=== PATIENT | female | born 1985 | race Caucasian/White ===

== ENCOUNTER 2018-01-18 17:50 | Emergency (ER) | payer OTHER, SELFPAY ==
[2018-01-18 17:51] VITALS: BP 115/76; PULSE 113; RESP 14; TEMP 37.3; O2SAT 98; BMI 27.0
--- NOTE | 2018-01-18 18:18 | CT_ITS ---
STUDY: CT ABDOMEN AND PELVIS WITHOUT CONTRAST REASON FOR EXAM: Female, 32 years old. Right lower quadrant pain RADIATION DOSAGE (If Supplied By Facility): CTDIvol = ( 7.40 ) mGy, DLP = ( 392.08 ) mGycm TECHNIQUE: Transaxial images were obtained from the dome of the diaphragm to the symphysis pubis without oral contrast, and without intravenous contrast. Sagittal and coronal images were reconstructed. Individualized dose optimization techniques were used for this CT. COMPARISON: None. FINDINGS: Nonspecific 3 mm peripheral right middle lobe nodule is noted. The visualized portions of the heart are within normal limits. Normal liver. Normal gallbladder and extrahepatic biliary system. Normal spleen. Normal pancreas. Normal bilateral adrenal glands. Normal right kidney. Normal left kidney. Normal visualized stomach. Possible mild ileus of the small intestine. Mild wall thickening of the terminal ileum. Normal colon. The appendix is visualized and appears normal. Normal abdominal aorta. Normal inferior vena cava. Normal retroperitoneum. Normal urinary bladder. Mild pelvic free fluid. Normal uterus. Normal abdominal wall. Normal osseous structures. CT/Abdomen/Pel W ORAL Cont Only IMPRESSION: Possible mild small bowel ileus. Mild wall thickening of the terminal ileum. Mild pelvic free fluid. Normal appendix. Electronically Signed: Madi Jacobs DO at 20:52 EDT Tel [phone], Service support ,
--- NOTE | 2018-01-18 18:18 | NURSING ---
DR GUO PAGED
[2018-01-18 18:29] LABS: Absolute Lymphocyte Count 1.04 X10^3/ul (0.83-4.51); Absolute Neutrophil Count 10.2 X10^3/uL (2.0-7.7); Eosinophils% 0.9 % (0-5); Hematocrit 40.6 % (37-47); Hemoglobin 13.7 g/dl (12.0-15.0); Lymphocyte # 1.04 X10^3/ul (4.0); Lymphocyte % 8.9 % (19-41); Mean Corp Hgb Conc 33.7 g/gl (32-36); Mean Corpuscular Hgb 28.8 pg (27.0-32.0); Mean Corpuscular Volume 85.3 fL (81-99); Mean Platelet Vol. 10.6 fl (6.2-12.0); Monocyte# 0.43 X10^3/uL; Monocyte% 3.7 % (0-10); Neutrophil # 10.15 X10^3/uL (2.7-7.7); Neutrophil % 86.3 % (47-70); POSITIVE COUNT NO; POSITIVE DIFFERENTIAL NO; POSITIVE MORPHOLOGY NO; Platelet Count 198 K/mm3 (150-450); RBC Distribution Width CV 12.4 % (11.6-14.6); RBC Distribution Width SD 38.4 fl (35.1-43.9); Red Blood Count 4.76 M/mm3 (4.2-5.4); White Blood Count 11.7 K/mm3 (4.4-11.0)
[2018-01-18 18:40] LABS: Anion Gap 9 (5-15); BUN 8 mg/dL (7-18); Calcium,Total 8.5 mg/dL (8.5-10.1); Chloride 104 mmol/L (98-107); EST Glomerular Filtration Rate 88 mL/min (>60); Est Glom Filt Rate - Afr Amer 106 mL/min (>60); Estimated Creatinine Clearance 90.84 ml/min; Glucose 84 mg/dL (74-106); Potassium 3.6 mmol/L (3.5-5.1); Sodium Level 137 mmol/L (136-145)
[2018-01-18 18:44] LABS: Pregnancy, Serum, hCG Quali. NEGATIVE Negative (0-9 Nonpreg)
[2018-01-18] MEDS: 0.9% Normal Saline 1,000 ML 1000 ML IV (18:47)
[2018-01-18] MEDS: Ondansetron 4 MG/2 ML Vial IV (18:47)
[2018-01-18 20:22] VITALS: BP 126/80; PULSE 97; RESP 18; O2SAT 99
--- NOTE | 2018-01-18 21:49 | ED.VISSUMM ---
- ER Visit Summary Date of Service: 01/18/18 Chief Complaint: Abdominal pain nausea vomiting History of Present Illness: The patient is a 32 F presenting for evaluation secondary to abdominal pain nausea vomiting. Patient states that she had a relatively sudden onset of right lower quadrant abdominal pain nausea and vomiting at about 730 this morning. Patient states that she had 2 episodes of nonbloody nonbilious emesis, and has had continually worsening pain in her right lower quadrant. Patient states that this is worse with movement palpation and in the car ride. She denies any diarrhea. She does endorse that she has had some subjective fevers. Last menstrual cycle 2 weeks ago, denies any urinary symptoms or vaginal symptoms. Review of systems otherwise negative. Physical Examination: Vital signs are within normal limits, patient is afebrile. General: Patient is well-nourished well-developed and in no acute distress. Head: Normocephalic, atraumatic Eyes: Pupils equal round and reactive bilaterally, extra occular motion intact bialterally ENT: Moist mucous membranes Neck: Supple, no lymphadenopathy, no JVD, no meningismus CVS: Heart regular rate and rhythm, no murmurs, rubs or gallops, radial pulses 2+ bilaterally Resp: Respirations nondistressed, lung sounds clear bilaterally Abdomen: Tenderness in the right lower quadrant over McBurney's point with positive Rovsing obturator and psoas signs. Back: Nontender Extremities: Nontender, atraumatic, active full range of motion, no peripheral edema Skin: warm, no rashes, no petechia Neuro: Alert and oriented x 4, CN 2-12 intact, no lateralizing neurological defecits Psyc: Normal affect Test Results: CBC shows mild leukocytosis of 11, chemistry negative, test negative, CT abdomen and pelvis with p.o. contrast shows a mild ileus with ileitis in the terminal ileum Emergency Department Course and Treatment: Patient presented with abdominal pain. Patient's physical exam was very concerning for the possibility of appendicitis. Patient was given morphine Zofran and a liter normal saline. She did have improvement of her symptoms on repeat evaluation. Patient has a mild leukocytosis, CT abdomen and pelvis shows a normal appendix but did show a possible ileitis in the terminal ileum. I discussed this with general surgery Dr. Allen, and we are in agreement that the patient does not require admission but she likely should have GI follow-up for the possibility of inflammatory bowel disease. Patient will be discharged with a course of Percocet and Zofran. She was given signs and symptoms for which to return. Disposition: Discharge Impression: 1. Terminal ileitis This note was generated with [employer] dictation software. It may contain incorrect words, spelling, and punctuation that were not noted in review of the chart prior to signing ED Disposition - Plan for ED Patient: Disposition: Home or Assisted Living Chief Complaint: Abd Pain Diagnosis: Ileitis, terminal Instructions: ED Abdominal Pain Unkn Cause Prescriptions: Hydrocodone Bitart/Apap 5-325 [[place] 5/325] 1 tab PO Q4H PRN PRN 3 Days #12 tab PRN Reason: Pain Ondansetron [Zofran Odt] 4 mg PO Q8H PRN PRN #10 tab PRN Reason: Nausea Referrals: Bright Moreno MD [STAFF PHYSICIAN] - As soon as possible
--- NOTE | 2018-01-18 21:59 | ED.DCSUM_ITS ---
- ER Visit Summary Date of Service: 01/18/18 Chief Complaint: Abdominal pain nausea vomiting History of Present Illness: The patient is a 32 F presenting for evaluation secondary to abdominal pain nausea vomiting. Patient states that she had a relatively sudden onset of right lower quadrant abdominal pain nausea and vomiting at about 730 this morning. Patient states that she had 2 episodes of nonbloody nonbilious emesis, and has had continually worsening pain in her right lower quadrant. Patient states that this is worse with movement palpation and in the car ride. She denies any diarrhea. She does endorse that she has had some subjective fevers. Last menstrual cycle 2 weeks ago, denies any urinary symptoms or vaginal symptoms. Review of systems otherwise negative. Physical Examination: Vital signs are within normal limits, patient is afebrile. General: Patient is well-nourished well-developed and in no acute distress. Head: Normocephalic, atraumatic Eyes: Pupils equal round and reactive bilaterally, extra occular motion intact bialterally ENT: Moist mucous membranes Neck: Supple, no lymphadenopathy, no JVD, no meningismus CVS: Heart regular rate and rhythm, no murmurs, rubs or gallops, radial pulses 2 + bilaterally Resp: Respirations nondistressed, lung sounds clear bilaterally Abdomen: Tenderness in the right lower quadrant over McBurney's point with positive Rovsing obturator and psoas signs. Back: Nontender Extremities: Nontender, atraumatic, active full range of motion, no peripheral edema Skin: warm, no rashes, no petechia Neuro: Alert and oriented x 4, CN 2-12 intact, no lateralizing neurological defecits Psyc: Normal affect Test Results: CBC shows mild leukocytosis of 11, chemistry negative, test negative, CT abdomen and pelvis with p.o. contrast shows a mild ileus with ileitis in the terminal ileum Emergency Department Course and Treatment: Patient presented with abdominal pain. Patient's physical exam was very concerning for the possibility of appendicitis. Patient was given morphine Zofran and a liter normal saline. She did have improvement of her symptoms on repeat evaluation. Patient has a mild leukocytosis, CT abdomen and pelvis shows a normal appendix but did show a possible ileitis in the terminal ileum. I discussed this with general surgery Dr. Allen, and we are in agreement that the patient does not require admission but she likely should have GI follow-up for the possibility of inflammatory bowel disease. Patient will be discharged with a course of Percocet and Zofran. She was given signs and symptoms for which to return. Disposition: Discharge Impression: 1. Terminal ileitis This note was generated with [employer] dictation software. It may contain incorrect words, spelling, and punctuation that were not noted in review of the chart prior to signing ED Disposition - Plan for ED Patient: Disposition: Home or Assisted Living Chief Complaint: Abd Pain Diagnosis: Ileitis, terminal Instructions: ED Abdominal Pain Unkn Cause Prescriptions: Hydrocodone Bitart/Apap 5-325 [[place] 5/325] 1 tab PO Q4H PRN PRN 3 Days #12 tab PRN Reason: Pain Ondansetron [Zofran Odt] 4 mg PO Q8H PRN PRN #10 tab PRN Reason: Nausea Referrals: Bright Moreno MD [STAFF PHYSICIAN] - As soon as possible
[2018-01-18] MEDS: HYDROcodone Bitartrate/Apap 5/325 Tablet PO (22:16)
[2018-01-18 22:18] VITALS: BP 119/87; PULSE 96; RESP 16; O2SAT 97
== END 2018-01-18 22:18 | disposition home or self-care (01) ==
PROVIDERS: Emergency Provider Emergency Medicine; Family Provider Family Medicine; PCP Family Medicine
DX: K50.00 Crohn's disease of small intestine without complications (principal); D72.829 Elevated white blood cell count, unspecified; F32.9 Major depressive disorder, single episode, unspecified; Z79.899 Other long term (current) drug therapy
CPT/HCPCS: 74176; 80048; 84703; 85025; 96374; 96375; 99283; J7030; A4216; J2405

== ENCOUNTER 2018-03-10 17:30 | Outpatient (RCR) | payer OTHER, SELFPAY ==
--- NOTE | 2018-01-13 15:21 | HP.PTEVAL_ITS ---
Patient's Visit Information CHERISE GERBER is a 32 year old F referred to Physical Therapy by MD HAILEE Scruggs with a diagnosis of LOW BACK PAIN. Date of Evaluation: 01/13/18 Physical Therapist: Jan Antunez PT, - Visit Plan Frequency: 2x /Week Duration: 6 Weeks Plan: intially modlaties ,DLS ,POSTURAL, EX'S STRENGTHENING - Subjective Subjective: This 32 y/o female presents to physical therapy with low back pain many years. Patient has symmtrical lumbar L-S pain. Symptoms worse with bending, side ,backwards ,sitting,standing. Symptoms better with nothing,rest.No trauma or accident. Denies parathesia/tingling. Patient stated possible daughter kicked back when sleeping.Described as ache. Pain affects sleeping. Coughing/ sneezing can increase symptoms. Bowel/bladder good . Patient has overcounter TENS UNIT.Pain housework tasks and ADL'S.Patient has had chiropractor manipulation,estim. 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 SOCAIL: single 1 childern - Pain Bilateral Back Pain Intensity (Out of 10): 4 Pain Intensity Range: 10 - Objective POSTURE: mild foward posture. PALAPTION:L-S ,SI, paraspinals lumbar. NUERO: denies parathesia/tingling,reflexes L3-4,L4-5,L5-S1 2/3. ASSYMITIIES: leg length,pelvis. MMT: quads/hams/hip flexion,4/5,ankle 4/5. LUMBAR ROM: flexion mod loss,extension mod/severe loss,sisde glides min/mod loss. FLEXABILITY: min/ mod hams. TA ACTIVATION: absent - Special Tests L/S Slump test left side: Positive L/S Slump test right side: Positive L/S Left Straight Leg Raise: Positive L/S Right Straight Leg Raise: Positive Lumbar Standing: Flexion - Mechanical Response: No effect Lumbar Standing: Flexion - Symptoms During Testing: Increases Lumbar Standing: Flexion - Symptoms After Testing: Worse Lumbar Standing: Extension - Mechanical Response: No effect Lumbar Standing: Extension - Symptoms During Testing: Increases Lumbar Standing: Extension - Symptoms After Testing: No worse Lumbar Standing: Right Side Glides - Mechanical Response: No effect Lumbar Standing: Right Side [place] - Symptoms During Testing: Increases Lumbar Standing: Right Side [place] - Symptoms After Testing: No worse Lumbar Standing: Left Side [place] - Mechanical Response: No effect Lumbar Standing: Left Side [place] - Symptoms During Testing: Increases Lumbar Standing: Left Side [place] - Symptoms After Testing: No worse Lumbar Lying: Flexion - Mechanical Response: No effect Lumbar Lying: Flexion - Symptoms During Testing: Increases Lumbar Lying: Flexion - Symptoms After Testing: No worse Lumbar Lying: Extension - Mechanical Response: No effect Lumbar Lying: Extension - Symptoms During Testing: Increases Lumbar Lying: Extension - Symptoms After Testing: No worse - Goals Goal 1:: Independant with HEP Goal Time Frame: 4-6 Weeks Goal 2:: Independant with posture for ADL'S Goal Time Frame: 4-6 Weeks Goal 3:: Decrease lumbar pain by 50% or greater to improve function with ADL'S and job demnads/housework. Goal Time Frame: 4-6 Weeks Goal 4:: Patient improve lumbar ROM for function of recovery Goal Time Frame: 4-6 Weeks Goal 5:: Patient increase core strength to improve function pelvic lumbar Goal Time Frame: 4-6 Weeks Goal 6:: Patient be able to perform ADLS' and housework task with min limiations Goal Time Frame: 4-6 Weeks - Rehabilitation Potential Physical Therapy Diagnosis: This patient has symmtrical lumbar pain with pain , poor loss of motion,poor core activation,strength impairs fu nction and ADL'S Rehabilitation Potential: Good - Anticipated Interventions Patient/Client Instruction: Educate patient on: Condition, Plan of Care For the Purpose of:: To decrease pain, To increase ROM, To improve muscle performance and motor function, To improve ability to perform ADL's, To increase tolerance to activity/condition/position, To improve ability of physical actions for home/community/work/leisure, To improve gait and locomotor functions, To improve health of tissue, To decrease soft tissue restriction, To increase flexibility/ROM, To improve ability to perform tasks related to life management Therapeutic Exercise to Include: Strength training, Body mechanics, Postural training, Flexibilty training, Dynamic Lumbar Stabilization, [place] Exercises For the Purpose of:: To decrease pain, To increase ROM, To improve muscle performance and motor function, To improve ability to perform ADL's, To increase tolerance to activity/condition/position, To improve ability of physical actions for home/community/work/leisure, To improve health of tissue, To decrease soft tissue restriction, To increase flexibility/ROM, To improve endurance, To improve ability to perform tasks related to life management TENS: Yes IF ES: Yes Cryotherapy (ice pack, ice massage): Yes Thermo therapy (hot pack): Yes Ultrasound (thermal/non thermal): Yes For the Purpose of:: To decrease pain, To increase ROM, To improve muscle performance and motor function, To increase tolerance to activity/condition/ position, To improve performance and independence with ADL's, To improve ability of physical actions for home/community/work/leisure, To improve health of tissue, To decrease soft tissue restriction, To increase flexibility/ROM, To improve endurance, To improve ability to perform tasks related to life management Thank you for the opportunity to evaluate your patient. For Medicare and Medicare HMO plans, please review the plan of care and approve it. It will need to be FAXED BACK to us at [phone] for Medicare purposes. Please let me know if there are questions or concerns regarding this plan of care. Physician Signature: Date:
--- NOTE | 2018-06-15 13:22 | HP.PTDCNRP_ITS ---
HP - Discharge Summary (1) - Patient Information CHERISE GERBER was seen in my office for initial evaluation on 01/13/18. The following Plan of Care was established for this patient: Initial Frequency: 2x /Week Initial Duration: 6 Weeks - Anticipated Interventions Patient/Client Instruction: Educate patient on: Condition, Plan of Care For the Purpose of:: To decrease pain, To increase ROM, To improve muscle performance and motor function, To improve ability to perform ADL's, To increase tolerance to activity/condition/position, To improve ability of physical actions for home/community/work/leisure, To improve gait and locomotor functions, To improve health of tissue, To decrease soft tissue restriction, To increase flexibility/ROM, To improve ability to perform tasks related to life management Therapeutic Exercise to Include: Strength training, Body mechanics, Postural training, Flexibilty training, Dynamic Lumbar Stabilization, [place] Exercises For the Purpose of:: To decrease pain, To increase ROM, To improve muscle performance and motor function, To improve ability to perform ADL's, To increase tolerance to activity/condition/position, To improve ability of physical actions for home/community/work/leisure, To improve health of tissue, To decrease soft tissue restriction, To increase flexibility/ROM, To improve endurance, To improve ability to perform tasks related to life management TENS: Yes IF ES: Yes Cryotherapy (ice pack, ice massage): Yes Thermo therapy (hot pack): Yes Ultrasound (thermal/non thermal): Yes For the Purpose of:: To decrease pain, To increase ROM, To improve muscle performance and motor function, To increase tolerance to activity/condition/ position, To improve performance and independence with ADL's, To improve ability of physical actions for home/community/work/leisure, To improve health of tissue, To decrease soft tissue restriction, To increase flexibility/ROM, To improve endurance, To improve ability to perform tasks related to life management This patient was last seen in our office 03/03/18. Pertinent comments regarding their Physical therapy will appear below: This patient seen for PT for low back pain with PT interventions focusing DLS, postural ex's,modalties for pain relieve,patient education. Patient progressed well managing pain thus is d/c. At this point I will be discontinuing this patient from physical therapy. I would be happy to see this patient again in the future if found appropriate by the physician. Thank you! Jan Antunez, PT,
== END 2018-03-10 19:00 | disposition home or self-care (01) ==
LOC: PT 17:30
PROVIDERS: Family Provider Family Medicine; PCP Family Medicine; Visit Provider Family Medicine
DX: M54.5 Low back pain (principal)
CPT/HCPCS: 97014; 97035; 97110; 97161; G0283

== ENCOUNTER 2019-02-14 00:43 | Emergency (ER) | payer BC, SELFPAY ==
[2019-02-14 00:45] VITALS: BP 121/85; PULSE 98; RESP 18; TEMP 36.6; O2SAT 100; BMI 26.7
[2019-02-14 00:51] VITALS: RESP 18
--- NOTE | 2019-02-14 01:05 | ED.VISSUMM ---
- ER Visit Summary Date of Service: 02/14/19 Chief Complaint: Right lower quadrant abdominal pain History of Present Illness: The patient is a 33 F who presents for 5 hours of right lower quadrant abdominal pain. Patient states it woke her from sleep. She is having associated nausea. Pain is worse with any movement. The car ride here was uncomfortable. Patient denies any vomiting. She did have an episode of diarrhea yesterday after eating lactose-containing food, she is lactose intolerant. She denies ever having abdominal pain like this after eating lactose. No fever, cough, shortness of breath, chest pain, back pain, vaginal bleeding or discharge, or urinary symptoms. Last menstrual period was 1 week ago. Patient had similar symptoms approximately 1 year ago with the right lower quadrant pain and had a workup for appendicitis that showed a normal appendix but did show terminal ileitis. Patient followed up with Dr. Moreno for colonoscopy that patient states did not show any sign of inflammatory bowel disease or any other abnormalities. Physical Examination: Vital signs: afebrile, hemodynamically stable, no hypoxia on room air General: well nourished, well developed, in no distress, appears uncomfortable, sitting very still Skin: warm, dry, no rash, no pallor HEENT: normocephalic and atraumatic; PERRL, EOMI, moist mucous membranes Cardiovascular: regular rate and rhythm without murmurs, no peripheral edema, 2+ pulses all distal extremities Respiratory: No increased work of breathing, lungs are clear to auscultation bilaterally, no rales, rhonchi or wheezing Abdominal: Abdomen is soft, tenderness in the right lower quadrant, maximal at McBurney's point, negative Rovsing sign, positive obturator sign, negative psoas sign; with normoactive bowel sounds, no guarding or rebound, no masses MSK: Moves all extremities, no deformities, normal strength Neuro: Awake and alert, oriented ?4. No facial droop, sensation and motor function intact and symmetric Test Results: Clinical Impression(s) from Imaging Studies Abdomen/Pelvis CT 02/14/19 01:15 IMPRESSION: No acute findings in the abdomen or pelvis. Specifically there is no acute appendicitis or diverticulitis. A small amount of free fluid in cul-de-sac. This may be physiologic Electronically Signed: Laurent Harrison MD at 2:10 EDT Tel , Service support , Abnormal Lab Results 02/14/19 02/14/19 02/14/19 00:45 00:50 00:50 WBC 13.5 H RBC 4.55 Hgb 13.6 Hct 39.7 MCV 87.3 MCH 29.9 MCHC 34.3 RDW 12.8 RDW Differential 39.8 Plt Count 263 MPV 10.7 Immature Gran % (Auto) 0.100 Neut % (Auto) 83.9 H Lymph % (Auto) 10.5 L [place] % (Auto) 5.0 Eos % (Auto) 0.4 Baso % (Auto) 0.1 Absolute Neuts (auto) 11.3 H Absolute Lymphs (auto) 1.42 Total Counted Not Reportable Sodium 139 Potassium 3.2 L Chloride 107 Carbon Dioxide 27.0 Anion Gap 5 BUN 9 Creatinine 0.80 Estim Creat Clear Calc 90.00 Est GFR (MDRD) Af Amer 106 Est GFR (MDRD) Non-Af 87 BUN/Creatinine Ratio 11.2 Glucose 91 Calcium 8.1 L Total Bilirubin 1.20 H AST 12 L ALT 17 Alkaline Phosphatase 43 L Total Protein 6.8 Albumin 3.6 Globulin 3.2 Albumin/Globulin Ratio 1.1 Serum , Qual Urine Color Yellow Urine Clarity Cloudy Urine pH 5.0 Ur Specific [place] 1.020 Urine Protein Negative Urine Glucose (UA) Normal Urine Ketones 5 H Urine Occult Blood 150 H Urine Nitrite Negative Urine Bilirubin Negative Urine Urobilinogen Normal Ur Leukocyte Esterase 100 H Urine RBC 0-5 SEEN Urine WBC 10-25 SEEN Ur Squamous Epith Cells 10-25 SEEN Urine Bacteria 2+ Urine Mucus 0 SEEN 02/14/19 00:50 WBC RBC Hgb Hct MCV MCH MCHC RDW RDW Differential Plt Count MPV Immature Gran % (Auto) Neut % (Auto) Lymph % (Auto) [place] % (Auto) Eos % (Auto) Baso % (Auto) Absolute Neuts (auto) Absolute Lymphs (auto) Total Counted Sodium Potassium Chloride Carbon Dioxide Anion Gap BUN Creatinine Estim Creat Clear Calc Est GFR (MDRD) Af Amer Est GFR (MDRD) Non-Af BUN/Creatinine Ratio Glucose Calcium Total Bilirubin AST ALT Alkaline Phosphatase Total Protein Albumin Globulin Albumin/Globulin Ratio Serum , Qual NEGATIVE Urine Color Urine Clarity Urine pH Ur Specific [place] Urine Protein Urine Glucose (UA) Urine Ketones Urine Occult Blood Urine Nitrite Urine Bilirubin Urine Urobilinogen Ur Leukocyte Esterase Urine RBC Urine WBC Ur Squamous Epith Cells Urine Bacteria Urine Mucus Medications Given Hydrocodone Bitart/Acetaminophen ([place] 5mg-325mg) 0 tablet PO .TAKE HOME MED THANH Ondansetron HCl (Zofran Odt) 0 mg PO .TAKE HOME MED THANH Discontinued Medications Sodium Chloride () 1,000 mls @ 1,000 mls/hr IV .Q1H ONE Stop: 02/14/19 02:14 Last Admin: 02/14/19 01:24 Dose: 1,000 mls/hr Ketorolac Tromethamine (Toradol) 15 mg IV X1 ONE Stop: 02/14/19 02:22 Morphine Sulfate () 4 mg IV X1 ONE Stop: 02/14/19 01:16 Last Admin: 02/14/19 01:26 Dose: 4 mg Ondansetron HCl (Zofran) 4 mg IV X1 ONE Stop: 02/14/19 01:16 Last Admin: 02/14/19 01:25 Dose: 4 mg Emergency Department Course and Treatment: Patient was given IV fluids, morphine and Zofran. Patient's symptoms are concerning for possible appendicitis, thus CT scan of the abdomen and pelvis was performed. test negative. Patient had a leukocytosis of 13.5. CT scan of the abdomen and pelvis showed a normal appendix and no sign of diverticulitis or other inflammatory conditions. It did show prominent ovaries bilaterally and mild amount of free fluid in the cul-de-sac. Patient was reevaluated and had improvement of her pain with the medications. The right hemipelvis was palpated and had no tenderness or masses. Pain was more localized in McBurney's point. Thus ovarian torsion is highly unlikely and pelvic ultrasound was not performed. Patient was given Toradol for her residual pain. She was given prescription for Zofran and [place] to use for severe pain. Patient discharged home and is to return if any worsening of her condition. Treatment Plan: [] Disposition: [] Impression: Right sided abdominal pain of unknown origin This note was generated with [employer] software. It may contain incorrect words, spelling, and punctuation that were not noted in review of the chart prior to signing ED Disposition - Plan for ED Patient: Disposition: Home or Assisted Living Instructions: ED Abdominal Pain Unkn Cause, ED Abdominal Pain Appendx Poss Prescriptions: Hydrocodone Bitart/Apap 5-325 [[place] 5MG-325MG] 1 tab PO Q6H PRN PRN 2 Days #6 tab PRN Reason: Pain Ondansetron [Zofran Odt] 4 mg PO Q8H PRN PRN #10 tab PRN Reason: Nausea Referrals: Mariann La MD [Primary Care Provider] - 3-5 Days if not improving Additional Instructions: Your workup today did not show any concerning findings for appendicitis. However if your symptoms worsen, you develop new concerning symptoms such as high fever, uncontrolled vomiting, dizziness or lightheadedness, or change in your abdominal pain, please return to the emergency department for another evaluation. Sometimes early appendicitis or other abdominal problems do not show up on CAT scans if it is early in the course of illness. Use [id number] ibuprofen or naproxen as needed for abdominal pain. Use the [place] for severe pain. Use Zofran as needed for nausea. If you have any worsening of your condition or any new concerning symptoms, please return immediately to the emergency department for another evaluation.
--- NOTE | 2019-02-14 01:15 | CT_ITS ---
STUDY: CT ABDOMEN AND PELVIS WITH CONTRAST REASON FOR EXAM: Female, 33 years old. Right-sided abdominal pain and nausea RADIATION DOSAGE (If Supplied By Facility): CTDIvol = ( 12.08 ) mGy, DLP = ( 741.88 ) mGycm TECHNIQUE: Transaxial images were obtained from the dome of the diaphragm to the symphysis pubis without oral contrast. 100ML IV Isovue 370 was administered. Sagittal and coronal images were reconstructed. Individualized dose optimization techniques were used for this CT. COMPARISON: None. FINDINGS: The lung bases are clear. The liver is normal. No dilated intrahepatic biliary radicles. The gallbladder is normal with no calcifications within it. There is no pericholecystic fluid collection or streakiness The spleen is normal. The pancreas is normal. Both adrenals are normal. The kidneys are normal with no masses, calculi or hydronephrosis The stomach is normal. There is no bowel distention, acute appendicitis or diverticulitis. No constricting lesions are seen in large bowel. The abdominal wall is intact with no hernias. There is no ascites or any free intraperitoneal air. No indication of epiploic appendagitis The vascular structures in the retroperitoneum are normal. There is no retrocrural, retroperitoneal or mesenteric adenopathy. The bones and joints are normal. The urinary bladder is normal.--The uterus is retroverted.. A small amount of free fluid in the cul-de-sac. Prominent ovaries are seen bilaterally. A 1.8 cm cyst in the left ovary.. There is no inguinal or pelvic adenopathy. There is no inguinal hernia. . . CT/Abdomen/Pelvis W IV Cont ONLY IMPRESSION: No acute findings in the abdomen or pelvis. Specifically there is no acute appendicitis or diverticulitis. A small amount of free fluid in cul-de-sac. This may be physiologic Electronically Signed: Laurent Harrison MD at 2:10 EDT Tel , Service support ,
[2019-02-14] MEDS: 0.9% Normal Saline 1,000 ML 1000 ML IV (01:24)
[2019-02-14 01:25] LABS: Mucous, Urine 0 SEEN /hpf (<or=2+)
[2019-02-14] MEDS: Ondansetron 4 MG/2 ML Vial IV (01:25)
[2019-02-14] MEDS: Morphine 4 MG/ML Syringe IV (01:26)
[2019-02-14 01:28] LABS: Absolute Lymphocyte Count 1.42 X10^3/ul (0.83-4.51); Absolute Neutrophil Count 11.3 X10^3/uL (2.0-7.7); Basophil# 0.01 X10^3/uL; Basophil% 0.1 % (0-1); Eosinophil# 0.06 X10^3/uL; Eosinophils% 0.4 % (0-5); Hematocrit 39.7 % (37-47); Hemoglobin 13.6 g/dl (12.0-15.0); Lymphocyte # 1.42 X10^3/ul (4.0); Lymphocyte % 10.5 % (19-41); Mean Corp Hgb Conc 34.3 g/gl (32-36); Mean Corpuscular Hgb 29.9 pg (27.0-32.0); Mean Corpuscular Volume 87.3 fL (81-99); Mean Platelet Vol. 10.7 fl (6.2-12.0); Monocyte# 0.67 X10^3/uL; Neutrophil # 11.32 X10^3/uL (2.7-7.7); Neutrophil % 83.9 % (47-70); Platelet Count 263 K/mm3 (150-450); RBC Distribution Width CV 12.8 % (11.6-14.6); RBC Distribution Width SD 39.8 fl (35.1-43.9); Red Blood Count 4.55 M/mm3 (4.2-5.4); White Blood Count 13.5 K/mm3 (4.4-11.0)
[2019-02-14 01:28] LABS: Color, Urine Yellow (Yellow); Glucose, Dipstick Normal (Normal); Ketone-Dipstick 5 mg/dl (Negative); Leukocyte Esterase-Dipstick 100 /ul (Negative); Nitrite-Dipstick Negative (Negative); Occult Blood-Urine 150 /ul (Negative); Protein-Dipstick Negative (Negative); Urine Bilirubin Dipstick Negative (Negative); Urine Clarity Cloudy (Clear); Urine Urobilinogen Normal (Normal)
[2019-02-14 01:29] LABS: POSITIVE COUNT NO; POSITIVE DIFFERENTIAL NO; POSITIVE MORPHOLOGY NO
[2019-02-14 01:33] LABS: Bacteria 2+ /hpf (None Seen); Squamous Epithelial Cells - UA 10-25 SEEN /hpf (5-10); White Blood Cells 10-25 SEEN /hpf (0-5)
[2019-02-14 01:34] LABS: Red Blood Cells-Urine 0-5 SEEN /hpf (0-5)
[2019-02-14 01:40] LABS: ALB/GLOB Ratio 1.1 RATIO (0.9-2.4); AST(SGOT) 12 U/L (15-37); Alanine Aminotransfer ALT/SGPT 17 U/L (13-56); Albumin, Serum 3.6 g/dL (3.2-5.0); Alkaline Phosphatase 43 U/L (45-117); Anion Gap 5 (5-15); BUN 9 mg/dL (7-18); BUN/Creat Ratio 11.2 RATIO (10-20); Calcium,Total 8.1 mg/dL (8.5-10.1); Chloride 107 mmol/L (98-107); EST Glomerular Filtration Rate 87 mL/min (>60); Est Glom Filt Rate - Afr Amer 106 mL/min (>60); Globulin 3.2 g/dL (2.2-4.2); Glucose 91 mg/dL (74-106); Potassium 3.2 mmol/L (3.5-5.1); Protein, Total 6.8 g/dL (6.4-8.2); Sodium Level 139 mmol/L (136-145)
[2019-02-14 01:42] LABS: Pregnancy, Serum, hCG Quali. NEGATIVE Negative (0-9 Nonpreg)
[2019-02-14] MEDS: Ketorolac 15 MG/ML Vial IV (02:38)
[2019-02-14] MEDS: Ondansetron ODT 4 MG Tablet PO (02:41)
[2019-02-14] MEDS: HYDROcodone Bitartrate/Apap 5/325 Tablet PO (02:42)
[2019-02-14 02:43] VITALS: BP 105/75; PULSE 73; RESP 16; O2SAT 100
== END 2019-02-14 02:50 | disposition home or self-care (01) ==
PROVIDERS: Emergency Provider Emergency Medicine; Family Provider Family Medicine; PCP Family Medicine
DX: R10.31 Right lower quadrant pain (principal)
CPT/HCPCS: 74177; 80053; 81001; 84703; 85025; 96361; 96374; 96375; 99284; J7030; Q9967; A4216; J2405

== ENCOUNTER → 2019-03-13 | Outpatient (CLI) | payer BC, SELFPAY ==
[2019-03-13 07:19] VITALS: BMI 26.7
--- NOTE | 2019-03-13 07:32 | RAD_ITS ---
STUDY: X-RAY - RIGHT WRIST REASON FOR EXAM: Female, 33 years old. Pain at the base of the thumb TECHNIQUE: 3 view(s) of the wrist were obtained. COMPARISON: None. FINDINGS: Normal visualized distal radius and ulna. Normal radiocarpal articulation. Normal distal radioulnar articulation. Normal carpal bones. 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 Normal carpometacarpal articulation of the thumb. Normal second through fifth carpometacarpal articulations. Normal visualized metacarpal bones. The soft tissue structures are unremarkable. 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 Electronically Signed: Marivel Mejia, at 8:00 EDT Tel , Service support ,
== END | disposition home or self-care (01) ==
LOC: HPRAD 07:30
PROVIDERS: Family Provider Family Medicine; PCP Family Medicine; Referring Provider Physician Assistant Surgical; Visit Provider Physician Assistant Surgical
DX: S66.911A Strain of unspecified muscle, fascia and tendon at wrist and hand level, right hand, initial encounter (principal)
CPT/HCPCS: 73110

== ENCOUNTER → 2019-03-22 | Outpatient (CLI) | payer OTHER, BC, SELFPAY ==
[2019-03-13 07:19] VITALS: BMI 26.7
--- NOTE | 2019-03-22 10:25 | NEURO ---
NCS and/or EMG Patient Report Ordering Doctor: Td Hightower DATE OF SERVICE: 03/22/19 This is a right upper extremity nerve conduction study and EMG performed on this 33-year-old female with symptoms primarily in her right wrist. She says she has had pain for 5 to 6 years but this became worse approximately 6 months ago associated with repetitive hand movements at work. He describes pain as primarily affecting her wrist however at times she experiences numbness radiating into all fingers. Is healthy otherwise. Right upper extremity sensory and motor nerve conduction studies performed. There is very mild prolongation of the median motor and sensory distal latencies with preservation of amplitudes and conduction velocities. The ulnar motor and sensory and radial sensory responses are normal. The median and ulnar F-wave latencies are normal. Right upper extremity needle electromyography is performed. Muscles evaluate included the first dorsal interosseous, abductor pollicis brevis, brachial radialis, biceps, triceps and deltoid muscles. All muscles demonstrated normal insertional activity with absence of pathologic spontaneous activity. Motor unit potential recruitment pattern and amplitude is normal in all muscles tested. Impression: This study demonstrates very mild carpal tunnel syndrome at the wrist however this does not appear to be clinically significant, the patient primarily describes pain localized to the wrist joint. Otherwise normal study.
== END | disposition home or self-care (01) ==
LOC: PSN 07:16
PROVIDERS: Family Provider Family Medicine; PCP Family Medicine; Referring Provider Physician Assistant Surgical; Visit Provider Physician Assistant Surgical
DX: S63.501A Unspecified sprain of right wrist, initial encounter (principal)
CPT/HCPCS: 95886; 95910

== ENCOUNTER → 2019-04-27 | Outpatient (CLI) | payer BC, SELFPAY ==
[2019-04-21 06:36] VITALS: BMI 26.7
== END | disposition home or self-care (01) ==
LOC: LABSPEC 14:20
PROVIDERS: Family Provider Family Medicine; PCP Family Medicine; Referring Provider Family Medicine; Visit Provider Family Medicine
DX: J02.9 Acute pharyngitis, unspecified (principal)
CPT/HCPCS: 87070; 87077; 87186; 87205

== ENCOUNTER 2019-05-08 08:30 | Outpatient (RCR) | payer OTHER, SELFPAY ==
[2019-03-31 06:34] VITALS: BMI 26.7
--- NOTE | 2019-04-05 09:24 | HP.OTEVAL ---
Patient's Visit Information CHERISE GERBER is a 33 year old F, referred to Occupational Therapy by JACINDA Barksdale, with a diagnosis of right wrist sprain/strain. Date of Evaluation: 04/05/19 Occupational Therapist: CLIVE So/Sajan, CHT - Subjective Subjective: This 33 year old female was seen for OT [place] with dx of wrist strain. 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 . Pt went to and he rec. use of brace during the day while working and not at night, and to ice it and a 5# lift restriction. pt thinks she first saw him march 03 or february 24. Pt states she is currenly on a different line where parts are smaller and occupational therapy assist parts. symptoms now are pressure around wrist, tingling in fingers pain on radial side of wrist. pt states she was given a short thumb brace, but felt this did not limit her much so she bought a wrist cock up and has been using only at work. pt states she has not been icing. is not taking anti-inflamitory- pt arrives from work - ADLs Kitchen: Open jars, Open bottle caps, Ziplock bags Miscellaneous: Use cell phone - Pain right wrist 2 Pain Intensity Range: 1, 7 - ROM Wrist: right 50/40 left 70/55 ROM Comments: right RD 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 Pump Installer: right 5# left 25# Lateral Pinch: right 4# left 8# Tripod Pinch: right 2# left 8# - Sensation Thumb: right 2.83 left 2.83 Index: right 2.83 left 2.83 Middle: right 2.83 left 2.83 Ring: right 2.83 left 2.83 Little: right 2.83 left 2.83 - Nine Hole Peg Right: 18.05 Left: 20.74 Comments: good ability - Special Tests Phalen's (Carpal Tunnel): postitive bilateral - Quick DASH-Disab of Arm,Shoulder& Hand Quick DASH Score: 45.0000 - Goals Goal:: PT will demo an increase in assistant strength by 20# to increase independent with basic occupations of daily living to return pt to PLOF by D/C. Pt will demo an increase in lateral and tripod pinch by 2# to increase pts independent with opening baggies, containers at PLOF by D/C. Goal:: Pt will demo an increase in wrist ROM equal to unaffected wrist to return pt to PLOF with grooming, dressing and home mtg tasks by D/C. Goal:: Pt will report pain no greater than 1/10 with use of affected hand with BADLs and IADLs by d/c. Goal:: Pt will demo understanding of work/lifting and carry ergonomics to decrease stress on tendons to increase pts independent with ADLs, IADLS and work tasks by d/c. - Rehabilitation General Assessment: This 33 year old female demo with positive right wist sprain/strain. Pts limitied with strength and functional use of right UE for ADLs and work tasks. Pt would benefit from skilled OT services 2-3x week for 4 weeks. Today pt was ed on dx and need of supportive brace during work and while sleeping. pt also ed. on nerve gluides and ice.Therapy will progress pt with isometric strengthening and ed. on proper work ergo with wrist positioning. pt demo understanding and agree to POC. Rehabilitation Potential: Good - Anticipated Interventions Anticipated Interventions: A/AAROM/PROM, Strengthening, Modalities, Orthoses, Joint Protection/Energy Conservation, Ergonomic Education - Visit Plan Frequency: 2-3x /Week Duration: 4 Weeks TEXT: Thank you for the opportunity to evaluate your patient. For Medicare and Medicare HMO plans, please review the plan of care and approve it. It will need to be FAXED BACK to us at [phone] for Medicare purposes. Please let me know if there are questions or concerns regarding this plan of care. Physician Signature: Date:
--- NOTE | 2019-05-08 08:59 | HP.OTREVAL ---
JACINDA Barksdale, It has been my pleasure to treat CHERISE GERBER over the last 12 visits for right wrist sprain/strain. Please see the progress note below for an update on the occupational therapy plan of care! Subjective: pt states she is doing better- pt states she can do what she can with a 5# lift restriction- Objective/Function: right tar distributor operator strength 40# a increase from 15# a left tar distributor operator strength of 55# a increase from 25#. right lateral pinch 8# increase from 4# left lateral pinch 12# increase from 8#. right tripod pinch 18# increase from 2# left tripoid pinch strength 20# a increase from 2# Pt is demo a increase in bilateral tar distributor operator and pinch strength- pts continues on a 5# lift restriction until she returns to the dr. Plan Duration: - pt to return to Plan: new measurments. return to for re-eval - pt ed. on use of k-tape for wrist pain and support- as well as weaning from use of her wrist brace. pt demo understanding- pt to return to to decide on cortisone injection Goals - Goals Goal:: PT will demo an increase in tar distributor operator strength by 20# to increase independent with basic occupations of daily living to return pt to PLOF by D/C. Pt will demo an increase in lateral and tripod pinch by 2# to increase pts independent with opening baggies, containers at PLOF by D/C. Goal:: Pt will demo an increase in wrist ROM equal to unaffected wrist to return pt to PLOF with grooming, dressing and home mtg tasks by D/C. Goal:: Pt will report pain no greater than 1/10 with use of affected hand with BADLs and IADLs by d/c. Goal:: Pt will demo understanding of work/lifting and carry ergonomics to decrease stress on tendons to increase pts independent with ADLs, IADLS and work tasks by d/c. Anticipated Interventions Anticipated Interventions: A/AAROM/PROM, Strengthening, Modalities, Orthoses, Joint Protection/Energy Conservation, Ergonomic Education Please do not hesitate to contact me at [phone] by phone or if you have questions or concerns regarding this new plan of care! Sincerely, Kirsten Naranjo, OTR/L, CHT
--- NOTE | 2019-09-08 11:18 | HP.OTDCSUM ---
HP - OT D/C Summary It has been my pleasure to treat CHERISE GERBER under orders from JACINDA Barksdale, for the diagnosis of right wrist sprain/strain for a total of 12 visit(s). Please see the following information for a summary of their discharge status. - Overall Improvement % Improvement: 75 - Objective Objective/Function: right dipping machine operator strength 40# a increase from 15# a left dipping machine operator strength of 55# a increase from 25#. right lateral pinch 8# increase from 4# left lateral pinch 12# increase from 8#. right tripod pinch 18# increase from 2# left tripoid pinch strength 20# a increase from 2# Pt is demo a increase in bilateral dipping machine operator and pinch strength- pts continues on a 5# lift restriction until she returns to the dr. - Goals Patient Goals: Regain Strength, Decrease Pain, Decrease Tingling/Numbness Goal:: PT will demo an increase in dipping machine operator strength by 20# to increase independent with basic occupations of daily living to return pt to PLOF by D/C. Pt will demo an increase in lateral and tripod pinch by 2# to increase pts independent with opening baggies, containers at PLOF by D/C. Goal:: Pt will demo an increase in wrist ROM equal to unaffected wrist to return pt to PLOF with grooming, dressing and home mtg tasks by D/C. Goal:: Pt will report pain no greater than 1/10 with use of affected hand with BADLs and IADLs by d/c. Goal:: Pt will demo understanding of work/lifting and carry ergonomics to decrease stress on tendons to increase pts independent with ADLs, IADLS and work tasks by d/c. - Plan Plan: new measurments. return to for re-eval - pt ed. on use of k-tape for wrist pain and support- as well as weaning from use of her wrist brace. pt demo understanding- pt to return to to decide on cortisone injection - D/C Information If there are questions or concerns regarding this patient's occupational therapy, please fell free to call me at [phone]. Thank you for the referral of this patient. Sincerely, Kirsten Naranjo, OTR/L, CHT
== END 2019-05-08 19:00 | disposition home or self-care (01) ==
LOC: OT 08:30
PROVIDERS: Family Provider Family Medicine; PCP Family Medicine; Visit Provider Physician Assistant Surgical
DX: S66.911D Strain of unspecified muscle, fascia and tendon at wrist and hand level, right hand, subsequent encounter (principal)
CPT/HCPCS: 97035; 97110; 97140; 97166; 97530

== ENCOUNTER 2025-09-11 17:08 | Outpatient (CLI) | payer BC, SELFPAY ==
--- NOTE | 2025-09-11 17:15 | RAD_ITS ---
PROCEDURE: KNEE 4 OR MORE VIEWS 09/11/2025 REASON FOR EXAM: PAIN TECHNIQUE: Procedure Code: RADKN Modality: DX Procedure: KNEE 4 OR MORE VIEWS Laterality: FINDINGS: No evidence of acute fracture or dislocation. The joint spaces are maintained. No knee joint effusion. RAD/Knee 4 or More Views IMPRESSION: No acute osseous abnormalities. Reading Location: [id number]
--- OUTSIDE RECORDS SUMMARY | 2025-09-11 19:19 | XMS RPT_ITS | CCD ---
Author Organization [facility] Care Team Providers Care Nurse Administrator Name Role Phone RICA HADLEY, DR MANNING Primary Care Physician Mariann La Primary Care Provider [phone] Mariann La Primary Care Provider Mariann La Primary Care Provider RICA HADLEY, DR MANNING Primary Care Physician CASA HADLEY, HEIDY Adams Attending Unavailable RICA HADLEY, DR MANNING Primary Care Unavailable DINESH HADLEY, DR AURORA Lindsey Attending Maria Fernanda LA MD, DR MANNING Primary Care Unavailable VIV HADLEY, DR PENN Attending Ty LA MD, DR MANNING Primary Care Unavailable Mariann La Primary Care Provider RICA HADLEY, DR MANNING Primary Care Unavailable CONNOR HUTTON, DR JOEL Pardo Attending Unavailable MARIANN LA Primary Care Unavailable SEGUN MARSHALL Attending Unavailable Allergies Allergy Classification Reported Allergen(s) Allergy Type Date of Onset Reaction(s) Facility (20 sources) Ciprofloxacin; Translations: [ciprofloxacin] Drug Allergy 10-01-2017 [facility] Medications Current Medications Medication Drug Class(es) Dates Sig (Normalized) Sig (Original) albuterol MDI (90 mcg/inh) CFC free inhalation aerosol (3 sources) Start: 09-07-2023 take 1 puff(s) by inhalation every six hours as needed for wheezing albuterol MDI (90 mcg/inh) CFC free inhalation aerosol 1 puff(s), Inhalation, q6h, PRN as needed for wheezing, # 18 gram(s), 0 Refill(s) Start Date: 09/07/23 Status: Ordered Quantity: 18.0 Unit: g Repeat number: 1 Start: 09-07-2023 take 1 puff(s) by in halation every six hours as needed for wheezing albuterol MDI (90 mcg/inh) CFC free inhalation aerosol 1 puff(s), Inhalation, q6h, PRN as needed for wheezing, # 18 gram(s), 0 Refill(s) Start Date: 09/07/23 Status: Ordered amitriptyline hydrochloride 25 mg oral tablet (8 sources) Tricyclic Antidepressant Start: 01-18-2018 take 25 mg by mouth once daily Amitriptyline Active 25 MG PO DAILY January 18, 2018 12:00am Comment on above: Take 25 mg by mouth daily at bedtime. crutches, aluminum (1 source) Start: 02-06-2024 crutches, aluminum Indications: Acute right ankle pain Use as directed. 1 Each 02/06/2024 Active dextromethorphan hydrobromide 1 mg/ml / guaiFENesin 10 mg/ml oral solution (1 source) Uncompetitive B-nmuema-N-aspartat e Receptor Antagonist, Sigma-1 Agonist Start: 09-07-2023 End: 09-10-2023 dextromethorphan-g uaifenesin 10 mg-100 mg/10 mL oral liquid Dose = 5 mL, Oral, q4h, PRN as needed for cough, not to exceed 6 doses/day, X 3 day(s), # 100 mL, 0 Refill(s) Start Date: 09/07/23 Stop Date: 09/10/23 Status: Ordered Norgestimate-Ethinyl Estradiol (1 source) Progestin, Estrogen Start: 01-18-2018 take 1 tablet by mouth once daily Norgestimate-Ethin yl Estradiol Active 1 TABLET PO DAILY January 18, 2018 12:00am fluconazole 100 mg oral tablet (2 sources) Azole Antifungal Start: 02-06-2024 fluconazole (DIFLUCAN) 100 mg tablet Take 1 tablet by mouth once daily. First day take 2 tablets, then one tablet every day until gone. 15 tablet 02/06/2024 Active Start: 02-01-2024 End: 02-01-2024 fluconazole (DIFLUCAN) 150 m g tablet Indications: Candidiasis of breast Take 1 tablet by mouth one time only for 1 dose. Repeat in 3 days as needed. 2 tablet 0 02/01/2024 02/01/2024 Active Comment on above: Take 1 tablet by kenny th one time only for 1 dose. Repeat in 3 days as needed. ibuprofen 600 mg oral tablet (8 sources) Nonsteroidal Anti-inflammatory Drug Start: 7 End: 2 take 1 tablet by mouth every eight hours as needed for pain ibuprofen (MOTRIN) 600 mg tablet Indications: Right arm pain Take 1 tablet by mouth every 8 hours as needed for Pain. 30 tablet 10/01/2017 Active Comment on above: Take 1 tablet by kenny th every 8 hours as needed for Pain. meclizine hydrochloride 25 mg oral tablet (5 sources) Antiemetic Start: 3 take 1 tablet by mouth three times daily meclizine (ANTIVERT) 25 mg tab Take 1 tablet by mouth three times daily. 15 tablet 04/19/2023 Active Start: 01-02-2022 End: 01-09-2022 meclizine 25 mg oral tablet Dose : 25 mg = 1 tab(s), Oral, TID, X 7 day(s), # 21 tab(s), 0 Refill(s), 01/09/22 12:09:00 EST, Vertigo Start Date: 01/02/22 Stop Date: 01/09/22 Status: Ordered Comment on above: Take 1 tablet by kenny th three times daily. NORGESTIMATE-ETHINYL ESTRADIOL (SPRINTEC, 28, ORAL) (7 sources) NORGESTIMATE-ETH INYL ESTRADIOL (SPRINTEC, 28, ORAL) Take by mouth. Active NORGESTIMATE-ETH INYL ESTRADIOL (SPRINTEC, 28, ORAL) Take by mouth. 0 Active Comment on above: Take by mouth. PNV no.95/ferrous fum/folic ac ( ORAL) (7 sources) PNV no.95/ferrou s fum/folic ac ( ORAL) Take by mouth. Active PNV no.95/ferrou s fum/folic ac ( ORAL) Take by mouth. 0 Active Comment on above: Take by mouth. predniSONE 10 mg oral tablet (5 sources) Start: 01-02-2022 End: 01-14-2022 prednisone 10mg tab (TAPER) Taper 40-30-20-10 x 3 days each dose, Oral, qDay, Take with food/meal, # 30 tab(s), 0 Refill(s), Vertigo Start Date: 01/02/22 Stop Date: 01/14/22 Status: Ordered predniSONE (DELT ASONE) 10 mg tablet Take 10 mg by mouth as needed. Active Comment on above: Take 10 mg by mouth as needed. Multivitamins (12 sources) Start: 0 take 1 tablet by mouth once daily Multivitamins Dose = 1 tab(s), Oral, qDay, 0 Refill(s) Start Date: 06/23/20 Status: Ordered Repeat number: 1 Start: 06-23-2020 take 1 tablet by kenny th once daily Multivitamins Dose = 1 tab(s), Oral, qDay, 0 Refill(s) Start Date: 06/23/20 Status: Ordered SUMAtriptan 50 mg oral tablet (1 source) Serotonin-1b and Serotonin-1d Receptor Agonist Start: 04-20-2025 End: 05-20-2025 Imitrex 50 mg oral tablet Dose : 50 mg = 1 tab(s), Oral, qDay, PRN as needed for migraine headache, 1 tab onset , may repeat in 2 hrs. MAX 4 tab(s)/24hrs, X 30 day(s), # 9 tab(s), 0 Refill(s), 05/20/25 10:17:00 PM EDT Start Date: 04/20/25 Stop Date: 05/20/25 Status: Ordered Quantity: 9.0 Unit: tab(s) Repeat number: 1 tobramycin 3 mg/ml ophthalmic solution (1 source) Aminoglycoside Antibacterial Start: 01-13-2023 End: 01-20-2023 take 2 drop(s) into the eye(s) three times daily tobramycin (TOBREX) 0.3 % ophthalmic solution Use 2 Drops in both eyes three times daily for 7 days. 10 mL 0 01/13/2023 01/20/2023 Active Comment on above: Use 2 Drops in both eyes three times daily for 7 days. Completed/Discontinued Medications Medication Drug Class(es) Dates Sig (Normalized) Sig (Original) acetaminophen 325 mg / HYDROcodone bitartrate 5 mg oral tablet (1 source) Opioid Agonist Start: 02-14-2019 End: 02-16-2019 take 1 tablet by mouth every six hours as needed Hydrocodone-Acetamin ophen Discontinued 1 TABLET PO EVERY 6 HOURS NEEDED 6 2 February 14, 2019 2:20am February 16, 2019 12:08am ondansetron 4 mg disintegrating oral tablet (9 sources) Serotonin-3 Receptor Antagonist Start: 02-14-2019 ondansetron orally disintegrating (ZOFRAN ODT) 4 mg disintegrating tablet Take by mouth. 0 02/14/2019 Active Comment on above: Take by mouth. Problems Problem Classification Problem Date Documented Da te Episodic/Chronic Conditions associated with dizziness or vertigo (1 source) Dizziness and giddiness; Translations: [Dizziness and giddiness] Onset: 01-02-2022 Episodic Headache; including migraine (2 sources) Migraine; Translations: [Migraine, unspecified, not intractable, without status migrainosus] Onset: 04-20-2025 Chronic Headache; including migraine (1 source) Headache; Translations: [Headache, unspecified] Onset: 09-15-2023 Episodic Inflammation; infection of eye (except that caused by tuberculosis or sexually transmitteddisease) (1 source) Bilateral conjunctivitis; Translations: [Unspecified conjunctivitis] Episodic Mycoses (1 source) Candidiasis; Translations: [Other sites of candidiasis] 02-01-2024 Episodic Other complications of (12 sources) Anxiety in 08-04-2021 Episodic Other complications of (12 sources) Multigravida of advanced maternal age 0908-04-2021 Episodic Other non-traumatic joint disorders (1 source) Acute ankle pain; Translations: [Pain in right ankle and joints of right foot] 02-07-2024 Episodic Other nutritional; endocrine; and metabolic disorders (12 sources) Obesity 08-04-2021 Chronic Other and delivery including normal (20 sources) ; Translations: [Delivery normal] Onset: 06-19-2021 08-04-2021 Episodic Other upper respiratory infections (1 source) Chronic sinusitis, unspecified; Translations: [Rhinosinusitis] Onset: 09-17-2025 Chronic Other upper respiratory infections (4 sources) Sore throat symptom; Translations: [Acute pharyngitis, unspecified] Onset: 09-07-2023 Episodic Regional enteritis and ulcerative colitis (1 source) Terminal ileitis; Translations: [Crohn's disease of small intestine without complications] Chronic Residual codes; unclassified (1 source) Other specified personal risk factors, not elsewhere classified; Translations: [Other specified personal history presenting hazards to health] Episodic Sprains and strains (1 source) Injury of wrist; Translations: [Strain of unspecified muscle, fascia and tendon at wrist and hand level, right hand, initial encounter] Episodic Results Test Name Value Interpretation Reference Range Facility OV 07-25-2025 [facility] Office Visit ([facility]) ANDRESSA WEEMS ([id number]) 1985 F Date Time Provider Department 07/25/25 7:30 PM SEGUN MARSHALL During your visit today, we recorded the following information about you: Temperature Pulse Respiration Blood pressure 96.9 degrees 75/minute 18/minute 119/87 Weight 93.8 kg Segun Marshall APRN.CNP 07/25/2025 7:28 PM Signed [facility] Andressa Weems is a 39 year old female. Patient presents with: Pain, Sinus: Sinus pain and pressure, cough x8 days HPI The patient is a 39-year-old female with a history of Meniere's disease and anxiety, presenting with sinus pressure x8 days. Sinus Pressure: - Sinus pressure x8 days. - Associated eye pain and ear pressure. - Denies fever; reports chills. - Using eozv-kju-xutdfwf sinus medication. Meniere's Disease: - History of Meniere's disease; uncertain if current ear pressure is related. Anxiety: - Prescribed medication for anxiety; has not taken it for approximately 3 weeks, stating she has been "doing good without it." Allergies: - Allergic to Cipro. No past medical history on file. No past surgical history on file. ALLERGIES Ciprofloxacin MEDICATIONS amoxicillin-clavulanate potassium (AUGMENTIN) 875-125 mg per tablet Take 1 tablet by mouth every 12 hours for 7 days. crutches, aluminum Use as directed. fluconazole (DIFLUCAN) 100 mg tablet Take 1 tablet by mouth once daily. First day take 2 tablets, then one tablet every day until gone. predniSONE (DELTASONE) 10 mg tablet Take 10 mg by mouth as needed. meclizine (ANTIVERT) 25 mg tab Take 1 tablet by mouth three times daily. PNV no.95/ferrous fum/folic ac ( ORAL) Take by mouth. (Patient not taking: Reported on 09/05/2023) amitriptyline (ELAVIL) 25 mg tablet Take 25 mg by mouth daily at bedtime. (Patient not taking: Reported on 12/31/2021 ) ibuprofen (MOTRIN) 600 mg tablet Take 1 tablet by mouth every 8 hours as needed for Pain. (Patient not taking: Reported on 11/21/2019 ) NORGESTIMATE-ETHINYL ESTRADIOL (SPRINTEC, 28, ORAL) Take by mouth. (Patient not taking: Reported on 12/31/2021 ) No family history on file. SOCIAL HISTORY[1] Review of Systems Constitutional: (+) chills, (-) fever Eyes: (+) eye pain Ears/Nose/Mouth/Throat: (+) sinus pressure, (+) ear fullness Objective BP 119/87 Pulse 75 Temp 36.1 ?C (96.9 ?F) Resp 18 Wt 93.8 kg (206 lb 12.7 oz) LMP 02/03/2024 (Exact Date) SpO2 96% No Physical Exam Vitals and nursing note reviewed. Constitutional: General: She is not in acute distress. Appearance: Normal appearance. She is normal weight. She is not ill-appearing, toxic-appearing or diaphoretic. HENT: Head: Normocephalic and atraumatic. Comments: +maxillary sinus pressure Bilaterally Right Ear: Ear canal and external ear normal. Left Ear: Ear canal and external ear normal. Nose: Nose normal. No congestion or rhinorrhea. Mouth/Throat: Mouth: Mucous membranes are moist. Pharynx: Posterior oropharyngeal erythema present. No oropharyngeal exudate. Eyes: General: Right eye: No discharge. Left eye: No discharge. Extraocular Movements: Extraocular movements intact. Conjunctiva/sclera: Conjunctivae normal. Pupils: Pupils are equal, round, and reactive to light. Cardiovascular: Rate and Rhythm: Normal rate and regular rhythm. Pulses: Normal pulses. Heart sounds: Normal heart sounds. No murmur heard. No friction rub. Pulmonary: Effort: Pulmonary effort is normal. No respiratory distress. Breath sounds: Normal breath sounds. No stridor. No wheezing, rhonchi or rales. Chest: Chest wall: No tenderness. Abdominal: General: Abdomen is flat. There is no distension. Palpations: Abdomen is soft. There is no mass. Tenderness: There is no abdominal tenderness. There is no right CVA tenderness, left CVA tenderness, guarding or rebound. Hernia: No hernia is present. Musculoskeletal: General: No swelling, tenderness, deformity or signs of injury. Normal range of motion. Cervical back: Normal range of motion and neck supple. No rigidity. Right lower leg: No edema. Left lower leg: No edema. Lymphadenopathy: Cervical: Cervical adenopathy present. Skin: General: Skin is warm and dry. Coloration: Skin is not jaundiced or pale. Findings: No bruising, erythema, lesion or rash. Neurological: General: No focal deficit present. Mental Status: She is alert and oriented to person, place, and time. Cranial Nerves: No cranial nerve deficit. Sensory: No sensory deficit. Motor: No weakness. Coordination: Coordination normal. Gait: Gait normal. Psychiatric: Mood and Affect: Mood normal. Behavior: Behavior normal. Thought Content: Thought content normal. Judgment: Judgment normal. {ASSESSMENT/PLAN: 1. Rhinosinusitis - ICD9: 473.9, ICD10: J32.9 - (more content not included)... Normal [facility] XR Ankle - right AP and Late ral and obliqueon 02-07-2024 IMPRESSION: No acute osseous abnormality Sausage Stuffer: NIKI Transcribe Date/Time: Feb 07 2024 11:26A Dictated by : YAQUELIN COLLADO MD This examination was interpreted and the report reviewed and electronically signed by: YAQUELIN COLLADO MD on Feb 07 2024 11:28AM [facility] DIVISION OF RADIOLOGY * * *Final Report* * * DATE OF EXAM: Feb 07 2024 11:12AM WOX [id number] - XR ANKLE 3V AP/LAT/OBL RT / PROCEDURE REASON: Acute right ankle pain * * * * Physician Interpretation * * * * EXAMINATION: XR ANKLE 3V AP/LAT/OBL RT CLINICAL HISTORY: Right lateral ankle pain for 2 days Technique: XR ANKLE 3V AP/LAT/OBL RT -- RIGHT with 3 views on 3 images Comparison: None RESULT: No acute fracture or dislocation. Joint spaces are maintained. DIVISION OF RADIOLOGY Provider, Juju Radford [facility] - 02/07/2024 * * *Final Report* * * DATE OF EXAM: Feb 07 2024 11:12AM WOX [id number] - XR ANKLE 3V AP/LAT/OBL RT / PROCEDURE REASON: Acute right ankle pain * * * * Physician Interpretation * * * * EXAMINATION: XR ANKLE 3V AP/LAT/OBL RT CLINICAL HISTORY: Right lateral ankle pain for 2 days Technique: XR ANKLE 3V AP/LAT/OBL RT -- RIGHT with 3 views on 3 images Comparison: None RESULT: No acute fracture or dislocation. Joint spaces are maintained. IMPRESSION IMPRESSION: No acute osseous abnormality Sausage Stuffer: PSCB Transcribe Date/Time: Feb 07 2024 11:26A Dictated by : YAQUELIN COLLADO MD This examination was interpreted and the report reviewed and electronically signed by: YAQUELIN COLLADO MD on Feb 07 2024 11:28AM EST [facility] Radiology Study observation (narrative) [facility] XR Ankle - right AP and Late ral and obliqueOrdered By: [facility] Provider on 02-07-2024 [facility] RESCVIDon 09-07-2023 Adenovirus Not detected Normal Not Detected [facility] ([place]) Comment on above: Performed By: #### R ESCVID #### [facility] [address] [place] [id number] Bordetella Parapertussis Not detected Normal Not Detected [facility] ([place]) Comment on above: Performed By: #### R ESCVID #### [facility] [address] [place] [id number] Bordetella Pertussis Not detected Normal Not Detected [facility] ([place] Comment on above: Performed By: #### R ESCVID #### [facility] [address] [place] [id number] Chlamydophila pneumoniae Not detected Normal Not Detected [facility] ([place] Comment on above: Performed By: #### R ESCVID #### [facility] [address] [place], [place] [id number] Coronavirus 229E (Not COVID-19) Not detected Normal Not Detected [facility] ([place] Comment on above: Performed By: #### R ESCVID #### [place] [address] Coronavirus HKU1 (Not COVID-19) Not detected Normal Not Detected [facility] ([place] Comment on above: Performed By: #### R ESCVID #### [place] [address] Coronavirus NL63 (Not COVID-19) Not detected Normal Not Detected [facility] ([place] Comment on above: Performed By: #### R ESCVID #### [place] [address] Coronavirus OC43 (Not COVID-19) Not detected Normal Not Detected [facility] ([place] Comment on above: Performed By: #### R ESCVID #### [place] [address] Human Metapneumovirus Not detected Normal Not Detected [facility] ([place] Comment on above: Performed By: #### R ESCVID #### [place] [id number] Influenza A Not detected Normal Not Detected [facility] ([place] Comment on above: Performed By: #### R ESCVID #### [facility] [address] [place], [place] [id number] Influenza B Not detected Normal Not Detected [facility] ([place] Comment on above: Performed By: #### R ESCVID #### [facility] [address] [place] [id number] Mycoplasma pneumoniae Not detected Normal Not Detected [facility] ([place] Comment on above: Performed By: #### R ESCVID #### [place] [id number] Parainfluenza 1 Not detected Normal Not Detected [facility] ([place]) Comment on above: Performed By: #### R ESCVID #### [place] [id number] [address] [place] [address] Parainfluenza 2 Not detected Normal Not Detected [facility] ([place]) Comment on above: Performed By: #### R ESCVID #### [facility] [address] [place] [id number] Parainfluenza 3 Not detected Normal Not Detected [facility] ([place] Comment on above: Performed By: #### R ESCVID #### [facility] [address] [place] [address] Parainfluenza 4 Detected Abnormal Not Detected [facility] ([place] Comment on above: Performed By: #### R ESCVID #### [address] [address] Respiratory Syncytial Virus Not detected Normal Not Detected [facility] ([place] Comment on above: Performed By: #### R ESCVID #### [facility] [address] [place], [place] [id number] Rhinovirus/Enteroviru s Not detected Normal Not Detected [facility] ([place] Comment on above: Performed By: #### R ESCVID #### [place] [id number] SARS-CoV-2 (COVID-19) RNA MARITO+probe Ql (Unsp spec) Not detected Normal Not Detected [facility] ([place] Comment on above: Result Comment: This test is being used under the FDA EUA procedure. This assay has been validated in the [facility] for use with nasopharyngeal specimens in [facility]. If a non-validated specimen or test collection method was used, please interpret the results with caution, especially if the test result is negative. A positive test result for COVID-19 indicates that RNA from SARS-CoV-2 was detected, and the patient is infected with the virus and presumed to be contagious. Laboratory test results should always be considered in the context of clinical observations and epidemiological data in making a final diagnosis and patient management decisions. Patient management should follow current CDC guidelines. A negative test result for this test means that SARS-CoV-2 RNA was not present in the specimen above the limit of detection. However, a negative result does not rule out COVID-19 and should not be used as the sole basis for treatment or patient management decisions. A negative result does not exclude the possibility of COVID-19. When diagnostic testing is negative, the possibility of a false negative result should be considered in the context of a patient's recent exposures and the presence of clinical signs and symptoms consistent with COVID-19. The possibility of a false negative result should especially be considered if the patient?s recent exposures or clinical presentation indicate that COVID-19 is likely, and diagnostic tests for other causes of illness (e.g., other respiratory illness) are negative. If COVID-19 is still suspected based on exposure history together with other clinical findings, re-testing should be considered by healthcare providers in consultation with public health authorities. Performed By: #### R ESCVID #### [place] [address] XR CHEST 2 VIEWSon 3 XR CHEST 2 VIEWS ORIGINAL EXAMINATION: TWO XRAY VIEWS OF THE CHEST 09/07/2023 12:40 am COMPARISON: Chest x-ray 02/10/2023. HISTORY: ORDERING SYSTEM PROVIDED HISTORY: Reason for Exam: Shortness of breath FINDINGS: Cardiomediastinal silhouette is within normal limits. No consolidation, pleural effusion, vascular congestion or pneumothorax. No acute osseous abnormality. IMPRESSION: No acute radiographic process. This is a preliminary report created by a resident Interpreted by: Willie Erwin MD Preliminary Report By: Nat Ambrocio Electronically signed By Willie Erwin MD Dictated Date: 09/07/2023 12:43:46 AM Prelim Date: 09/07/2023 12:47:19 AM Sign Date: 09/07/2023 2:03:11 AM Ordering Provider: AURORA Price [facility] ([place]) LABORATORYOrdered By: Wilma Sosa on 09-06-2023 Adenovirus DNA MARITO+non-probe Ql (Nph) Not Detected *NA* (09/06/23 11:56 PM) Invalid Interpretation Code Not Detected AH Auto Viro/Sero SS B. parapertussis [id number] DNA MARITO+non-probe Ql (Nph) Not Detected *NA* (09/06/23 11:56 PM) Invalid Interpretation Code Not Detected AH Auto Viro/Sero SS B. pertussis toxin promoter region MARITO+non-probe Ql (Nph) Not Detected *NA* (09/06/23 11:56 PM) Invalid Interpretation Code Not Detected AH Auto Viro/Sero SS C. pneumoniae DNA MARITO+non-probe Ql (Nph) Not Detected *NA* (09/06/23 11:56 PM) Invalid Interpretation Code Not Detected AH Auto Viro/Sero SS FLUAV RNA MARITO+non-probe Ql (Nph) Not Detected *NA* (09/06/23 11:56 PM) Invalid Interpretation Code Not Detected AH Auto Viro/Sero SS FLUBV RNA MARITO+non-probe Ql (Nph) Not Detected *NA* (09/06/23 11:56 PM) Invalid Interpretation Code Not Detected AH Auto Viro/Sero SS hMPV RNA MARITO+non-probe Ql (Nph) Not Detected *NA* (09/06/23 11:56 PM) Invalid Interpretation Code Not Detected AH Auto Viro/Sero SS M. pneumoniae DNA MARITO+non-probe Ql (Nph) Not Detected *NA* (09/06/23 11:56 PM) Invalid Interpretation Code Not Detected AH Auto Viro/Sero SS Parainfluenza virus 1 RNA MARITO+non-probe Ql (Nph) Not Detected *NA* (09/06/23 11:56 PM) Invalid Interpretation Code Not Detected AH Auto Viro/Sero SS Parainfluenza virus 2 RNA MARITO+non-probe Ql (Nph) Not Detected *NA* (09/06/23 11:56 PM) Invalid Interpretation Code Not Detected AH Auto Viro/Sero SS Parainfluenza virus 3 RNA MARITO+non-probe Ql (Nph) Not Detected *NA* (09/06/23 11:56 PM) Invalid Interpretation Code Not Detected AH Auto Viro/Sero SS Parainfluenza virus 4 RNA MARITO+non-probe Ql (Nph) Detected *ABN* (09/06/23 11:56 PM) Invalid Interpretation Code Not Detected AH Auto Viro/Sero SS Rhinovirus+Enteroviru s RNA MARITO+non-probe Ql (Nph) Not Detected *NA* (09/06/23 11:56 PM) Invalid Interpretation Code Not Detected AH Auto Viro/Sero SS RSV RNA MARITO+non-probe Ql (Nph) Not Detected *NA* (09/06/23 11:56 PM) Invalid Interpretation Code Not Detected AH Auto Viro/Sero SS SARS-CoV-2 (COVID-19) RNA MARITO+probe Ql (Resp) Not Detected 1 *NA* (09/06/23 11:56 PM) Invalid Interpretation Code Not Detected AH Auto Viro/Sero SS Comment on above: Interpretive Data: T his test is being used under the FDA EUA procedure. This assay has been validated in the [facility] for use with nasopharyngeal specimens in [facility]. If a non-validated specimen or test collection method was used, please interpret the results with caution, especially if the test result is negative. A positive test result for COVID-19 indicates that RNA from SARS-CoV-2 was detected, and the patient is infected with the virus and presumed to be contagious. Laboratory test results should always be considered in the context of clinical observations and epidemiological data in making a final diagnosis and patient management decisions. Patient management should follow current CDC guidelines. A negative test result for this test means that SARS-CoV-2 RNA was not present in the specimen above the limit of detection. However, a negative result does not rule out COVID-19 and should not be used as the sole basis for treatment or patient management decisions. A negative result does not exclude the possibility of COVID-19. When diagnostic testing is negative, the possibility of a false negative result should be considered in the context of a patient's recent exposures and the presence of clinical signs and symptoms consistent with COVID-19. The possibility of a false negative result should especially be considered if the patient s recent exposures or clinical presentation indicate that COVID-19 is likely, and diagnostic tests for other causes of illness (e.g., other respiratory illness) are negative. If COVID-19 is still suspected based on exposure history together with other clinical findings, re-testing should be considered by healthcare providers in consultation with public health authorities. STREP A MOLECULAR (POC)on Procedural Control Valid [facility] Strep A (POCT) Negative Negative [facility] XR CHEST 1 VIEWon 02-10-2023 XR CHEST 1 VIEW ORIGINAL EXAMINATION: ONE XRAY VIEW OF THE CHEST 02/09/2023 11:49 pm COMPARISON: None. HISTORY: ORDERING SYSTEM PROVIDED HISTORY: Reason for Exam: fever, cough FINDINGS: The heart size and mediastinal contours are normal. There is patchy airspace disease in the left mid and lower lung zone. No right lung infiltrate is visible. There is no pleural fluid or pneumothorax. The skeletal structures are unremarkable. IMPRESSION: Left lung airspace disease consistent with pneumonia Interpreted by: Cruz Oconnor MD Preliminary Report By: Cruz Oconnor MD Electronically signed By Cruz Oconnor MD Dictated Date: 02/09/2023 11:50:49 PM Prelim Date: 02/09/2023 11:53:07 PM Sign Date: 02/09/2023 11:53:07 PM Ordering Provider: [facility] STREP A MOLECULAR (POC)on Procedural Control Valid [facility] Strep A (POCT) Negative Negative [facility] STREP A MOLECULAR (POC)on Procedural Control Valid [facility] Strep A (POCT) Negative Negative [facility] LABORATORYOrdered By: Kathe Blackmon on 03-31-2022 Hematocrit (Bld) [Volume fraction] 34.9 % Invalid Interpretation Code 37.0 - 47.0 % AO Auto Heme SS Hemoglobin (Bld) [Mass/Vol] 11.9 G/dL Invalid Interpretation Code 12.0 - 16.0 G/dL AO Auto Heme SS LABORATORYOrdered By: Jacinda Rodríguez on 03-29-2022 ABO/Rh Interp Positive Invalid Interpretation Code AO BB SS Antibody Screen Gel Negative ABSC (03/29/22 11:16 PM) Invalid Interpretation Code AO BB SS Basophil, Absolute 0.00 103/mcL Invalid Interpretation Code 0.00 - 0.19 10^3/mcL AO Auto Heme SS Basophils/100 WBC (Bld) 0.2 % Invalid Interpretation Code 0.0 - 2.5 % AO Auto Heme SS Eosinophil, Absolute 0.10 103/mcL Invalid Interpretation Code 0.00 - 0.40 10^3/mcL AO Auto Heme SS Eosinophils/100 WBC (Bld) 0.6 % Invalid Interpretation Code 0.0 - 7.0 % AO Auto Heme SS Erythrocyte distribution width (RBC) [Ratio] 13.5 % Invalid Interpretation Code 11.5 - 14.5 % AO Auto Heme SS Hematocrit (Bld) [Volume fraction] 35.9 % Invalid Interpretation Code 37.0 - 47.0 % AO Auto Heme SS Hemoglobin (Bld) [Mass/Vol] 12.3 G/dL Invalid Interpretation Code 12.0 - 16.0 G/dL AO Auto Heme SS Lymphocyte, Absolute 1.90 103/mcL Invalid Interpretation Code 0.77 - 3.85 10^3/mcL AO Auto Heme SS Lymphocytes/100 WBC (Bld) 19.4 % Invalid Interpretation Code 10.0 - 50.0 % AO Auto Heme SS MCH (RBC) [Entitic mass] 29.6 pg Invalid Interpretation Code 27.0 - 31.2 pg AO Auto Heme SS MCHC (RBC) [Mass/Vol] 34.3 G/dL Invalid Interpretation Code 33.0 - 37.0 G/dL AO Auto Heme SS MCV (RBC) [Entitic vol] 86.2 fL Invalid Interpretation Code 80.0 - 94.0 fL AO Auto Heme SS Monocyte, Absolute 0.50 103/mcL Invalid Interpretation Code 0.15 - 1.00 10^3/mcL AO Auto Heme SS Monocytes/100 WBC (Bld) 5.6 % Invalid Interpretation Code 1.7 - 13.0 % AO Auto Heme SS Neutrophil, Absolute 7.20 103/mcL Invalid Interpretation Code 2.85 - 6.16 10^3/mcL AO Auto Heme SS Neutrophils/100 WBC (Bld) 74.2 % Invalid Interpretation Code 37.0 - 80.0 % AO Auto Heme SS Platelet mean volume (Bld) [Entitic vol] 10.5 fL Invalid Interpretation Code 7.4 - 10.4 fL AO Auto Heme SS Platelets (Bld) [#/Vol] 140 103/mcL Invalid Interpretation Code 130 - 400 10^3/mcL AO Auto Heme SS RBC (Bld) [#/Vol] 4.16 106/mcL Invalid Interpretation Code 4.20 - 5.40 10^6/mcL AO Auto Heme SS WBC (Bld) [#/Vol] 9.70 103/mcL Invalid Interpretation Code 4.60 - 10.80 10^3/mcL AO Auto Heme SS LABORATORYOrdered By: Melania Ford on 03-29-2022 Reagin Ab RPR Ql (S) Non-Reactive (03/29/22 11:16 PM) Invalid Interpretation Code Non-Reactive AH Man Viro/Sero SS LABORATORYOrdered By: Melania Ford on 02-26-2022 C. trachomatis DNA MARITO+probe Ql (Unsp spec) Negative (02/26/22 8:55 AM) Invalid Interpretation Code Negative AH Auto Viro/Sero SS C. trachomatis Interp C. trachomatis DNA not detected. Specimen is presumptive negative forC. trachomatis.A negative result does not preclude C. trachomatis infection becauseresults depend on adequate specimen collection, absence of inhibitors,and sufficient DNA to be detected. Invalid Interpretation Code See CT Interp N AH Auto Viro/Sero SS N. gonorrhoeae DNA MARITO+probe Ql (Unsp spec) Negative (02/26/22 8:55 AM) Invalid Interpretation Code Negative AH Auto Viro/Sero SS N. gonorrhoeae Interp N. gonorrhoeae DNA not detected. Specimen is presumptive negative forN. gonorrhoeae. A negative result does not preclude Neisseria gonorrhoeaeinfection because results depend on adequate specimen collection, absenceof inhibitors, and sufficient DNA to be detected. Invalid Interpretation Code See NG Interp N AH Auto Viro/Sero SS LABORATORYOrdered By: Ivan Borjas on 02-26-2022 Group B Strep PCR Int Group B Streptococ cus DNA not detected by Real-Time Polymerase Chain Reaction (PCR). A negative result does rule out the possibility of Group B Streptococcus. False Negative results may occur when Group B Streptococcus concentration is below the level of detection. If the patient has signs or symptoms of infection, other laboratory tests and clinical information should be used to confirm the negative result. This test is not intended to differentiate carriers of Group B Streptococcus from those with Streptococcus disease. Invalid Interpretation Code AH Auto Viro/Sero SS S. agalactiae DNA MARITO+probe Ql (Unsp spec) Negative 1 (02/26/22 8:55 AM) Invalid Interpretation Code Negative AH Auto Viro/Sero SS Comment on above: Result Comment: Note s 1990 Laboratory - Specimen inform ationOrdered By: Melania Ford on 02-26-2022 Specimen source Nom (Unsp spec) Genital Female (02/26/22 8:55 AM) Invalid Interpretation Code AH Auto Viro/Sero SS LABORATORYOrdered By: Jacinda Rodríguez on 12-31-2021 Basophil, Absolute 0.00 103/mcL Invalid Interpretation Code 0.00 - 0.19 10^3/mcL AO Auto Heme SS Basophils/100 WBC (Bld) 0.1 % Invalid Interpretation Code 0.0 - 2.5 % AO Auto Heme SS Eosinophil, Absolute 0.10 103/mcL Invalid Interpretation Code 0.00 - 0.40 10^3/mcL AO Auto Heme SS Eosinophils/100 WBC (Bld) 0.6 % Invalid Interpretation Code 0.0 - 7.0 % AO Auto Heme SS Erythrocyte distribution width (RBC) [Ratio] 13.2 % Invalid Interpretation Code 11.5 - 14.5 % AO Auto Heme SS Hematocrit (Bld) [Volume fraction] 37.5 % Invalid Interpretation Code 37.0 - 47.0 % AO Auto Heme SS Hemoglobin (Bld) [Mass/Vol] 12.7 G/dL Invalid Interpretation Code 12.0 - 16.0 G/dL AO Auto Heme SS Lymphocyte, Absolute 1.90 103/mcL Invalid Interpretation Code 0.77 - 3.85 10^3/mcL AO Auto Heme SS Lymphocytes/100 WBC (Bld) 22.3 % Invalid Interpretation Code 10.0 - 50.0 % AO Auto Heme SS MCH (RBC) [Entitic mass] 30.5 pg Invalid Interpretation Code 27.0 - 31.2 pg AO Auto Heme SS MCHC (RBC) [Mass/Vol] 33.8 G/dL Invalid Interpretation Code 33.0 - 37.0 G/dL AO Auto Heme SS MCV (RBC) [Entitic vol] 90.1 fL Invalid Interpretation Code 80.0 - 94.0 fL AO Auto Heme SS Monocyte, Absolute 0.30 103/mcL Invalid Interpretation Code 0.15 - 1.00 10^3/mcL AO Auto Heme SS Monocytes/100 WBC (Bld) 4.1 % Invalid Interpretation Code 1.7 - 13.0 % AO Auto Heme SS Neutrophil, Absolute 6.30 103/mcL Invalid Interpretation Code 2.85 - 6.16 10^3/mcL AO Auto Heme SS Neutrophils/100 WBC (Bld) 72.9 % Invalid Interpretation Code 37.0 - 80.0 % AO Auto Heme SS Platelet mean volume (Bld) [Entitic vol] 10.0 fL Invalid Interpretation Code 7.4 - 10.4 fL AO Auto Heme SS Platelets (Bld) [#/Vol] 212 103/mcL Invalid Interpretation Code 130 - 400 10^3/mcL AO Auto Heme SS RBC (Bld) [#/Vol] 4.16 106/mcL Invalid Interpretation Code 4.20 - 5.40 10^6/mcL AO Auto Heme SS WBC (Bld) [#/Vol] 8.60 103/mcL Invalid Interpretation Code 4.60 - 10.80 10^3/mcL AO Auto Heme SS LABORATORYOrdered By: Kathe Blackmon on 12-31-2021 Glucose [Mass/Vol] 177 mg/dL Invalid Interpretation Code 70 - 140 mg/dL AO ADM SS LABORATORYOrdered By: Paulina montejo on 09-01-2021 C. trachomatis DNA MARITO+probe Ql (Unsp spec) Negative (09/01/21 8:44 AM) Invalid Interpretation Code Negative AH Auto Viro/Sero SS C. trachomatis Interp C. trachomatis DNA not detected. Specimen is presumptive negative forC. trachomatis.A negative result does not preclude C. trachomatis infection becauseresults depend on adequate specimen collection, absence of inhibitors,and sufficient DNA to be detected. Invalid Interpretation Code See CT Interp N AH Auto Viro/Sero SS N. gonorrhoeae DNA MARITO+probe Ql (Unsp spec) Negative (09/01/21 8:44 AM) Invalid Interpretation Code Negative AH Auto Viro/Sero SS N. gonorrhoeae Interp N. gonorrhoeae DNA not detected. Specimen is presumptive negative forN. gonorrhoeae. A negative result does not preclude Neisseria gonorrhoeaeinfection because results depend on adequate specimen collection, absenceof inhibitors, and sufficient DNA to be detected. Invalid Interpretation Code See NG Interp N AH Auto Viro/Sero SS Laboratory - Specimen inform ationOrdered By: Paulina Dietrich on 09-01-2021 Specimen source Nom (Unsp spec) Urine (09/01/21 8:44 AM) Invalid Interpretation Code AH Auto Viro/Sero SS Vital Signs Date Time Vital Sign Value Performing Clinician Facility 02-01-2024 11:53-0400 Body temperature 98.1 [degF] Beba Han APRN.DOCK GRADER Work Phone: [facility] 02-01-2024 11:53-0400 Body weight 87.5 kg Beba Han APRN.CNP Work Phone: [facility] 02-01-2024 11:53-0400 Diastolic blood pressure 78 mm[Hg] Beba Praisler-Wood 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 Work Phone: [facility] 02-01-2024 11:53-0400 Heart rate 91 /min Beba Praisler-Wood 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 Work Phone: [facility] 02-01-2024 11:53-0400 Respiratory rate 18 /min Beba Praisler-Wood 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 Work Phone: [facility] 02-01-2024 11:53-0400 SaO2% (BldA) [Mass fraction] 98 % Beba Praisler-Wood 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 Work Phone: [facility] 02-01-2024 11:53-0400 Systolic blood pressure 118 mm[Hg] Beba Praisler-Wood 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 Work Phone: [facility] 09-14-2023 23:34-0500 Blood Pressure Location HEIDY CORMIER MD [facility] 09-14-2023 23:34-0500 Blood Pressure Method HEIDY CORMIER MD [facility] 09-14-2023 23:34-0500 Diastolic Blood Pressure Non-Invasive 91 1 HEIDY CORMIER MD [facility] 09-14-2023 23:34-0500 Heart rate 68 /min HEIDY CORMIER MD [facility] 09-14-2023 23:34-0500 Reason For Taking VItal Signs HEIDY CORMIER MD [facility] 09-14-2023 23:34-0500 Respiratory rate 16 /min HEIDY CORMIER MD [facility] 09-14-2023 23:34-0500 Systolic Blood Pressure Non-Invasive 105 1 HEIYD CORMIER MD [facility] 09-14-2023 22:11-0500 Blood Pressure Location HEIDY CORMIER MD [facility] 09-14-2023 22:11-0500 Blood Pressure Method HEIDY CORMIER MD [facility] 09-14-2023 22:11-0500 Body height 165.1 cm HEIDY CORMIER MD [facility] 09-14-2023 22:11-0500 Body temperature 98.6 [degF] HEIDY CORMIER MD [facility] 09-14-2023 22:11-0500 Body weight 88.5 kg HEIDY CORMIER MD [facility] 09-14-2023 22:11-0500 Diastolic Blood Pressure Non-Invasive 84 1 HEIDY CORMIER MD [facility] 09-14-2023 22:11-0500 Heart rate 80 /min HEIDY CORMIER MD [facility] 09-14-2023 22:11-0500 Respiratory rate 16 /min HEIDY CORMIER MD [facility] 09-14-2023 22:11-0500 Systolic Blood Pressure Non-Invasive 126 1 HEIDY CORMIER MD [facility] 09-07-2023 01:06-0400 Diastolic Blood Pressure Non-Invasive [address] AURORA MONTIEL MD [facility] 09-07-2023 01:06-0400 Heart rate 82 /min DR AURORA MONTIEL MD [facility] 09-07-2023 01:06-0400 Respiratory rate 18 /min DR AURORA MONTIEL MD [facility] 09-07-2023 01:06-0400 Systolic Blood Pressure Non-Invasive [address] AURORA MONTIEL MD [facility] 09-07-2023 00:09-0400 Heart rate 88 /min DR AURORA MONTIEL MD [facility] 09-07-2023 00:09-0400 Respiratory rate 20 /min DR AURORA MONTIEL MD [facility] 09-06-2023 23:47-0400 Body height 165.[address] AURORA MONTIEL MD [facility] 09-06-2023 23:47-0400 Body temperature 98.78 [degF] DR AURORA MONTIEL MD [facility] 09-06-2023 23:47-0400 Body weight 87.[address] AURORA MONTIEL MD [facility] 09-06-2023 23:47-0400 Diastolic Blood Pressure Non-Invasive [address] AURORA MONTIEL MD [facility] 09-06-2023 23:47-0400 Heart rate 85 /min DR AURORA MONTIEL MD [facility] 09-06-2023 23:47-0400 Respiratory rate 18 /min DR AURORA MONTIEL MD [facility] 09-06-2023 23:47-0400 Systolic Blood Pressure Non-Invasive [address] AURORA MONTIEL MD [facility] 09-05-2023 14:15-0400 Body temperature 98.8 [degF] Segun Marshall 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 Work Phone: [facility] 09-05-2023 14:15-0400 Body weight 87.09 kg Segun Marshall 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 Work Phone: [facility] 09-05-2023 14:15-0400 Diastolic blood pressure 78 mm[Hg] Segun Marshall 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 Work Phone: [facility] 09-05-2023 14:15-0400 Heart rate 83 /min Segun Marsahll 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 Work Phone: [facility] 09-05-2023 14:15-0400 Respiratory rate 21 /min Segun Marshall 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 Work Phone: [facility] 09-05-2023 14:15-0400 SaO2% (BldA) [Mass fraction] 98 % Segun Marshall 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 Work Phone: [facility] 09-05-2023 14:15-0400 Systolic blood pressure 104 mm[Hg] Segun Marshall 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 Work Phone: [facility] 01-31-2023 13:25-0400 Body temperature 97.5 [degF] Manuel Pendlebury 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 Work Phone: [facility] 01-31-2023 13:25-0400 Body weight 81.65 kg Manuel Pendlebury 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 Work Phone: [facility] 01-31-2023 13:25-0400 Diastolic blood pressure 64 mm[Hg] Manuel Pendlebury 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 Work Phone: [facility] 01-31-2023 13:25-0400 Heart rate 86 /min Manuel Pendlebury 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 Work Phone: [facility] 01-31-2023 13:25-0400 Respiratory rate 16 /min Manuel Pendlebury 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 Work Phone: [facility] 01-31-2023 13:25-0400 SaO2% (BldA) [Mass fraction] 98 % Manuel Jimenez 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 Work Phone: [facility] 01-31-2023 13:25-0400 Systolic blood pressure 122 mm[Hg] Manuel Jimenez 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 Work Phone: [facility] 01-13-2023 19:01-0500 Body temperature 97.81 [degF] Segun Marshall 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 Work Phone: [facility] 01-13-2023 19:01-0500 Body weight 86.55 kg Segun Marshall 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 Work Phone: [facility] 01-13-2023 19:01-0500 Diastolic blood pressure 72 mm[Hg] Segun Marshall 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 Work Phone: [facility] 01-13-2023 19:01-0500 Heart rate 79 /min Segun Marshall 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 Work Phone: [facility] 01-13-2023 19:01-0500 Respiratory rate 21 /min Segun Marshall 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 Work Phone: [facility] 01-13-2023 19:01-0500 SaO2% (BldA) [Mass fraction] 98 % Segun Marshall 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 Work Phone: [facility] 01-13-2023 19:01-0500 Systolic blood pressure 122 mm[Hg] Segun Marshall 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 Work Phone: [facility] 07-13-2022 10:41-0400 Body temperature 98.71 [degF] Rhonda Montoya 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 Work Phone: [facility] 07-13-2022 10:41-0400 Body weight 81.19 kg Rhonda Montoya 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 Work Phone: [facility] 07-13-2022 10:41-0400 Diastolic blood pressure 70 mm[Hg] Rhonda Montoya 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 Work Phone: [facility] 07-13-2022 10:41-0400 Heart rate 118 /min Rhonda Montoya APRN.DOCK GRADER Work Phone: [facility] 07-13-2022 10:41-0400 Respiratory rate 18 /min Rhondanaga Montoya APRN.DOCK GRADER Work Phone: [facility] 07-13-2022 10:41-0400 SaO2% (BldA) [Mass fraction] 98 % Rhonda Montoya APRN.DOCK GRADER Work Phone: [facility] 07-13-2022 10:41-0400 Systolic blood pressure 122 mm[Hg] Rhondanaga Montoya APRN.DOCK GRADER Work Phone: [facility] 03-31-2022 00:30-0400 Body temperature 97.7 [degF] CAROLINA RAZA MD [facility] 03-31-2022 00:30-0400 Diastolic blood pressure 70 mm[Hg] CAROLINA RAZA MD [facility] 03-31-2022 00:30-0400 Heart rate 73 /min CAROLINA RAZA MD [facility] 03-31-2022 00:30-0400 Respiratory rate 18 /min CAROLINA RAZA MD [facility] 03-31-2022 00:30-0400 Systolic blood pressure 117 mm[Hg] CAROLINA RAZA MD [facility] 03-30-2022 18:02-0400 Body temperature 96.8 [degF] CAROLINA RAZA MD [facility] 03-30-2022 18:02-0400 Diastolic blood pressure 66 mm[Hg] CAROLINA RAZA MD [facility] 03-30-2022 18:02-0400 Heart rate 80 /min CAROLINA RAZA MD [facility] 03-30-2022 18:02-0400 Mean blood pressure 83 mm[Hg] CAROLINA RAZA MD [facility] 03-30-2022 18:02-0400 Respiratory rate 18 /min CAROLINA RAZA MD [facility] 03-30-2022 18:02-0400 Systolic blood pressure 116 mm[Hg] CAROLINA RAZA MD [facility] 03-30-2022 07:45-0400 Diastolic blood pressure 73 mm[Hg] CAROLINA RAZA MD [facility] 03-30-2022 07:45-0400 Heart rate 66 /min CAROLINA RAZA MD [facility] 03-30-2022 07:45-0400 Mean blood pressure 85 mm[Hg] CAROLINA RAZA MD [facility] 03-30-2022 07:45-0400 Respiratory rate 16 /min CAROLINA RAZA MD [facility] 03-30-2022 07:45-0400 Systolic blood pressure 109 mm[Hg] CAROLINA RAZA MD [facility] 03-30-2022 07:15-0400 Heart rate 77 /min CAROLINA RAZA MD [facility] 03-30-2022 07:15-0400 Mean blood pressure 76 mm[Hg] CAROLINA RAZA MD [facility] 03-30-2022 04:22-0400 Body temperature 97.7 [degF] CAROLINA RAZA MD [facility] 03-30-2022 00:49-0400 Body temperature 97.88 [degF] CAROLINA RAZA MD [facility] 03-29-2022 22:35-0400 Body height 165.1 cm CAROLINA RAZA MD [facility] 03-29-2022 22:35-0400 Body weight 91.2 kg CAROLINA RAZA MD [facility] 03-29-2022 22:35-0400 Body weight 33.46 kg/m2 CAROLINA RAZA MD [facility] 03-29-2022 22:11-0400 Body temperature 98.06 [degF] CAROLINA RAZA MD [facility] 03-16-2022 16:00-0400 Body temperature 98.06 [degF] OSIEL RUFFIN MD [facility] 03-16-2022 16:00-0400 Diastolic blood pressure 66 mm[Hg] OSIEL RUFFIN MD [facility] 03-16-2022 16:00-0400 Heart rate 76 /min OSIEL RUFFIN MD [facility] 03-16-2022 16:00-0400 Mean blood pressure 77 mm[Hg] OSIEL RUFFIN MD [facility] 03-16-2022 16:00-0400 Respiratory rate 16 /min OSIEL RUFFIN MD [facility] 03-16-2022 16:00-0400 Systolic blood pressure 100 mm[Hg] OSIEL RUFFIN MD [facility] 03-02-2022 16:26-0400 Body temperature 97.88 [degF] CAROLINA RAZA MD [facility] 03-02-2022 16:26-0400 Diastolic blood pressure 57 mm[Hg] CAROLINA RAZA MD [facility] 03-02-2022 16:26-0400 Heart rate 76 /min CAROLINA RAZA MD [facility] 03-02-2022 16:26-0400 Respiratory rate 18 /min CAROLINA RAZA MD [facility] 03-02-2022 16:26-0400 Systolic blood pressure 123 mm[Hg] CAROLINA RAZA MD [facility] 02-23-2022 16:07-0400 Body temperature 97.88 [degF] CAROLINA RAZA MD [facility] 02-23-2022 16:07-0400 Diastolic blood pressure 65 mm[Hg] CAROLINA RAZA MD [facility] 02-23-2022 16:07-0400 Heart rate 90 /min CAROLINA RAZA MD [facility] 02-23-2022 16:07-0400 Mean blood pressure 80 mm[Hg] CAROLINA RAZA MD [facility] 02-23-2022 16:07-0400 Respiratory rate 18 /min CAROLINA RAZA MD [facility] 02-23-2022 16:07-0400 Systolic blood pressure 110 mm[Hg] CAROLINA RAZA MD [facility] 01-02-2022 12:29-0500 Heart rate 74 /min DR SHANNEN MCGEE MD [facility] 01-02-2022 12:29-0500 Respiratory rate 16 /min DR SHANNEN MCGEE MD [facility] 01-02-2022 11:46-0500 Body temperature 98.6 [degF] DR SHANNEN MCGEE MD [facility] 01-02-2022 11:46-0500 Diastolic blood pressure 80 mm[Hg] DR SHANNEN MCGEE MD [facility] 01-02-2022 11:46-0500 Heart rate 98 /min DR SHANNEN MCGEE MD [facility] 01-02-2022 11:46-0500 Respiratory rate 18 /min DR SHANNEN MCGEE MD [facility] 01-02-2022 11:46-0500 Systolic blood pressure 115 mm[Hg] DR SHANNEN MCGEE MD [facility] Encounters Encounter Date Encounter Type Care Provider Facility Start: 07-25-2025 End: 07-25-20[facility] Start: 04-20-2025 End: 04-20-2025 Emergency department patient visit DR JOEL RYAN DO [facility] Start: 02-07-2024 End: 02-07-2024 Subsequent hospital visit by physician [facility]r [facility] Work Phone: Radiology Comment on above: Acute right ankle pa in [M25.571] Start: 02-01-2024 End: 02-01-2024 Patient encounter procedure Beba Han APRN.CNP Work Phone: [facility] Comment on above: Candidiasis of breas t (Primary Dx) Start: 09-15-2023 End: 09-15-2023 Emergency department patient visit HEDIY CORMIER MD Facility:B Start: 09-14-2023 End: 09-15-2023 Emergency department patient visit HEIDY CORMIER MD [facility] Start: 09-07-2023 Telephone encounter Beba Sargent Williams 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 Work Phone: [facility] Comment on above: Results Start: 09-07-2023 End: 09-07-2023 Emergency department patient visit DR AURORA MONTIEL MD Facility:B Start: 09-06-2023 End: 09-07-2023 Emergency department patient visit DR AURORA MONTIEL MD [facility] Start: 09-05-2023 End: 09-05-2023 Patient encounter procedure Segun Marshall 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 Work Phone: [facility] Comment on above: URI, acute (Primary Dx) Start: 02-09-2023 End: 02-10-2023 Emergency department patient visit DR FILI NAM MD Facility:B Start: 01-31-2023 End: 01-31-2023 Office outpatient visit 15 minutes Manuel Jimenez 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 Work Phone: [facility] Comment on above: Sore throat (Primary Dx) Start: 01-13-2023 End: 01-13-2023 Patient encounter procedure Segun Marshall 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 Work Phone: [facility] Comment on above: Conjunctivitis of bacilio th eyes, unspecified conjunctivitis type (Primary Dx) Start: 07-13-2022 End: 07-13-2022 Patient encounter procedure Rhonda Montoya 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 Work Phone: [facility] Comment on above: Sore throat (Primary Dx); At increased risk of exposure to COVID-19 virus Start: 06-22-2022 End: 06-22-2022 Departed Referred [facility] Out[facility] Start: 03-29-2022 End: 03-31-2022 Evaluation and management of inpatient CAROLINA RAZA MD [facility] Start: 03-23-2022 End: 03-23-2022 SAME DAY STAY OSIEL RUFFIN MD [facility] Start: 03-16-2022 End: 03-16-2022 SAME DAY STAY OSIEL RUFFIN MD [facility] Start: 03-02-2022 End: 03-02-2022 SAME DAY STAY CAROLINA RAZA MD [facility] Start: 02-26-2022 End: 03-02-2022 Outreach Lab KELSEY SOLANO FLAVOR ROOM WORKER-DOCK GRADER [facility] Start: 02-23-2022 End: 02-23-2022 SAME DAY STAY CAROLINA RAZA MD [facility] Start: 01-02-2022 End: 01-02-2022 Emergency department patient visit DR SHANNEN MCGEE MD [facility] Start: 12-31-2021 End: 12-31-2021 Patient encounter procedure KELSEY SOLANO FLAVOR ROOM WORKER-DOCK GRADER [facility] Start: 09-01-2021 End: 09-05-2021 Outreach Lab RITA KEE MD [facility] Procedures Date Procedure Procedure Detail Performing Clinician Start: 02-07-2024 Radex ankle complete minimum 3 views Cass Munson 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 Work Phone: Start: 09-05-2023 STREP A MOLECULAR (POC) Segun Marshall 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 Work Phone: Start: 01-31-2023 STREP A MOLECULAR (POC) Megan Matute PA-C Work Phone: Start: 07-13-2022 STREP A MOLECULAR (POC) Rhonda Montoya 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 Work Phone: None (qualifier value) KRISHNA KEE MD Plan of Treatment Date Care Activity Detail Author Start: 01-23-2032 Urine microalbumin profile DTaP,Tdap,Td Vaccine (3 - Td or Tdap) [facility] Start: 07-09-2024 Covid-19 Vaccine () Covid-19 Vaccine () [facility] Start: 07-09-2024 Influenza vaccination Influenza Vacc ine (#1) [facility] Start: 11-08-2023 Depression Assessment Depression Ass essment [facility] Start: 09-05-2023 End: 09-19-2023 COVID & INFLUENZA A/B & RSV NAAT, ROUTINE [facility] Work Phone: Comment on above: Expected: 09/05/2023 , Expires: 09/19/2023 Start: 07-09-2023 Covid-19 Vaccine ( season) Covid-19 Vaccine ( season) [facility] Start: 07-09-2023 Influenza vaccination Influenza Vacc ine (#1) [facility] Start: 11-08-2022 DEPRESSION ASSESSMENT DEPRESSION ASS ESSMENT [facility] Start: 07-13-2022 End: 07-27-2022 Influenza virus A and B RNA and SARS-CoV-2 (COVID-19) N gene panel - Respiratory specimen by MARITO with probe detection COVID WITH FLUA+B, ROUTINE Microbiology Routine Sore throat At increased risk of exposure to COVID-19 virus Expected: 07/13/2022, Expires: 07/27/2022 [facility] Work Phone: Comment on above: Expected: 07/13/2022 , Expires: 07/27/2022 Start: 07-09-2022 Influenza vaccination INFLUENZA (#1) [facility] Start: 12-04-2021 COVID-19 VACCINE (3 - Booster for Micha series) COVID-19 VACCINE (3 - Booster for Micha series) [facility] Start: 2015 HPV TESTING HPV TESTING [facility] Start: 2015 Screening for malign ant neoplasm of cervix HPV Testing [facility] Start: 2006 PAP TESTING PAP TESTING [facility] Start: 2006 Screening for malign ant neoplasm of cervix [facility] Start: 2004 Hepatitis B Vaccine (1 of 3 - 19+ 3-dose series) Hepatitis B Vaccine (1 of 3 - 19+ 3-dose series) [facility] Start: 2004 Urine microalbumin profile DTAP,TDAP,TD (1 - Tdap) [facility] Start: 2003 Anxiety Screening Anxiety Screening [facility] Start: 2003 [facility]: [facility] HEPATITIS C SCREENING HEPATITIS C [facility] Start: 2003 Hepatitis C screening Hepatitis C [facility] Start: 2003 HIV SCREENING HIV SCREENING [facility] Start: 2003 HIV screening HIV Screening [facility] Start: 1997 Adult depression screening assessment DEPRESSION SCREENING [facility] Start: 1985 HEPATITIS B (1 of 3 - 3-dose series) HEPATITIS B (1 of 3 - 3-dose series) [facility] Start: 1985 Hepatitis B Vaccine (1 of 3 - 3-dose series) Hepatitis B Vaccine (1 of 3 - 3-dose series) [facility] Patient referral [facility] Work Phone: ROUTINE FLU A/B + RSV ROUTINE FL U A/B + RSV Lab Routine URI, acute 09/05/2023 3:05 PM EDT [facility] Work Phone: SARS-CoV-2 (COVID-19 ) RNA [Presence] in Respiratory specimen by MARITO with probe detection COVID NAAT, UPPER RESPIRATORY, ROUTINE Microbiology Routine URI, acute 09/05/2023 3:05 PM EDT [facility] Work Phone: Immunizations Immunization Date Immunization Notes Care Provider Aiden cornell 08-26-2022 influenza virus vaccine, unspecified formulation Segun Marshall 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 Work Phone: [facility] 01-22-2022 tetanus toxoid, redu gerardo diphtheria toxoid, and acellular pertussis vaccine, adsorbed; Translations: [Boostrix (Tdap)] CAROLINA RAZA MD [facility] Comment on above: Result Comment: [facility] # [id number] 03-07-2021 SARS-CoV-2 (COVID-19 ) Ad26 vaccine, recombinant KELSEY ROBERTSKINSON FLAVOR ROOM WORKER-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 1985 Unknown [id number] 1985 Unknown [id number] 1985 Unknown [id number] 1985 Unknown [id number] Self-pay SELF PAY INSURANCE [id number] Unknown SELF PAY INSURANCE [id number] Social History Date Type Detail Facility Start: 12-20-2019 Never smoked t obacco (finding) [facility] Start: 1985 Sex Assigned At Female [facility] Start: 05-09-2019 Tobacco smoking stat [facility] Unknown if ever smoked [facility] Work Phone: Start: 06-14-2022 End: 02-06-2024 Alcohol intake Not Asked [facility] Start: 1985 Sex Assigned At Not on file [facility] Start: 07-03-2022 End: 07-13-2022 Exposure to SARS-CoV-2 (event) Not sure [facility] Start: 10-16-2020 End: 09-05-2023 History of Social function [facility] Start: 10-16-2020 End: 09-05-2023 Tobacco use panel [facility] National Score (1-10 0), lower number is lower risk Not on file [facility] Sexual Orientation [facility] Start: 12-29-2018 Sex Female (finding) [facility] Functional Status Date Assessment Result Facility 09-07-2023 Functional Status Up ad heather [facility] 03-31-2022 Functional Status Safety level maintained [facility] 03-31-2022 Functional Status [facility] 03-31-2022 Functional Status [facility] 03-31-2022 Functional Status Ambulation in [facility] 03-30-2022 Functional Status Rooming in [facility] 03-30-2022 Functional Status [facility] 03-30-2022 Functional Status [facility] 03-29-2022 Functional Status Home with family care [facility] Mental Status Date Assessment Result Facility 09-14-2023 Mental Status Orientation Oriented x 4 [facility] 09-07-2023 Mental Status Oriented x 4 [facility] Clinical Notes 01-02-2022 to 07-25-2025 Ora Farris, RT(R) - 02/07/2024 11:00 AM EDTPraisler-Beba Garza APRN.CNP - 02/01/2024 12:15 PM EDTPatient InstructionsTelephone Encounter - Bridgett Brito LPN - 09/07/2023 10:14 AM EDT Note Date & Type Note Facility 07-25-2025 Note HNO ID: [id number] Author: SEGUN MARSHALL APRN.TATY Service: ? Author Type: Nurse Practitioner Type: Progress Notes Filed: 07/25/2025 19:28 Note Text: URGENT CARE ROXANA Weems is a 39 year old female. Patient presents with: Pain, Sinus: Sinus pain and pressure, cough x8 days HPI The patient is a 39-year-old female with a history of Meniere's disease and anxiety, presenting with sinus pressure x8 days. Sinus Pressure: - Sinus pressure x8 days. - Associated eye pain and ear pressure. - Denies fever; reports chills. - Using jqjh-oyn-eohlyaj sinus medication. Meniere's Disease: - History of Meniere's disease; uncertain if current ear pressure is related. Anxiety: - Prescribed medication for anxiety; has not taken it for approximately 3 weeks, stating she has been "doing good without it." Allergies: - Allergic to Cipro. No past medical history on file. No past surgical history on file. ALLERGIES Ciprofloxacin MEDICATIONS amoxicillin-clavulanate potassium (AUGMENTIN) 875-125 mg per tablet Take 1 tablet by mouth every 12 hours for 7 days. crutches, aluminum Use as directed. fluconazole (DIFLUCAN) 100 mg tablet Take 1 tablet by mouth once daily. First day take 2 tablets, then one tablet every day until gone. predniSONE (DELTASONE) 10 mg tablet Take 10 mg by mouth as needed. meclizine (ANTIVERT) 25 mg tab Take 1 tablet by mouth three times daily. PNV no.95/ferrous fum/folic ac ( ORAL) Take by mouth. (Patient not taking: Reported on 09/05/2023) amitriptyline (ELAVIL) 25 mg tablet Take 25 mg by mouth daily at bedtime. (Patient not taking: Reported on 12/31/2021 ) ibuprofen (MOTRIN) 600 mg tablet Take 1 tablet by mouth every 8 hours as needed for Pain. (Patient not taking: Reported on 11/21/2019 ) NORGESTIMATE-ETHINYL ESTRADIOL (SPRINTEC, 28, ORAL) Take by mouth. (Patient not taking: Reported on 12/31/2021 ) No family history on file. SOCIAL HISTORY[1] Review of Systems Constitutional: (+) chills, (-) fever Eyes: (+) eye pain Ears/Nose/Mouth/Throat: (+) sinus pressure, (+) ear fullness Objective BP 119/87 Pulse 75 Temp 36.1 ?C (96.9 ?F) Resp 18 Wt 93.8 kg (206 lb 12.7 oz) LMP 02/03/2024 (Exact Date) SpO2 96% No Physical Exam Vitals and nursing note reviewed. Constitutional: General: She is not in acute distress. Appearance: Normal appearance. She is normal weight. She is not ill-appearing, toxic-appearing or diaphoretic. HENT: Head: Normocephalic and atraumatic. Comments: +maxillary sinus pressure Bilaterally Right Ear: Ear canal and external ear normal. Left Ear: Ear canal and external ear normal. Nose: Nose normal. No congestion or rhinorrhea. Mouth/Throat: Mouth: Mucous membranes are moist. Pharynx: Posterior oropharyngeal erythema present. No oropharyngeal exudate. Eyes: General: Right eye: No discharge. Left eye: No discharge. Extraocular Movements: Extraocular movements intact. Conjunctiva/sclera: Conjunctivae normal. Pupils: Pupils are equal, round, and reactive to light. Cardiovascular: Rate and Rhythm: Normal rate and regular rhythm. Pulses: Normal pulses. Heart sounds: Normal heart sounds. No murmur heard. No friction rub. Pulmonary: Effort: Pulmonary effort is normal. No respiratory distress. Breath sounds: Normal breath sounds. No stridor. No wheezing, rhonchi or rales. Chest: Chest wall: No tenderness. Abdominal: General: Abdomen is flat. There is no distension. Palpations: Abdomen is soft. There is no mass. Tenderness: There is no abdominal tenderness. There is no right CVA tenderness, left CVA tenderness, guarding or rebound. Hernia: No hernia is present. Musculoskeletal: General: No swelling, tenderness, deformity or signs of injury. Normal range of motion. Cervical back: Normal range of motion and neck supple. No rigidity. Right lower leg: No edema. Left lower leg: No edema. Lymphadenopathy: Cervical: Cervical adenopathy present. Skin: General: Skin is warm and dry. Coloration: Skin is not jaundiced or pale. Findings: No bruising, erythema, lesion or rash. Neurological: General: No focal deficit present. Mental Status: She is alert and oriented to person, place, and time. Cranial Nerves: No cranial nerve deficit. Sensory: No sensory deficit. Motor: No weakness. Coordination: Coordination normal. Gait: Gait normal. Psychiatric: Mood and Affect: Mood normal. Behavior: Behavior normal. Thought Content: Thought content normal. Judgment: Judgment normal. {ASSESSMENT/PLAN: 1. Rhinosinusitis - ICD9: 473.9, ICD10: J32.9 - Will begin treatment with as per antibiotic as written, see orders - The patient should also be given OTC cough and cold meds as needed, warm salt water gargles, throat lozenges and/or OTC throat spray as needed, and nasal saline gtts and suction prn for the first 5-7 days of treatment (more content not included)... [facility] 04-21-2025 Hospital Discharg e instructions Patient Education 04/20/2025 22:17:35 Headache, Migraine, Classic Migraine Headache This often severe type of headache is different from other types of headaches in that symptoms other than pain occur with the headache. Nausea and vomiting, lightheadedness, sensitivity to light (photophobia), and other visual disturbances are common migraine symptoms. The pain may last from a few hours to several days. It is not clear why migraines occur but certain factors called triggers can raise the risk of having a migraine attack. A migraine may be triggered by emotional stress or depression, or by hormone changes during the menstrual cycle. Other triggers include control pills, overuse of migraine medicines, alcohol or caffeine, foods with tyramine (such as aged cheese and wine), eyestrain, weather changes, missed meals, or too little or too much sleep. Home care Follow these tips when taking care of yourself at home: Don t drive yourself home if you were given pain medicine for your headache or are having visual symptoms. Instead, have someone else drive you home. Try to sleep when you get home. You should feel much better when you wake up. Cold can help ease migraine symptoms. Put an ice pack on your forehead or at the base of your skull. Put heat on the back of your neck to help ease any neck spasm. Drink only clear liquids or eat a light diet until your symptoms get better. This will help you avoid nausea and vomiting. How to prevent migraines Pay attention to what seems to trigger your headache. Try to avoid the triggers when you can. If you have frequent headaches, consider keeping a headache diary. In it, write down what you were doing, feeling, or eating in the hours before each headache. Show this to your healthcare provider to help find the cause of your headaches. If stress seems to be a trigger for your headaches, figure out what is causing stress in your life. Learn new ways to handle your stress. Ideas include regular exercise, biofeedback, self-hypnosis, yoga, and meditation. Talk with your healthcare provider to find out more information about managing stress. Many books and digital media are also available on this subject. Tyramine is a substance found in many foods. It can trigger a migraine in some people. These foods contain tyramine: Chocolate Yogurt All cheeses, but especially aged cheeses Smoked or pickled fish and meat, including tellez, caviar, bologna, pepperoni, and salami Liver Avocados Bananas Figs Raisins Red wine Try staying away from these foods for 1 to 2 months to see if you have fewer headaches. How to treat future headaches Take time out at the first sign of a headache, if possible. Find a quiet, dark, comfortable place to sit or lie down. Let yourself relax or sleep. Put an ice pack on your forehead or on the area of greatest pain. A heating pad and massage may help if you are having a muscle spasm and tightness in your neck. If you have been prescribed a medicine to stop a migraine headache, use this at the first warning sign of the headache for best results. First signs may be an aura or pain. If you need to take medicine often for your migraine, talk with your healthcare provider about other ways to prevent your headaches. Follow-up care Follow up with your healthcare provider, or as advised. Talk with your provider if you have frequent headaches. He or she can figure out a treatment plan. Ask if you can have medicine to take at home the next time you get a bad headache. This may keep you from having to visit the emergency department in the future. You may need to see a headache specialist (neurologist) if you continue to have headaches. When to seek medical advice Call your healthcare provider right away if any of these occur: Your head pain gets worse, or doesn t get better within 24 hours You can t keep liquids down (repeated vomiting) Pain in your sinuses, ears, or throat Fever of 100.4 F (38 C) or higher, or as directed by your healthcare provider Stiff neck Extreme drowsiness, confusion, or fainting Dizziness, or dizziness with spinning sensation (vertigo) Weakness in an arm or leg, or on one side of your face Difficulty talking or seeing [id number] [employer]. [address] [place] [address]. All rights reserved. This information is not intended as a substitute for professional medical care. Always follow your healthcare professional's instructions. Follow Up Care 04/20/2025 20:36:20 With:MARIANN LA MD Address: [address] [place] [id number]- When:2-4 days [facility] 04-20-2025 Note Discharge Instructions Thank you for allowing [facility] to assist you with your healthcare needs. The following is important discharge information regarding your hospital visit. Diagnosis from Today's Visit Migraine What to Do Next Instructions from Your Care Team No qualifying data available. Post Acute Orders No qualifying data available. You Need to Schedule the Following Appointments Follow Up with MARIANN LA MD When:Within 2-4 days Where:[address] [place] [id number]- Allergies ciprofloxacin Medications Please ask your primary doctor or pharmacist before taking any other medication not listed, including over the counter drugs, herbal medications, vitamins and or supplements as they may interact with your home medications. What How Much When Instructions Last Dose New SUMAtriptan (Imitrex 50 mg oral tablet) 1 tab(s) by mouth Once a day as needed for as needed for migraine headache Duration: 30 Days 1 tab onset , may repeat in 2 hrs. MAX 4 tab(s)/ 24hrs Printed Prescription Unchanged albuterol (albuterol MDI (90 mcg/ inh) CFC free inhalation aerosol) 1 puff(s) by inhalation Every 6 hours as needed for as needed for wheezing Unchanged multivitamin, ( Multivitamins) 1 tab(s) by mouth Once a day Please take this list to your next doctor s visit. Bring all medications you take, including over the counter medications, herbals and other supplements with you to your doctor s visit. Patients and families are reminded to discard old lists and to update any records with all medication providers or retail pharmacies. Education Materials Migraine Headache This often severe type of headache is different from other types of headaches in that symptoms other than pain occur with the headache. Nausea and vomiting, lightheadedness, sensitivity to light (photophobia), and other visual disturbances are common migraine symptoms. The pain may last from a few hours to several days. It is not clear why migraines occur but certain factors called triggers can raise the risk of having a migraine attack. A migraine may be triggered by emotional stress or depression, or by hormone changes during the menstrual cycle. Other triggers include control pills, overuse of migraine medicines, alcohol or caffeine, foods with tyramine (such as aged cheese and wine), eyestrain, weather changes, missed meals, or too little or too much sleep. Home care Follow these tips when taking care of yourself at home: Don t drive yourself home if you were given pain medicine for your headache or are having visual symptoms. Instead, have someone else drive you home. Try to sleep when you get home. You should feel much better when you wake up. Cold can help ease migraine symptoms. Put an ice pack on your forehead or at the base of your skull. Put heat on the back of your neck to help ease any neck spasm. Drink only clear liquids or eat a light diet until your symptoms get better. This will help you avoid nausea and vomiting. How to prevent migraines Pay attention to what seems to trigger your headache. Try to avoid the triggers when you can. If you have frequent headaches, consider keeping a headache diary. In it, write down what you were doing, feeling, or eating in the hours before each headache. Show this to your healthcare provider to help find the cause of your headaches. If stress seems to be a trigger for your headaches, figure out what is causing stress in your life. Learn new ways to handle your stress. Ideas include regular exercise, biofeedback, self-hypnosis, yoga, and meditation. Talk with your healthcare provider to find out more information about managing stress. Many books and digital media are also available on this subject. Tyramine is a substance found in many foods. It can trigger a migraine in some people. These foods contain tyramine: Chocolate Yogurt All cheeses, but especially aged cheeses Smoked or pickled fish and meat, including tellez, caviar, bologna, pepperoni, and salami Liver Avocados Bananas Figs Raisins Red wine Try staying away from these foods for 1 to 2 months to see if you have fewer headaches. How to treat future headaches Take time out at the first sign of a headache, if possible. Find a quiet, dark, comfortable place to sit or lie down. Let yourself relax or sleep. Put an ice pack on your forehead or on the area of greatest pain. A heating pad and massage may help if you are having a muscle spasm and tightness in your neck. If you have been prescribed a medicine to stop a migraine headache, use this at the first warning sign of the headache for best results. First signs may be an aura or pain. If you need to take medicine often for your migraine, talk with your healthcare provider about other ways to prevent your headaches. Follow-up care Follow up with your healthcare provider, or as advised. Talk with your provider if you have frequent headaches. He or she can figure out a treatment plan. Ask if you can have medicine to take at home the next time you get a bad headache. This may keep you from having to visit the emergency department in the future. You may need to see a headache specialist (neurologist) if you continue to have headaches. When to seek medical advice Call your healthcare provider right away if any of these occur: Your head pain gets worse, or doesn t get better within 24 hours You can t keep liquids down (repeated vomiting) Pain in your sinuses, ears, or throat Fever of 100.4 F (38 C) or higher, or as directed by your healthcare provider Stiff neck Extreme drowsiness, confusion, or fainting Dizziness, or dizziness with spinning sensation (vertigo) Weakness in an arm or leg, or on one side of your face Difficulty talking or seeing [id number] [employer]. [address] [place] [address]. All rights reserved. This information is not intended as a substitute for professional medical care. Always follow your healthcare professional's instructions. Additional Information VACCINATE! IT SAVES LIVES! Members of the community who have not yet received the COVID-19 vaccine and would like to receive it can visit one of [facility] vaccine clinics. There are many vaccine clinic locations within the [facility]. For locations and available times, please visit [email or web address] It is important to note that some COVID mobile vaccine clinics are held outdoors and may be canceled in rainy or stormy conditions. To learn more about pediatric vaccinations (ages 5-11), we invite you to visit the [facility] webpage. [email or web address] [email or web address] To learn more about the COVID-19 vaccine, we invite you to visit the CDC website for a list of frequently asked questions. https://www.cdc.gov/coronavirus/ 2019-ncov/vaccines/faq.html [facility] Patient Portal Access Instructions: Stay connected with your healthcare team and access your personal medical information anytime with the [facility] [employer] Patient Portal. If you would like a full copy of your medical records please contact the [facility] Medical Records Department Wednesday through Wednesday between 8a.m. and 4:30p.m. Please follow the directions below to access the portal: 1.Access the email account you provided upon registration to the [facility].2.Look for an invitation email from [facility].3.Open the email and access the invitation link: Accept Invitation to [facility]4.Fill in the required bhat to create your account. Sign into [email or web address] with your username and password that you created in the above steps to stay up to date. You can then view a summary of results, a summary of your visits, and the ability to download your summaries to your computer or send the information securely to a physician. Remember that your healthcare information is confidential, so carefully consider who you will allow to register on the [employer] Patient Portal for access to your information. You can also access the [employer] Patient Portal on the [employer]. Simply click on "Health Records" under "Health Data" and then click on the [employer] logo. HOW TO SAFELY DISPOSE OF PRESCRIPTION MEDICATIONS Please use one of the following methods to safely dispose of your unused medications. 1.Use a drug disposal kit: the drug disposal pouch allows you to safely discard your old and unused drugs. Ask your nurse to give you one when you are discharged.2.Visit a local take-back location: Many local pharmacies and police departments have programs that collect old and unwanted prescription drugs. Call your local pharmacy or go to http://bit.CRAZE/7U0Uc9q to find one close to you.3.Make use of household items: Use cat litter or old coffee grounds to dispose medications if other options are not available. Mix your drugs with these household products, seal them in an airtight container and throw it into the garbage. Call [facility]: [phone] to be sure your drugs can be disposed of in this way. Some medicines may require a different approach.4.Never flush your medications down the toilet. IF YOU HAVE BEEN PRESCRIBED AN OPIOIDS FOR PAIN If you have been prescribed an opioid (such as hydrocodone, oxycodone or morphine), it is critical to understand the possible side effects and risks of opioid pain medications. Even when taken as directed, opioids can have several side effects including: Tolerance, meaning you might need to take more of a medication for the same pain relief. Nausea, vomiting and/or constipation. Sleepiness, dizziness, dry mouth, confusion, depression or itching. Physical dependence, meaning you have withdrawal symptoms when a medication is stopped ? this can develop within a few days. KNOW YOUR RESPONSIBILITIES It is important to know exactly how much and how often to take the opioid pain medications you are prescribed. Never take opioids in higher amounts or more often than prescribed. Do not combine opioids with alcohol or other drugs that cause drowsiness, such as benzodiazepines, also known as benzos, including diazepam and alprazolam, muscle relaxants or sleep aids. Never sell or share prescription opioids. This is illegal. Store opioids in a secure place and out of reach of others (including children, family, friends and visitors). The last page(s) of this document has been signed and retained as a CHART COPY Signatures Patient Education Materials Headache, Migraine, Classic Medication Leaflets My discharge plan and instructions have been reviewed and explained to me and I,YOGESH ANDRESSA S understand my current condition and have read and understand these discharge instructions. I have received a written copy of the plan/instructions. If I have questions, I am aware that I should contact my doctor. Patient/Insurance Processing Clerk Signature: Date/Time: Relationship to Patient: Witness Name/Signature: Date/Time: [facility] 02-07-2024 History of Presen t illness Narrative Radiology Service Progress Note PATIENT NAME: Andressa Gerber DATE OF SERVICE: February 07, 2024 TIME: 11:03 AM PATIENT IDENTITY VERIFICATION COMPLETED USING TWO (2) IDENTIFIERS: Name and Date of confirmed by patient verbally. FALL SCREENING: Has the patient had 2 falls in the last year or 1 fall with injury or currently using an Ambulatory Assistive Device (Walker, Cane, Wheelchair, Crutches, etc.)? Yes, Patient High Risk for Falls What interventions were put in place to prevent falls during this visit? Instructed Patient to Call for Help if Needed, Offered Assistance with Transfers/Clothing, and Increased Observations by Caregivers PATIENT GENDER DATA: Female. status: : No status: NO. PATIENT RELEVANT IMPLANT DATA REVIEWED: Yes PATIENT PRESENTS WITH AN IMPLANTABLE OR ATTACHED ROPEWALK ROPE MAKER: No RADIOLOGY DEPARTMENT: General X-ray: Exam(s) Completed: Lower Extremity X-Ray(s): Ankle, Right PERIPHERAL IV DATA: Not applicable SIGNED BY: RT Yolie(R) February 07, 2024 11:03 AM documented in this encounter [facility] 02-01-2024 History of Presen t illness Narrative Images from the original note were not included. Subjective HPI Andressa Gerber is a 38 year old female who presents with right nipple pain and cracking. She is an almost 2 year old. 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 She denies fever or swelling. Has been using nystatin cream. Review of Systems Constitutional: Negative for chills and fever. Musculoskeletal: Negative for myalgias. Skin: Negative for itching and rash. See HPI BP 118/78 Pulse 91 Temp 36.7 C (98.1 F) (Tympanic) Resp 18 Wt 87.5 kg (192 lb 14.4 oz) LMP 09/07/2017 (Exact Date) SpO2 98% BMI 32.35 kg/m History reviewed. No pertinent past medical history. No past surgical history on file. ALLERGIES Ciprofloxacin MEDICATIONS ondansetron orally disintegrating (ZOFRAN ODT) 4 mg disintegrating tablet Take by mouth. predniSONE (DELTASONE) 10 mg tablet Take 10 mg by mouth as needed. meclizine (ANTIVERT) 25 mg tab Take 1 tablet by mouth three times daily. fluconazole (DIFLUCAN) 150 mg tablet Take 1 tablet by mouth one time only for 1 dose. Repeat in 3 days as needed. PNV no.95/ferrous fum/folic ac ( ORAL) Take by mouth. (Patient not taking: Reported on 09/05/2023) amitriptyline (ELAVIL) 25 mg tablet Take 25 mg by mouth daily at bedtime. (Patient not taking: Reported on 12/31/2021 ) ibuprofen (MOTRIN) 600 mg tablet Take 1 tablet by mouth every 8 hours as needed for Pain. (Patient not taking: Reported on 11/21/2019 ) NORGESTIMATE-ETHINYL ESTRADIOL (SPRINTEC, 28, ORAL) Take by mouth. (Patient not taking: Reported on 12/31/2021 ) No family history on file. Social History Tobacco Use Smoking status: Never Smokeless tobacco: Never Objective Physical Exam Vitals and nursing note reviewed. Constitutional: Appearance: Normal appearance. Chest: Skin: General: Skin is warm and dry. Findings: Erythema present. No bruising or rash. Neurological: Mental Status: She is alert. ASSESSMENT/PLAN: 1. Candidiasis of breast - ICD9: 112.89, ICD10: B37.89 - FLUCONAZOLE 150 MG TABLET -may continue to use nystatin cream - Follow-up with your PCP in 3-5 days if symptoms have not improved or sooner if symptoms worsen - Discussed red flags and need for immediate medical evaluation if any occur. - Discussed supportive care treatment with fluids, rest and analgesia. - Discussed expected course of illness Beba Han APRN.CNP documented in this encounter [facility] 02-01-2024 Instructions Beba Han APRN.CNP - 02/01/2024 12:14 PM EDT ASSESSMENT/PLAN: 1. Candidiasis of breast - ICD9: 112.89, ICD10: B37.89 - FLUCONAZOLE 150 MG TABLET -may continue to use nystatin cream - Follow-up with your PCP in 3-5 days if symptoms have not improved or sooner if symptoms worsen - Discussed red flags and need for immediate medical evaluation if any occur. - Discussed supportive care treatment with fluids, rest and analgesia. - Discussed expected course of illness Beba Han APRN.CNP documented in this encounter [facility] 09-15-2023 Hospital Discharg e instructions Patient Education 09/15/2023 00:44:30 Headache, Unspecified Headache, Unspecified A number of things can cause headaches. The cause of your headache isn t clear. But it doesn t seem to be a sign of any serious illness. Headache affects almost everyone at some time. It is the most common reason people miss days from work or school. You could have a tension headache or a migraine headache. Stress can cause a tension headache. This can happen if you tense the muscles of your shoulders, neck, and scalp without knowing it. If this stress lasts long enough, you may develop a tension headache. It is not clear why migraines occur, but certain things called" triggers" can raise the risk of having a migraine attack. Migraine triggers may include emotional stress or depression, or by hormone changes during the menstrual cycle. Other triggers include control pills and other medicines, alcohol or caffeine, foods with tyramine (such as aged cheese, wine), eyestrain, weather changes, missed meals, and lack of sleep or oversleeping. Other causes of headache include: Viral illness with high fever Head injury with concussion Sinus, ear, or throat infection Dental pain and jaw joint (TMJ) pain More serious but less common causes of headache include stroke, brain hemorrhage, brain tumor, meningitis, and encephalitis. Home care Follow these tips when taking care of yourself at home: Don t drive yourself home if you were given pain medicine for your headache. Instead, have someone else drive you home. Try to sleep when you get home. You should feel much better when you wake up. Apply heat to the back of your neck to ease a neck muscle spasm. Take care of a migraine headache by putting an ice pack on your forehead or at the base of your skull. If you have nausea or vomiting, eat a light diet until your headache eases. If you have a migraine headache, use sunglasses when in the daylight or around bright indoor lighting until your symptoms get better. Bright glaring light can make this type of headache worse. Follow-up care Follow up with your healthcare provider, or as advised. Talk with your provider if you have frequent headaches. He or she can help figure out a treatment plan. By knowing the earliest signs of headache, and starting treatment right away, you may be able to stop the pain yourself. When to seek medical advice Call your healthcare provider right away if any of these occur: Your head pain suddenly gets worse after sexual intercourse or strenuous activity Your head pain doesn t get better within 24 hours You aren t able to keep liquids down (repeated vomiting) Fever of 100.4 F (38 C) or higher, or as directed by your healthcare provider Stiff neck Extreme drowsiness, confusion, or fainting Dizziness or dizziness with spinning sensation (vertigo) Weakness in an arm or leg or one side of your face You have trouble talking or seeing [id number] [employer]. [address] [place] [address], [place] [address]. All rights reserved. This information is not intended as a substitute for professional medical care. Always follow your healthcare professional's instructions. Follow Up Care 09/14/2023 22:03:24 With:MARIANN LA MD Address: [address] [place] [id number]- When:2-4 days [facility] 09-15-2023 Note Discharge Instructions Thank you for allowing [facility] to assist you with your healthcare needs. The following is important discharge information regarding your hospital visit. Diagnosis from Today's Visit Headache Headache What to Do Next Instructions from Your Care Team No qualifying data available. Post Acute Orders No qualifying data available. You Need to Schedule the Following Appointments Follow Up with MARIANN LA MD When Within 2-4 days Where: [address] [place] [id number]- Allergies ciprofloxacin Medications Please ask your primary doctor or pharmacist before taking any other medication not listed, including over the counter drugs, herbal medications, vitamins and or supplements as they may interact with your home medications. What How Much When Instructions Last Dose Unchanged albuterol (albuterol MDI (90 mcg/ inh) CFC free inhalation aerosol) 1 puff(s) by inhalation Every 6 hours as needed for as needed for wheezing Unchanged multivitamin, ( Multivitamins) 1 tab(s) by mouth Once a day Please take this list to your next doctor s visit. Bring all medications you take, including over the counter medications, herbals and other supplements with you to your doctor s visit. Patients and families are reminded to discard old lists and to update any records with all medication providers or retail pharmacies. Education Materials Headache, Unspecified A number of things can cause headaches. The cause of your headache isn t clear. But it doesn t seem to be a sign of any serious illness. Headache affects almost everyone at some time. It is the most common reason people miss days from work or school. You could have a tension headache or a migraine headache. Stress can cause a tension headache. This can happen if you tense the muscles of your shoulders, neck, and scalp without knowing it. If this stress lasts long enough, you may develop a tension headache. It is not clear why migraines occur, but certain things called" triggers" can raise the risk of having a migraine attack. Migraine triggers may include emotional stress or depression, or by hormone changes during the menstrual cycle. Other triggers include control pills and other medicines, alcohol or caffeine, foods with tyramine (such as aged cheese, wine), eyestrain, weather changes, missed meals, and lack of sleep or oversleeping. Other causes of headache include: Viral illness with high fever Head injury with concussion Sinus, ear, or throat infection Dental pain and jaw joint (TMJ) pain More serious but less common causes of headache include stroke, brain hemorrhage, brain tumor, meningitis, and encephalitis. Home care Follow these tips when taking care of yourself at home: Don t drive yourself home if you were given pain medicine for your headache. Instead, have someone else drive you home. Try to sleep when you get home. You should feel much better when you wake up. Apply heat to the back of your neck to ease a neck muscle spasm. Take care of a migraine headache by putting an ice pack on your forehead or at the base of your skull. If you have nausea or vomiting, eat a light diet until your headache eases. If you have a migraine headache, use sunglasses when in the daylight or around bright indoor lighting until your symptoms get better. Bright glaring light can make this type of headache worse. Follow-up care Follow up with your healthcare provider, or as advised. Talk with your provider if you have frequent headaches. He or she can help figure out a treatment plan. By knowing the earliest signs of headache, and starting treatment right away, you may be able to stop the pain yourself. When to seek medical advice Call your healthcare provider right away if any of these occur: Your head pain suddenly gets worse after sexual intercourse or strenuous activity Your head pain doesn t get better within 24 hours You aren t able to keep liquids down (repeated vomiting) Fever of 100.4 F (38 C) or higher, or as directed by your healthcare provider Stiff neck Extreme drowsiness, confusion, or fainting Dizziness or dizziness with spinning sensation (vertigo) Weakness in an arm or leg or one side of your face You have trouble talking or seeing [phone] [employer]. [address] [place] [address], [place] [address]. All rights reserved. This information is not intended as a substitute for professional medical care. Always follow your healthcare professional's instructions. Additional Information VACCINATE! IT SAVES LIVES! Members of the community who have not yet received the COVID-19 vaccine and would like to receive it can visit one of [facility] vaccine clinics. There are many vaccine clinic locations within the [facility]. For locations and available times, please visit [email or web address] [email or web address] It is important to note that some COVID mobile vaccine clinics are held outdoors and may be canceled in rainy or stormy conditions. To learn more about pediatric vaccinations (ages 5-11), we invite you to visit the [facility] webpage. [email or web address] [email or web address]-Freq [email or web address] To learn more about the COVID-19 vaccine, we invite you to visit the CDC website for a list of frequently asked questions. https://www.cdc.gov/coronavirus/ 2019-ncov/vaccines/faq.html [facility] [facility] Patient Portal Access Instructions: Stay connected with your healthcare team and access your personal medical information anytime with the [facility] [employer] Patient Portal. If you would like a full copy of your medical records please contact the [facility] Medical Records Department Wednesday through Wednesday between 8a.m. and 4:30p.m. Please follow the directions below to access the portal: 1.Access the email account you provided upon registration to the [facility].2.Look for an invitation email from [facility].3.Open the email and access the invitation link: Accept Invitation to [facility]4.Fill in the required bhat to create your account. Sign into [email or web address] with your username and password that you created in the above steps to stay up to date. You can then view a summary of results, a summary of your visits, and the ability to download your summaries to your computer or send the information securely to a physician. Remember that your healthcare information is confidential, so carefully consider who you will allow to register on the [facility] Patient Portal for access to your information. You can also access the [facility] Patient Portal on the [employer]. Simply click on "Health Records" under "Health Data" and then click on the [employer] logo. HOW TO SAFELY DISPOSE OF PRESCRIPTION MEDICATIONS Please use one of the following methods to safely dispose of your unused medications. 1.Use a drug disposal kit: the drug disposal pouch allows you to safely discard your old and unused drugs. Ask your nurse to give you one when you are discharged.2.Visit a local take-back location: Many local pharmacies and police departments have programs that collect old and unwanted prescription drugs. Call your local pharmacy or go to http://Fluxome.CRAZE/4B1Rb7v to find one close to you.3.Make use of household items: Use cat litter or old coffee grounds to dispose medications if other options are not available. Mix your drugs with these household products, seal them in an airtight container and throw it into the garbage. Call [facility]: [phone] to be sure your drugs can be disposed of in this way. Some medicines may require a different approach.4.Never flush your medications down the toilet. IF YOU HAVE BEEN PRESCRIBED AN OPIOIDS FOR PAIN If you have been prescribed an opioid (such as hydrocodone, oxycodone or morphine), it is critical to understand the possible side effects and risks of opioid pain medications. Even when taken as directed, opioids can have several side effects including: Tolerance, meaning you might need to take more of a medication for the same pain relief. Nausea, vomiting and/or constipation. Sleepiness, dizziness, dry mouth, confusion, depression or itching. Physical dependence, meaning you have withdrawal symptoms when a medication is stopped ? this can develop within a few days. KNOW YOUR RESPONSIBILITIES It is important to know exactly how much and how often to take the opioid pain medications you are prescribed. Never take opioids in higher amounts or more often than prescribed. Do not combine opioids with alcohol or other drugs that cause drowsiness, such as benzodiazepines, also known as benzos, including diazepam and alprazolam, muscle relaxants or sleep aids. Never sell or share prescription opioids. This is illegal. Store opioids in a secure place and out of reach of others (including children, family, friends and visitors). The last page(s) of this document has been signed and retained as a CHART COPY Signatures Patient Education Materials Headache, Unspecified Medication Leaflets My discharge plan and instructions have been reviewed and explained to me and I,ANDRESSA GERBER understand my current condition and have read and understand these discharge instructions. I have received a written copy of the plan/instructions. If I have questions, I am aware that I should contact my doctor. Patient/Insurance Processing Clerk Signature: Date/Time: Relationship to Patient: Witness Name/Signature: Date/Time: [facility] 09-07-2023 Miscellaneous Notes Patient given results and verbalized understanding of instructions given. Bridgett Brito LPN ----- Message from Beba Han APRN.DOCK GRADER sent at 09/07/2023 10:00 AM EDT ----- Please advise patient the test was negative for COVID, flu, RSV (not viewed in MyChart). documented in this encounter [facility] 09-07-2023 Hospital Discharg e instructions Patient Education 09/07/2023 00:56:18 URI, Viral, No Abx (Adult) Viral Upper Respiratory Illness (Adult) You have a viral upper respiratory illness (URI), which is another term for the common cold. This illness is contagious during the first few days. It is spread through the air by coughing and sneezing. It may also be spread by direct contact (touching the sick person and then touching your own eyes, nose, or mouth). Frequent handwashing will decrease risk of spread. Most viral illnesses go away within 7 to 10 days with rest and simple home remedies. Sometimes the illness may last for several weeks. Antibiotics will not kill a virus, and they are generally not prescribed for this condition. Home care If symptoms are severe, rest at home for the first 2 to 3 days. When you resume activity, don't let yourself get too tired. Don't smoke. If you need help stopping, talk with your healthcare provider. Avoid being exposed to cigarette smoke (yours or others ). You may use acetaminophen or ibuprofen to control pain and fever, unless another medicine was prescribed. If you have chronic liver or kidney disease, have ever had a stomach ulcer or gastrointestinal bleeding, or are taking blood-thinning medicines, talk with your healthcare provider before using these medicines. Aspirin should never be given to anyone under 18 years of age who is ill with a viral infection or fever. It may cause severe liver or brain damage. Your appetite may be poor, so a light diet is fine. Stay well hydrated by drinking 6 to 8 glasses of fluids per day (water, soft drinks, juices, tea, or soup). Extra fluids will help loosen secretions in the nose and lungs. Labc-onf-ljriumy cold medicines will not shorten the length of time you re sick, but they may be helpful for the following symptoms: cough, sore throat, and nasal and sinus congestion. If you take prescription medicines, ask your healthcare provider or pharmacist which ojug-bul-uaqzbes medicines are safe to use. (Note: Don't use decongestants if you have high blood pressure.) Follow-up care Follow up with your healthcare provider, or as advised. When to seek medical advice Call your healthcare provider right away if any of these occur: Cough with lots of colored sputum (mucus) Severe headache; face, neck, or ear pain Difficulty swallowing due to throat pain Fever of 100.4 F (38 C) or higher, or as directed by your healthcare provider Call 911 Call 911 if any of these occur: Chest pain, shortness of breath, wheezing, or difficulty breathing Coughing up blood Very severe pain with swallowing, especially if it goes along with a muffled voice [phone] [employer]. [address] [place] [address]. All rights reserved. This information is not intended as a substitute for professional medical care. Always follow your healthcare professional's instructions. Follow Up Care 09/06/2023 23:43:14 With:MARIANN LA MD Address: [address] [place] [id number]- When:2-4 days Comments:Return to ED if symptoms worsen [facility] 09-07-2023 Note Discharge Instructions Thank you for allowing [facility] to assist you with your healthcare needs. The following is important discharge information regarding your hospital visit. Diagnosis from Today's Visit Cough Viral upper respiratory tract infection What to Do Next Instructions from Your Care Team No qualifying data available. Post Acute Orders No qualifying data available. You Need to Schedule the Following Appointments Follow Up with MARIANN LA MD When Within 2-4 days Why: Return to ED if symptoms worsen Where: [address] [place] [id number]- Allergies ciprofloxacin Medications Please ask your primary doctor or pharmacist before taking any other medication not listed, including over the counter drugs, herbal medications, vitamins and or supplements as they may interact with your home medications. What How Much When Instructions Last Dose New albuterol (albuterol MDI (90 mcg/ inh) CFC free inhalation aerosol) 1 puff(s) by inhalation Every 6 hours as needed for as needed for wheezing Printed Prescription New dextromethorphan-guaifenesin (dextromethorphan-guaifenesin 10 mg-100 mg/ 10 mL oral liquid) 5 Milliliter by mouth Every 4 hours as needed for as needed for cough Duration: 3 Days not to exceed 6 doses/ day Printed Prescription Unchanged multivitamin, ( Multivitamins) 1 tab(s) by mouth Once a day Please take this list to your next doctor s visit. Bring all medications you take, including over the counter medications, herbals and other supplements with you to your doctor s visit. Patients and families are reminded to discard old lists and to update any records with all medication providers or retail pharmacies. Education Materials Viral Upper Respiratory Illness (Adult) You have a viral upper respiratory illness (URI), which is another term for the common cold. This illness is contagious during the first few days. It is spread through the air by coughing and sneezing. It may also be spread by direct contact (touching the sick person and then touching your own eyes, nose, or mouth). Frequent handwashing will decrease risk of spread. Most viral illnesses go away within 7 to 10 days with rest and simple home remedies. Sometimes the illness may last for several weeks. Antibiotics will not kill a virus, and they are generally not prescribed for this condition. Home care If symptoms are severe, rest at home for the first 2 to 3 days. When you resume activity, don't let yourself get too tired. Don't smoke. If you need help stopping, talk with your healthcare provider. Avoid being exposed to cigarette smoke (yours or others ). You may use acetaminophen or ibuprofen to control pain and fever, unless another medicine was prescribed. If you have chronic liver or kidney disease, have ever had a stomach ulcer or gastrointestinal bleeding, or are taking blood-thinning medicines, talk with your healthcare provider before using these medicines. Aspirin should never be given to anyone under 18 years of age who is ill with a viral infection or fever. It may cause severe liver or brain damage. Your appetite may be poor, so a light diet is fine. Stay well hydrated by drinking 6 to 8 glasses of fluids per day (water, soft drinks, juices, tea, or soup). Extra fluids will help loosen secretions in the nose and lungs. Wchl-zim-pjvvjmy cold medicines will not shorten the length of time you re sick, but they may be helpful for the following symptoms: cough, sore throat, and nasal and sinus congestion. If you take prescription medicines, ask your healthcare provider or pharmacist which jivb-frk-lvubzay medicines are safe to use. (Note: Don't use decongestants if you have high blood pressure.) Follow-up care Follow up with your healthcare provider, or as advised. When to seek medical advice Call your healthcare provider right away if any of these occur: Cough with lots of colored sputum (mucus) Severe headache; face, neck, or ear pain Difficulty swallowing due to throat pain Fever of 100.4 F (38 C) or higher, or as directed by your healthcare provider Call 911 Call 911 if any of these occur: Chest pain, shortness of breath, wheezing, or difficulty breathing Coughing up blood Very severe pain with swallowing, especially if it goes along with a muffled voice [phone] [employer]. [address] [place] [address]. All rights reserved. This information is not intended as a substitute for professional medical care. Always follow your healthcare professional's instructions. Additional Information VACCINATE! IT SAVES LIVES! Members of the community who have not yet received the COVID-19 vaccine and would like to receive it can visit one of [facility] vaccine clinics. There are many vaccine clinic locations within the [facility]. For locations and available times, please visit [email or web address] It is important to note that some COVID mobile vaccine clinics are held outdoors and may be canceled in rainy or stormy conditions. To learn more about pediatric vaccinations (ages 5-11), we invite you to visit the [facility] webpage. [email or web address] To learn more about the COVID-19 vaccine, we invite you to visit the CDC website for a list of frequently asked questions. https://www.cdc.gov/coronavirus/ 2019-ncov/vaccines/faq.html [facility] Patient Portal Access Instructions: Stay connected with your healthcare team and access your personal medical information anytime with the [facility] Patient Portal. If you would like a full copy of your medical records please contact the [facility] Medical Records Department Wednesday through Wednesday between 8a.m. and 4:30p.m. Please follow the directions below to access the portal: 1.Access the email account you provided upon registration to the hospital.2.Look for an invitation email from [facility].3.Open the email and access the invitation link: Accept Invitation to [facility]4.Fill in the required bhat to create your account. Sign into [email or web address] with your username and password that you created in the above steps to stay up to date. You can then view a summary of results, a summary of your visits, and the ability to download your summaries to your computer or send the information securely to a physician. Remember that your healthcare information is confidential, so carefully consider who you will allow to register on the [facility] Patient Portal for access to your information. You can also access the [facility] Patient Portal on the [employer]. Simply click on "Health Records" under "Health Data" and then click on the [facility] logo. HOW TO SAFELY DISPOSE OF PRESCRIPTION MEDICATIONS Please use one of the following methods to safely dispose of your unused medications. 1.Use a drug disposal kit: the drug disposal pouch allows you to safely discard your old and unused drugs. Ask your nurse to give you one when you are discharged.2.Visit a local take-back location: Many local pharmacies and police departments have programs that collect old and unwanted prescription drugs. Call your local pharmacy or go to http://Fluxome.CRAZE/9J0Vk7y to find one close to you.3.Make use of household items: Use cat litter or old coffee grounds to dispose medications if other options are not available. Mix your drugs with these household products, seal them in an airtight container and throw it into the garbage. Call [facility]: [phone] to be sure your drugs can be disposed of in this way. Some medicines may require a different approach.4.Never flush your medications down the toilet. IF YOU HAVE BEEN PRESCRIBED AN OPIOIDS FOR PAIN If you have been prescribed an opioid (such as hydrocodone, oxycodone or morphine), it is critical to understand the possible side effects and risks of opioid pain medications. Even when taken as directed, opioids can have several side effects including: Tolerance, meaning you might need to take more of a medication for the same pain relief. Nausea, vomiting and/or constipation. Sleepiness, dizziness, dry mouth, confusion, depression or itching. Physical dependence, meaning you have withdrawal symptoms when a medication is stopped ? this can develop within a few days. KNOW YOUR RESPONSIBILITIES It is important to know exactly how much and how often to take the opioid pain medications you are prescribed. Never take opioids in higher amounts or more often than prescribed. Do not combine opioids with alcohol or other drugs that cause drowsiness, such as benzodiazepines, also known as benzos, including diazepam and alprazolam, muscle relaxants or sleep aids. Never sell or share prescription opioids. This is illegal. Store opioids in a secure place and out of reach of others (including children, family, friends and visitors). The last page(s) of this document has been signed and retained as a CHART COPY Signatures Patient Education Materials URI, Viral, No Abx (Adult) Medication Leaflets My discharge plan and instructions have been reviewed and explained to me and I,ANDRESSA GERBER understand my current condition and have read and understand these discharge instructions. I have received a written copy of the plan/instructions. If I have questions, I am aware that I should contact my doctor. Patient/Insurance Processing Clerk Signature: Date/Time: Relationship to Patient: Witness Name/Signature: Date/Time: [facility] 09-07-2023 Note ORIGINAL EXAMINATION: TWO XRAY VIEWS OF THE CHEST 09/07/2023 12:40 am COMPARISON: Chest x-ray 02/10/2023. HISTORY: ORDERING SYSTEM PROVIDED HISTORY: Reason for Exam: Shortness of breath FINDINGS: Cardiomediastinal silhouette is within normal limits. No consolidation, pleural effusion, vascular congestion or pneumothorax. No acute osseous abnormality. IMPRESSION: No acute radiographic process. This is a preliminary report created by a resident Interpreted by: Willie Erwin MD Preliminary Report By: Nat Ambrocio Electronically signed By Willie Erwin MD Dictated Date: 09/07/2023 12:43:46 AM Prelim Date: 09/07/2023 12:47:19 AM Sign Date: 09/07/2023 2:03:11 AM Ordering Provider: [facility] 09-06-2023 HCoV 229E RNA MARITO+non-probe Ql (Nph) Not Detected *NA* (09/06/23 11:56 PM) [facility]/Sero SS 09-05-2023 History of Presen t illness Narrative This note was created using [employer]. Subjective Andressa Gerber is a 38 year old female. 38 year old female with PMH migraines presents for illness. Acute onset of symptoms was 3 days ago +cough +fatigue +sore throat +body aches +headache +reduced PO intake +N/V +shortness of breath with coughing Denies SOB at rest. Denies dyspnea Denies abdominal pain. Denies tobacco usage +ill contacts The history is provided by the patient. No shuttle truck driver was used. URI She complains of cough. There is no chest tightness, difficulty breathing, frequent throat clearing, hemoptysis, hoarse voice, shortness of breath, sputum production or wheezing. This is a new problem. The current episode started in the past 7 days. The problem occurs constantly. The problem has been unchanged. The cough is non-productive. Associated symptoms include appetite change, a fever, headaches, malaise/fatigue, myalgias, nasal congestion, rhinorrhea, sneezing and a sore throat. Pertinent negatives include no chest pain, dyspnea on exertion, ear congestion, ear pain, heartburn, orthopnea, PND, postnasal drip, sweats, trouble swallowing or weight loss. Her symptoms are aggravated by nothing. Her symptoms are alleviated by nothing. She reports no improvement on treatment. There are no known risk factors for lung disease. There is no history of asthma, bronchiectasis, bronchitis, COPD, emphysema or pneumonia. No past medical history on file. No past surgical history on file. ALLERGIES Ciprofloxacin MEDICATIONS ondansetron orally disintegrating (ZOFRAN ODT) 4 mg disintegrating tablet Take by mouth. predniSONE (DELTASONE) 10 mg tablet Take 10 mg by mouth as needed. meclizine (ANTIVERT) 25 mg tab Take 1 tablet by mouth three times daily. PNV no.95/ferrous fum/folic ac ( ORAL) Take by mouth. (Patient not taking: Reported on 09/05/2023) amitriptyline (ELAVIL) 25 mg tablet Take 25 mg by mouth daily at bedtime. (Patient not taking: Reported on 12/31/2021 ) ibuprofen (MOTRIN) 600 mg tablet Take 1 tablet by mouth every 8 hours as needed for Pain. (Patient not taking: Reported on 11/21/2019 ) NORGESTIMATE-ETHINYL ESTRADIOL (SPRINTEC, 28, ORAL) Take by mouth. (Patient not taking: Reported on 12/31/2021 ) No family history on file. Social History Tobacco Use Smoking status: Never Smokeless tobacco: Never Review of Systems Constitutional: Positive for appetite change, fever and malaise/fatigue. Negative for weight loss. HENT: Positive for rhinorrhea, sneezing and sore throat. Negative for ear pain, hoarse voice, postnasal drip and trouble swallowing. Respiratory: Positive for cough. Negative for hemoptysis, sputum production, shortness of breath and wheezing. Cardiovascular: Negative for chest pain, dyspnea on exertion and PND. Gastrointestinal: Negative for abdominal pain, diarrhea, heartburn, nausea and vomiting. Musculoskeletal: Positive for myalgias. Negative for arthralgias and back pain. Skin: Negative for color change, pallor, rash and wound. Allergic/Immunologic: Negative for environmental allergies, food allergies and immunocompromised state. Neurological: Positive for headaches. Negative for dizziness and facial asymmetry. Hematological: Negative for adenopathy. Does not bruise/bleed easily. Psychiatric/Behavioral: Negative for agitation and behavioral problems. Objective BP 104/78 Pulse 83 Temp 37.1 C (98.8 F) Resp 21 Wt 87.1 kg (192 lb) LMP 09/07/2017 (Exact Date) SpO2 98% BMI 32.20 kg/m Physical Exam Vitals and nursing note reviewed. Constitutional: General: She is not in acute distress. Appearance: Normal appearance. She is normal weight. She is not ill-appearing, toxic-appearing or diaphoretic. HENT: Head: Normocephalic and atraumatic. Right Ear: Ear canal and external ear normal. Left Ear: Ear canal and external ear normal. Nose: Nose normal. No congestion or rhinorrhea. Mouth/Throat: Mouth: Mucous membranes are moist. Pharynx: Posterior oropharyngeal erythema present. No oropharyngeal exudate. Eyes: General: Right eye: No discharge. Left eye: No discharge. Extraocular Movements: Extraocular movements intact. Conjunctiva/sclera: Conjunctivae normal. Pupils: Pupils are equal, round, and reactive to light. Cardiovascular: Rate and Rhythm: Normal rate and regular rhythm. Pulses: Normal pulses. Heart sounds: Normal heart sounds. No murmur heard. No friction rub. Pulmonary: Effort: Pulmonary effort is normal. No respiratory distress. Breath sounds: Normal breath sounds. No stridor. No wheezing, rhonchi or rales. Chest: Chest wall: No tenderness. Abdominal: General: Abdomen is flat. There is no distension. Palpations: Abdomen is soft. There is no mass. Tenderness: There is no abdominal tenderness. There is no right CVA tenderness, left CVA tenderness, guarding or rebound. Hernia: No hernia is present. Musculoskeletal: General: No swelling, tenderness, deformity or signs of injury. Normal range of motion. Cervical back: Normal range of motion and neck supple. No rigidity. Right lower leg: No edema. Left lower leg: No edema. Lymphadenopathy: Cervical: Cervical adenopathy present. Skin: General: Skin is warm and dry. Coloration: Skin is not jaundiced or pale. Findings: No bruising, erythema, lesion or rash. Neurological: General: No focal deficit present. Mental Status: She is alert and oriented to person, place, and time. Cranial Nerves: No cranial nerve deficit. Sensory: No sensory deficit. Motor: No weakness. Coordination: Coordination normal. Gait: Gait normal. Psychiatric: Mood and Affect: Mood normal. Behavior: Behavior normal. Thought Content: Thought content normal. Judgment: Judgment normal. Assessment and Plan ASSESSMENT/PLAN: 1. URI, acute - ICD9: 465.9, ICD10: J06.9 X 3 days No red flags - Group A strep molecular testing negative - Symptomatic treatment with prn analgesia - Supportive care with fluids and rest - The patient may also use OTC cough and cold meds as needed, warm salt water gargles, throat lozenges and/or OTC throat spray as needed, and nasal saline gtts and suction prn. - Follow up in 3-5 days if symptoms persist or sooner if worsening of symptoms - STREP A MOLECULAR (POC) - COVID & INFLUENZA A/B & RSV NAAT, ROUTINE Segun Marshall APRN.DOCK GRADER documented in this encounter [facility] 01-31-2023 Instructions Manuel Jimenez APRN.CNP - 01/31/2023 1:45 PM EDT [facility] PATIENT INFO PHARYNGITIS OVERVIEW A sore throat (pharyngitis) is a common problem, and usually is caused by a viral or bacterial infection. Sore throat usually resolves on its own without complications in adults, although it is important to know when to seek medical attention. Viruses can cause a sore throat and other upper respiratory infections, such as the common cold. Sore throat caused by a virus is not treated with antibiotics, but instead may be treated with rest, pain medication, and other therapies aimed at relieving symptoms. Strep throat is a particular kind of pharyngitis that is caused by a bacterium known as group A streptococcus (GAS). Strep throat is treated with a course of antibiotics. SORE THROAT SYMPTOMS Viral pharyngitis -- Most people with a sore throat have a virus. The most common viruses are those that cause upper respiratory infections, such as the common cold. Symptoms of a viral infection can include: A runny or congested nose Irritation or redness of the eyes Cough, hoarseness, or soreness in the roof of the mouth Some viruses cause a fever and can make you feel quite ill. Strep throat -- Approximately 10 percent of adults with a sore throat have strep throat. Signs and symptoms of strep throat include the following: Pain in the throat Fever (temperature greater than 100.4 F or 38 C) Enlarged lymph glands in the neck White patches of pus on the side or back of the throat No cough, runny nose, or irritation/redness of the eyes Other infections -- Many other less common but more serious infections can cause a sore throat, including mononucleosis (mono), influenza (the flu), N. gonococcus (gonorrhea), human immunodeficiency virus (HIV), and others. When to seek urgent help -- See your doctor or nurse immediately if you have a sore throat along with any of the following: Difficulty breathing Skin rash Drooling because you cannot swallow Swelling of the neck or tongue Stiff neck or difficulty opening the mouth SORE THROAT DIAGNOSIS Most people with a sore throat get better without treatment. There is no specific treatment for a sore throat caused by usual cold viruses. Is it strep or not? -- A combination of symptoms (fever, enlarged glands in the neck, white patches on your tonsils, and no cough) can help in determining if you have strep. If you have two or more symptoms, a rapid test or throat culture may be done. People with fewer than two symptoms usually do not need testing or treatment for strep throat. Rapid test -- The rapid test determines if there are streptococcus bacteria on a throat swab. The test can be done in a clinician's office and the results are available within a few minutes. The test is accurate in most cases, although a small percentage of tests are falsely negative (the bacteria are present but the test is negative). Throat culture -- A throat culture involves swabbing the throat, sending the swab to a laboratory, and waiting 24 to 48 hours for the results. Throat cultures are slightly more accurate than the rapid test. TREATMENT OF SORE THROAT Sore throat treatment -- Antibiotics do not help throat pain caused by a virus and are not recommended. Sore throat caused by viral infections usually lasts four to five days. During this time, treatments to reduce pain may be helpful. Several therapies can help to relieve throat pain. Pain medication -- You can treat your throat pain with a mild pain reliever such as acetaminophen (Tylenol ) or a non-steroidal anti-inflammatory agent such as ibuprofen or naproxen (Motrin or Aleve ). Oral rinses -- Salt-water gargles are an old stand-by for throat pain. It is not clear that salt water works to relieve pain, but it is unlikely to be harmful. Most recipes suggest 1/4 to 1/2 teaspoon of salt per one cup (8 ounces) of warm water. Sprays -- Sprays containing topical anesthetics (eg, benzocaine, phenol) are available to treat sore throat. However, such sprays are no more effective than sucking on hard candy. Lozenges -- A variety of lozenges (cough drops) are available to treat throat pain or relieve dryness. However, it is not clear that lozenges work any better than other forms of hard candy, which are generally less expensive. Other treatments -- Other treatments that may help with throat pain include sipping warm beverages (eg, honey or lemon tea, chicken soup), cold beverages, or eating cold or frozen desserts (eg, ice cream, popsicles). Alternative therapies -- [employer] food stores, vitamin outlets, and Internet Web sites offer alternative treatments for relief of sore throat pain. We do not recommend these type of treatments due to the risks of contamination with pesticides/herbicides, inaccurate labeling and dosing information, and a lack of studies showing that these treatments are safe and effective. Strep throat -- Although strep throat typically resolves on its own within two to five days, treatment with antibiotics is recommended for adults whose rapid test or throat culture is positive for strep throat. Penicillin, or an antibiotic related to penicillin, is the treatment of choice for strep throat. It is usually given in pill or liquid form two to four times per day for 10 days. A one time injection of penicillin is also available. People who are allergic to penicillin are given an alternate antibiotic. It is important to finish the entire course of treatment to completely eliminate the infection. If symptoms do not begin to improve or worsen by three days of antibiotic treatment, you should see your doctor or nurse again. Return to work/school -- If you have been diagnosed with strep throat, stay home from work or school until you have completed 24 hours of antibiotics. Within 24 hours of beginning antibiotic treatment, you will feel better and will be less contagious [1]. If you have a sore throat (not diagnosed as strep), you may participate in your usual activities as soon as you feel well. SORE THROAT PREVENTION Hand washing is an essential and highly effective way to prevent the spread of infection. Wet your hands with water and plain soap, and rub them together for 15 to 30 seconds. Pay special attention to the fingernails, between the fingers, and the wrists. Rinse your hands thoroughly, and dry them with a clean towel. Alcohol-based hand rubs are a good alternative for disinfecting hands if a sink is not available. Hand rubs should be spread over the entire surface of hands, fingers, and wrists until dry, and may be used several times. These rubs can be used repeatedly without skin irritation or loss of effectiveness. Hand rubs are available as a liquid or wipe in small, portable sizes that are easy to carry in a pocket or handbag. When a sink is available, visibly soiled hands should be washed with soap and water. Wash your hands after coughing, blowing the nose, or sneezing. While it is not always possible to avoid being near a person who is sick, avoiding touching your eyes, nose, or mouth to prevent the spread of infection. In addition, tissues should be used to cover the mouth when sneezing or coughing. These used tissues should be disposed of promptly. Sneezing/coughing into your sleeve (at the inner elbow) is another way to contain sprays of saliva and secretions and will not contaminate your hand documented in this encounter [facility] 01-31-2023 History of Presen t illness Narrative Subjective HPI Nontoxic-appearing female presents urgent care chief complaint sore throat. Duration of symptoms 1 week. Associated symptoms sore throat. Did have a cough and nasal congestion earlier in the week that has dissipated. States son was sick with similar signs symptoms. His strep test was negative. Presents today for evaluation for possible strep pharyngitis. Has not used any OTC medications. Denies any difficulty swallowing handling secretions decreased range of motion of neck. Denies any fever body aches chills productive cough chest pain shortness of breath pleuritic pain hemoptysis nausea vomiting abdominal pain change in bowel or bladder habits. Past medical history prescription medication use and allergies reviewed. Denies chance of . Is breast-feeding. .Patient presents with: Sore Throat: x 1 week History reviewed. No pertinent past medical history. History reviewed. No pertinent surgical history. ALLERGIES Ciprofloxacin MEDICATIONS PNV no.95/ferrous fum/folic ac ( ORAL) Take by mouth. amitriptyline (ELAVIL) 25 mg tablet Take 25 mg by mouth daily at bedtime. (Patient not taking: Reported on 12/31/2021 ) ibuprofen (MOTRIN) 600 mg tablet Take 1 tablet by mouth every 8 hours as needed for Pain. (Patient not taking: Reported on 11/21/2019 ) NORGESTIMATE-ETHINYL ESTRADIOL (SPRINTEC, 28, ORAL) Take by mouth. (Patient not taking: Reported on 12/31/2021 ) History reviewed. No pertinent family history. Social History Tobacco Use Smoking status: Never Smokeless tobacco: Never BP 122/64 Pulse 86 Temp 36.4 C (97.5 F) Resp 16 Wt 81.6 kg (180 lb) LMP 09/07/2017 (Exact Date) SpO2 98% BMI 30.19 kg/m Review of Systems Constitutional: Negative for chills, fever and malaise/fatigue. HENT: Positive for sore throat. Negative for congestion, ear discharge, ear pain and sinus pain. Eyes: Negative for blurred vision, pain, discharge and redness. Respiratory: Negative for cough, hemoptysis, sputum production, shortness of breath, wheezing and stridor. Cardiovascular: Negative for chest pain. Gastrointestinal: Negative for abdominal pain, diarrhea, nausea and vomiting. Musculoskeletal: Negative for myalgias. Skin: Negative for itching and rash. Neurological: Negative for dizziness and headaches. Objective Physical Exam Constitutional: General: She is not in acute distress. Appearance: She is not diaphoretic. HENT: Head: Normocephalic. Jaw: No trismus, tenderness, swelling or pain on movement. Right Ear: Tympanic membrane, ear canal and external ear normal. Left Ear: Tympanic membrane, ear canal and external ear normal. Nose: Nose normal. Mouth/Throat: Lips: [place]. Mouth: Mucous membranes are moist. Pharynx: Oropharynx is clear. Uvula midline. Posterior oropharyngeal erythema present. No pharyngeal swelling, oropharyngeal exudate or uvula swelling. Eyes: Conjunctiva/sclera: Conjunctivae normal. Pupils: Pupils are equal, round, and reactive to light. Cardiovascular: Rate and Rhythm: Normal rate and regular rhythm. Heart sounds: Normal heart sounds. Pulmonary: Effort: Pulmonary effort is normal. No tachypnea, accessory muscle usage or respiratory distress. Breath sounds: Normal breath sounds. No stridor. No wheezing, rhonchi or rales. Abdominal: Palpations: Abdomen is soft. Tenderness: There is no abdominal tenderness. There is no guarding or rebound. Musculoskeletal: Cervical back: Normal range of motion and neck supple. No erythema, rigidity or tenderness. No pain with movement. Normal range of motion. Lymphadenopathy: Cervical: No cervical adenopathy. Skin: General: Skin is warm and dry. Neurological: Mental Status: She is alert and oriented to person, place, and time. ASSESSMENT/PLAN: 1. Sore throat - ICD9: 462, ICD10: J02.9 - STREP A MOLECULAR (POC) Strep test negative. Diagnosed with viral pharyngitis. Treat conservatively at this time. No evidence of bacterial flexion on exam. Patient was educated on supportive therapies. Patient will follow up with primary care provider as needed. Patient was instructed to immediately proceed to emergency room for any new, worsening, or symptoms lasting longer than anticipated. The patient's clinical presentation is otherwise unremarkable at this time. Based on exam and clinical finding, the patient is stable for discharge. Plan of care was discussed with patient. Patient verbalizes understanding and agrees to plan of care. This note was generated using [employer] software. It may contain errors in wording, punctuation, or spelling. Manuel Jimenez APRN.TATY documented in this encounter [facility] 01-13-2023 History of Presen t illness Narrative This note was created using [employer]. Subjective Andressa Gerber is a 37 year old female. 37 year old female with no PMH presents for possible pink eye. Acute onset today Bilateral eyes +redness +drainage +itching. Denies accompanying URI sx Denies trauma or injury. Denies feelings of FB or grittiness. Denies visual disturbances Denies fever or chills. She had her son examined in clinic earlier in the week related to conjunctivitis Contact and glasses wearer. The history is provided by the patient. No shuttle truck driver was used. Conjunctivitis The current episode started today. The onset was sudden. The problem occurs continuously. The problem has been unchanged. The problem is mild. Nothing relieves the symptoms. Nothing aggravates the symptoms. Associated symptoms include eye itching, eye discharge and eye redness. Pertinent negatives include no fever, no decreased vision, no double vision, no photophobia, no abdominal pain, no diarrhea, no vomiting, no congestion, no ear discharge, no ear pain, no headaches, no hearing loss, no mouth sores, no rhinorrhea, no sore throat, no stridor, no swollen glands, no muscle aches, no neck pain, no cough, no wheezing, no rash and no eye pain. Both eyes are affected. The eyelid exhibits no abnormality. She has been Behaving normally. There were sick contacts at home. She has received no recent medical care. No past medical history on file. No past surgical history on file. ALLERGIES Ciprofloxacin MEDICATIONS tobramycin (TOBREX) 0.3 % ophthalmic solution Use 2 Drops in both eyes three times daily for 7 days. PNV no.95/ferrous fum/folic ac ( ORAL) Take by mouth. (Patient not taking: Reported on 07/13/2022) amitriptyline (ELAVIL) 25 mg tablet Take 25 mg by mouth daily at bedtime. (Patient not taking: Reported on 12/31/2021 ) ibuprofen (MOTRIN) 600 mg tablet Take 1 tablet by mouth every 8 hours as needed for Pain. (Patient not taking: Reported on 11/21/2019 ) NORGESTIMATE-ETHINYL ESTRADIOL (SPRINTEC, 28, ORAL) Take by mouth. (Patient not taking: Reported on 12/31/2021 ) No family history on file. Social History Tobacco Use Smoking status: Never Smokeless tobacco: Never Review of Systems Constitutional: Negative for activity change, appetite change, chills and fever. HENT: Negative for congestion, ear discharge, ear pain, hearing loss, mouth sores, rhinorrhea, sinus pressure, sinus pain and sore throat. Eyes: Positive for discharge, redness and itching. Negative for double vision, photophobia and pain. Respiratory: Negative for apnea, cough, choking, chest tightness, wheezing and stridor. Cardiovascular: Negative for chest pain, palpitations and leg swelling. Gastrointestinal: Negative for abdominal pain, diarrhea and vomiting. Musculoskeletal: Negative for neck pain. Skin: Negative for color change, pallor, rash and wound. Allergic/Immunologic: Negative for environmental allergies, food allergies and immunocompromised state. Neurological: Negative for dizziness, facial asymmetry and headaches. Hematological: Negative for adenopathy. Does not bruise/bleed easily. Psychiatric/Behavioral: Negative for agitation and behavioral problems. Objective BP 122/72 Pulse 79 Temp 36.6 C (97.8 F) Resp 21 Wt 86.5 kg (190 lb 12.8 oz) LMP 09/07/2017 (Exact Date) SpO2 98% BMI 32.00 kg/m Physical Exam Vitals and nursing note reviewed. Constitutional: General: She is not in acute distress. Appearance: Normal appearance. She is normal weight. She is not ill-appearing, toxic-appearing or diaphoretic. HENT: Head: Normocephalic and atraumatic. Right Ear: Ear canal and external ear normal. Left Ear: Ear canal and external ear normal. Nose: Nose normal. No congestion or rhinorrhea. Mouth/Throat: Mouth: Mucous membranes are moist. Pharynx: No oropharyngeal exudate or posterior oropharyngeal erythema. Eyes: General: Right eye: Discharge present. Left eye: Discharge present. Extraocular Movements: Extraocular movements intact. Pupils: Pupils are equal, round, and reactive to light. Comments: Bilateral conjunctiva injected EOMs intact. Marginal eyelid debris +red reflex Cardiovascular: Rate and Rhythm: Normal rate and regular rhythm. Pulses: Normal pulses. Heart sounds: Normal heart sounds. No murmur heard. No friction rub. Pulmonary: Effort: Pulmonary effort is normal. No respiratory distress. Breath sounds: Normal breath sounds. No stridor. No wheezing, rhonchi or rales. Chest: Chest wall: No tenderness. Abdominal: General: Abdomen is flat. There is no distension. Palpations: Abdomen is soft. There is no mass. Tenderness: There is no abdominal tenderness. There is no right CVA tenderness, left CVA tenderness, guarding or rebound. Hernia: No hernia is present. Musculoskeletal: General: No swelling, tenderness, deformity or signs of injury. Normal range of motion. Cervical back: Normal range of motion and neck supple. No rigidity. Right lower leg: No edema. Left lower leg: No edema. Lymphadenopathy: Cervical: No cervical adenopathy. Skin: General: Skin is warm and dry. Capillary Refill: Capillary refill takes less than 2 seconds. Coloration: Skin is not jaundiced or pale. Findings: No bruising, erythema, lesion or rash. Neurological: General: No focal deficit present. Mental Status: She is alert and oriented to person, place, and time. Cranial Nerves: No cranial nerve deficit. Sensory: No sensory deficit. Motor: No weakness. Coordination: Coordination normal. Gait: Gait normal. Psychiatric: Mood and Affect: Mood normal. Behavior: Behavior normal. Thought Content: Thought content normal. Judgment: Judgment normal. Assessment and Plan ASSESSMENT/PLAN: 1. Conjunctivitis of both eyes, unspecified conjunctivitis type - ICD9: 372.30, ICD10: H10.9 - see medication orders - course and contagiousness issues discussed, including hand washing. - Instructed to call if high fever, development of periorbital redness or swelling, eye pain, visual changes, concerns or if symptoms persist. Segun Marshall APRN.TATY Marshall APRN.TATY documented in this encounter [facility] 07-13-2022 History of Presen t illness Narrative CC: Patient presents with: Nasal Congestion: cough, chills, fatigue, and sore throat x 3 days HPI: Andressa Gerber is a 36 year old female who presents to the office with complaint of cough, nonproductive, sore throat, and chills for a few days. Symptoms are worsening Associated symptoms includes body aches and fatigue. Denies fever, nausea, vomiting , and diarrhea. Treatments tried include nothing so far. with no relief of symptoms. Sick contacts: unknown. History of asthma, frequent episodes of bronchitis, chronic bronchitis, bronchiectasis or COPD: No Smoker: No Seasonal/environmental allergies: No The ROS is otherwise negative. The patient's pmh, medications, allergies, and past visits are reviewed. PHYSICAL EXAM: BP 122/70 Pulse 118 Temp 37.1 C (98.7 F) Resp 18 Wt 81.2 kg (179 lb) LMP 09/07/2017 (Exact Date) SpO2 98% BMI 30.02 kg/m General appearance: alert, cooperative, pleasant, in no acute distress Head: Normocephalic Eyes: EOM's intact, conjunctiva pink and moist, no icterus, sclera white, non-injected Ears: Right ear: External ear/canal- Normal, TM - clear with good landmarks. Left ear: External ear/canal- Normal, TM - clear with good landmarks Oropharynx:moderate erythema, without exudates present Heart: Negative. RRR without obvious murmur, gallop, or rubs. No ectopy. Lungs: clear to auscultation, without rales or wheeze, good air exchange No past medical history on file. No past surgical history on file. ALLERGIES Ciprofloxacin MEDICATIONS PNV no.95/ferrous fum/folic ac ( ORAL) Take by mouth. (Patient not taking: Reported on 07/13/2022) amitriptyline (ELAVIL) 25 mg tablet Take 25 mg by mouth daily at bedtime. (Patient not taking: Reported on 12/31/2021 ) ibuprofen (MOTRIN) 600 mg tablet Take 1 tablet by mouth every 8 hours as needed for Pain. (Patient not taking: Reported on 11/21/2019 ) NORGESTIMATE-ETHINYL ESTRADIOL (SPRINTEC, 28, ORAL) Take by mouth. (Patient not taking: Reported on 12/31/2021 ) No family history on file. Social History Tobacco Use Smoking status: Never Smokeless tobacco: Never ASSESSMENT/PLAN: 1. Sore throat - ICD9: 462, ICD10: J02.9 - STREP A MOLECULAR (POC) - negative Covid test pending Prescription instructions reviewed with patient as applicable. Potential red flag symptoms discussed with the patient. Reviewed appropriate action plan to take if red flag symptoms occur. Patient agreeable to treatment plan. Rhonda Montoya APRN.DOCK GRADER documented in this encounter [facility] 03-30-2022 Evaluation + Plan note Extrac katie from: Title:Clinical Document Author:CAROLINA RAZA MD Date:03/30/22 [place] ADMISSION HISTORY AN D PHYSICIAL CHIEF COMPLAINT: Admitted for elective induction of labor HISTORY OF PRESENT ILLNESS: 36-year-old 3 para 2 at 40 weeks estimated gestational age with uncomplicated . REVIEW OF SYSTEMS: No significant pertinent positives. Good movement. No signs or symptoms of spontaneous rupture membranes. No contractions. ACTIVE PROBLEMS: (10) AMA (advanced maternal age) multigravida 35+ ([id number]) Anxiety and depression (425793671) Anxiety in , antepartum ([id number]) Back pain, chronic (484284589) Hx of migraines (550454541) Obesity in (6086460019) Possible ([id number]) ([id number]) ([id number]) Spontaneous vaginal delivery ([id number]) MEDICATIONS: Active Inpt Meds: tetanus/diphth/pertuss (Tdap) adult/adol (Boostrix (Tdap)) Start: 03/30/22 7:00:00 EDT, Dose = 0.5 mL, Susp, Intramuscular, Vaccine, 03/30/22 6:54:00 EDT Active PRN Meds: Lactated Ringers Infusion (LR 500 mL Bolus) Start: 03/29/22 22:27:00 EDT, Dose = 500 mL, Soln, IV Bolus, AsDirected, PRN, Other (see order comments), Rate: 500 mL/hr, hour(s), 03/29/22 22:27:00 EDT RHo (D) immune globulin (Rhophylac) Start: 03/30/22 6:54:00 EDT, Dose = 300 mcg, = 2 mL, Intramuscular, AsDirected, PRN, if Rh factor neg per policy, 1 dose(s), Stop: Limited # of times, 03/30/22 6:54:00 EDT acetaminophen-hydrocodone ([place] 325- 5 mg oral tablet) Start: 03/30/22 6:54:00 EDT, Dose = 1 tab(s), Tab, Oral, q6h, PRN, Pain, scale 4-6, 03/30/22 6:54:00 EDT acetaminophen-hydrocodone ([place] 325- 5 mg oral tablet) Start: 03/30/22 6:54:00 EDT, Dose = 2 tab(s), Tab, Oral, q6h, PRN, Pain, scale 7-10, 03/30/22 6:54:00 EDT acetaminophen (Tylenol) Start: 03/30/22 6:54:00 EDT, Dose = 650 mg, = 2 tab(s), Oral, q6h, PRN, Pain, scale 1-3, 03/30/22 6:54:00 EDT benzocaine topical (Dermoplast topical spray) Start: 03/30/22 6:54:00 EDT, Dose = 1 spray(s), [place], Perineum, q1h, PRN, Other (see order comments), 03/30/22 6:54:00 EDT benzocaine topical (Americaine Hemorrhoidal 20% rectal ointment) Start: 03/30/22 6:54:00 EDT, Dose = 1 yolanda, Ointment, Perineum, AsDirected, PRN, to perineal sutures, 03/30/22 6:54:00 EDT bisacodyl (Dulcolax Laxative) Start: 03/30/22 6:54:00 EDT, Dose = 10 mg, = 1 supp, Rectal, qDay, PRN, Constipation, 03/30/22 6:54:00 EDT carboprost (Hemabate) Start: 03/29/22 22:27:00 EDT, Dose = 250 mcg, = 1 mL, Intramuscular, Once, PRN, Other (see order comments), 03/29/22 22:27:00 EDT carboprost (Hemabate) Start: 03/30/22 6:54:00 EDT, Dose = 250 mcg, = 1 mL, Intramuscular, Once, PRN, Other (see order comments), 03/30/22 6:54:00 EDT citric acid-sodium citrate (Bicitra) Start: 03/29/22 22:27:00 EDT, Dose = 30 mL, Soln, Oral, AsDirected, PRN, Gastric Upset, 03/29/22 22:27:00 EDT citric acid-sodium citrate (Bicitra) Start: 03/30/22 6:54:00 EDT, Dose = 30 mL, Soln, Oral, AsDirected, PRN, Gastric Upset, 03/30/22 6:54:00 EDT docusate (Colace) Start: 03/30/22 6:54:00 EDT, Dose = 100 mg, = 1 cap(s), Oral, BID, PRN, Constipation, 03/30/22 6:54:00 EDT glycerin-witch sam topical (glycerin-witch sam 50% topical pad) Start: 03/30/22 6:54:00 EDT, Dose = 1 yolanda, Pad, Topical, AsDirected, PRN, Hemorrhoids, 03/30/22 6:54:00 EDT hydrocortisone topical (Anusol-HC 25 mg rectal suppository) Start: 03/30/22 6:54:00 EDT, Dose = 25 mg, = 1 supp, Rectal, BID, PRN, hemorrhoidal discomfort, 03/30/22 6:54:00 EDT hydrocortisone-pramoxine topical (Analpram-HC 2.5%-1% rectal cream) Start: 03/30/22 6:54:00 EDT, Dose = 1 yolanda, Cream, Perineum, q1h, PRN, hemorrhoidal or perineal discomfort, 03/30/22 6:54:00 EDT ibuprofen (Motrin) Start: 03/30/22 6:54:00 EDT, Dose = 600 mg, = 1 tab(s), Oral, q6h, PRN, uterine cramping, 03/30/22 6:54:00 EDT lanolin topical (Lansinoh for Breast Feeding Mothers) Start: 03/30/22 6:54:00 EDT, 7 g, Dose = 1 EA, Topical, AsDirected, PRN, Other (see order comments), Apply to: nipple area, Ointment, 03/30/22 6:54:00 EDT lidocaine (Xylocaine HCl 1% injectable solution) Start: 03/29/22 22:27:00 EDT, Dose = 20 mg, = 2 mL, Perineum, AsDirected, PRN, to perineal sutures, 1 dose(s), Stop: Limited # of times, 03/29/22 22:27:00 EDT lidocaine (Xylocaine HCl 1% injectable solution) Start: 03/30/22 6:54:00 EDT, Dose = 20 mg, = 2 mL, Perineum, AsDirected, PRN, to perineal sutures, 1 dose(s), Stop: Limited # of times, 03/30/22 6:54:00 EDT methylergonovine (Methergine) Start: 03/29/22 22:27:00 EDT, Dose = 0.2 mg, = 1 mL, Intramuscular, Once, PRN, Other (see order comments), 03/29/22 22:27:00 EDT methylergonovine (Methergine) Start: 03/30/22 6:54:00 EDT, Dose = 0.2 mg, = 1 mL, Intramuscular, Once, PRN, Other (see order comments), 03/30/22 6:54:00 EDT miSOPROStol (Cytotec) Start: 03/29/22 22:27:00 EDT, Dose = 1,000 mcg, = 5 tab(s), Rectal, Once, PRN, Other (see order comments), 0, 03/29/22:27:00 EDT miSOPROStol (Cytotec) Start: 03/30/22 6:54:00 EDT, Dose = 1,000 mcg, Rectal, Once, PRN, Other (see order comments), 03/30/22 6:54:00 EDT nalbuphine (Nubain) Start: 03/29/22 22:27:00 EDT, Dose = 10 mg, = 1 mL, IV Push, q2h, PRN, Pain, 03/29/22 22:27:00 EDT naloxone (Narcan) Start: 03/30/22 5:26:00 EDT, Dose = 0.1 mg, = 0.25 mL, IV Push, AsDirected, PRN, Control symptoms, 03/30/22 5:26:00 EDT naloxone (Narcan) Start: 03/30/22 5:26:00 EDT, Dose = 0.4 mg, = 1 mL, IV Push, AsDirected, PRN, Control symptoms, 03/30/22 5:26:00 EDT ondansetron (Zofran) Start: 03/29/22:27:00 EDT, Dose = 4 mg, = 2 mL, IV Push, q4h, PRN, Nausea, 03/29/22 22:27:00 EDT oxytocin (Pitocin) Start: 03/29/22 22:27:00 EDT, Dose = 20 unit(s), = 2 mL, Intramuscular, Once, PRN, Other (see order comments), 03/29/22 22:27:00 EDT oxytocin (Pitocin) Start: 03/30/22 6:54:00 EDT, Dose = 20 unit(s), = 2 mL, Intramuscular, Once, PRN, Other (see order comments), 03/30/22 6:54:00 EDT simethicone (Mylicon) Start: 03/30/22 6:54:00 EDT, Dose = 80 mg, = 1 tab(s), Chewed, TID, PRN, Dyspepsia, 03/30/22 6:54:00 EDT sodium biphosphate-sodium phosphate (Fleet Enema) Start: 03/30/22 6:54:00 EDT, Dose = 133 mL, Enema, Rectal, qDay, PRN, Constipation, 03/30/22 6:54:00 EDT terbutaline (Brethine) Start: 03/29/22 22:27:00 EDT, Dose = 0.25 mg, = 0.25 mL, Subcutaneous, AsDirected, PRN, Other (see order comments), 03/29/22 22:27:00 EDT terbutaline (Brethine) Start: 03/29/22 22:32:00 EDT, Dose = 0.25 mg, = 0.25 mL, Subcutaneous, AsDirected, PRN, Control symptoms, directed by physician for episode of tachysystole resulting in prolonged bradycardia (lasting greater than 3 minutes) and/or late decelerat... zolpidem (Ambien) Start: 03/30/22 6:54:00 EDT, Dose = 5 mg, = 1 tab(s), Oral, qHS, PRN, Sleep, 03/30/22 6:54:00 EDT One Time Meds: (Completed) bupivacaine (bupivacaine (ANES)) Epidural, Once, Stop: 03/30/22 5:28:00 EDT Active IV Meds: Lactated Ringers Infusion 1,000 mL (LR 1,000 mL) Start: 03/29/22 22:27:00 EDT, Rate: 125 mL/hr, 03/29/22 22:27:00 EDT bupivacaine-fentanyl 100 mL (Marcaine-Sublimaze 0.125%-2 mcg/mL EPIDURAL 100 mL 100 mL) start date 03/30/22 5:26:00 EDT, 100 mL, Epidural, 11 mL/hr, 2 mL Demand Dose, 10 minute Lockout, 18 mL/hr Max hourly rate, 03/30/22 5:26:00 EDT oxytocin 20 unit(s) + LR Premix Diluent 1,000 mL (Oxytocin for IV (mL/hr) 20 unit(s) + LR Premix Diluent 1,000 mL) Start: 03/29/22 22:27:00 EDT, Rate: 999 mL/hr, 03/29/22 22:27:00 EDT oxytocin 20 unit(s) + LR Premix Diluent 1,000 mL (Oxytocin for IV (mL/hr) 20 unit(s) + LR Premix Diluent 1,000 mL) Start: 03/30/22 6:54:00 EDT, Rate: 125 mL/hr, 03/30/22 6:54:00 EDT oxytocin 20 unit(s) [2 munit/min] + LR Premix Diluent 1,000 mL (Oxytocin for IV (munit/min) 20 unit(s) [2 munit/min] + LR Premix Diluent 1,000 mL) Start: 03/29/22 22:32:00 EDT, Start at 2 milliunits/minute Piggyback at closest IV port via infusion pump. Increase rate 2 milliunits every 45 minutes until contractions are no closer than every 2 minutes. Do not exceed 30 milliunits/minute, Rate: 6... ALLERGIES: (1) ciprofloxacin FAMILY HISTORY: No significant family history related to this admission SOCIAL HISTORY: Non-smoker no toxic habits. Stable home. PHYSICAL EXAM: VITALS: [id number](kg) 03/30 05:24--107/6177--98--03/29 91.2 03/30 05:19--118/7179--97-- 03/30 05:14--115/8178--98-- 03/30 05:12--115/7979--98-- 03/30 04:[id number]------ 24 Hr Tmax: 36.7 at 03/29 22:11 36 Hr Tmax: 36.7 at 03/29 22:11 Vital Signs are the last 5 in the past 48 hours. Weights display the last 5 within 7 days. Initial Wt: 03/29 91.2 kg 201 lb Current Wt: 05/22 91.2 kg 201 lb GENERAL: Appears well HEENT: Normocephalic CARDIOVASCULAR: Regular rate and rhythm normal blood pressure RESPIRATORY: Clear bilaterally ABDOMEN: Gravid consistent with dating vertex presentation EXREMETIES: No significant edema NEUROLOGICAL: Intact PSYCHIATRIC: No signs of depression or anxiety LABS: 36hr Labs 03/29 2316 ABO/Rh InterpSee Flowsheet Antibody ScreenSee Flowsheet Hct35.9L Hgb12.3 MCH29.6 MCHC34.3 MCV86.2 MPV10.5H [id number] RBC4.16L RDW13.5 WBC9.70 Lymphocyte %19.4 Monocyte %5.6 Neutrophil %74.2 Eosinophil %0.6 Basophil %0.2 Neutrophil, Absolute7.20H Lymphocyte, Absolute1.90 Monocyte, Absolute0.50 Eosinophil, Absolute0.10 Basophil, Absolute0.00 DIAGNOSTICS: Category 1 heart rate tracing IMPRESSION: Complicated term and multipara admitted for induction of labor. PLAN: Plan for Pitocin induction of labor. GBS is negative. Epidural if desired. If no spontaneous rupture membranes plan AROM when appropriate. Future Appointments Appointment Date:04/20/2022 10:30:00 AM Scheduled Provider:CAROLINA RAZA MD Location:[facility] Appointment Type:[facility] Future Scheduled Tests Laboratory* Glucose Tolerance Test 3 Hour (AO) 01/06/22 * Urine Culture 08/04/21 * Urine Drug Screen 08/04/21 [facility] 05-23-2022 Hospital Discharge instructions Patient Education 03/30/2022 06:59:40 7b- Depression and Blues (08/2020)(CUSTOM) [place] Depression and Blues All mothers are at risk of developing depression or the " blues." These mood changes can occur right after giving , or they may occur many months after giving . blues or depression can be mild or severe. Additionally, depression can goaway rather quickly, or it can be a long-term condition. CAUSES Raised hormone levels and the rapid drop in those levels are thought to be a main cause of depression and blues. A number of hormones change during and after . Estrogenand progesterone usually decrease right after delivery. The levels of thyroid hormone and various cortisol steroids also rapidly drop. Other factors that play a role in these mood changes include major life events and genetics. RISK FACTORS If you have any of the following risks for blues or depression, know what symptoms to watch out for during the period. Risk factors that may increase the likelihood of getting blues or depression include: Having a personal or family history of depression. Having depression while being . Having premenstrual mood issues or mood issues related to oral contraceptives. Having a lot of life stress. Having marital conflict. Lacking a social support network. Having health problems, such as diabetes. SIGNS AND SYMPTOMS Symptoms of blues include: Brief changes in mood, such as going from extreme happiness to sadness. Decreased concentration. Difficulty sleeping. Crying spells, tearfulness. Irritability. Anxiety. Symptoms of depression typically begin within the first month after giving . These symptoms include: Difficulty sleeping or excessive sleepiness. Marked weight loss. Agitation. Feelings of worthlessness. Lack of interest in activity or food. psychosis is a very serious condition and can be dangerous. Fortunately, it is rare. Displaying any of the following symptoms is cause for immediate medical attention. Symptoms of psychosis include: Hallucinations and delusions. Bizarre or disorganized behavior. Confusion or disorientation. DIAGNOSIS A diagnosis is made by an evaluation of your symptoms. There are no medical or lab tests that lead to a diagnosis, but there are various questionnaires that a health care provider may use to identifythose with blues, depression, or psychosis. Often, a screening tool called the [place] Depression Scale is used to diagnose depression in the period. TREATMENT blues usually goes away on its own in 1 2 weeks. Social support is often all that is needed. You will be encouraged to get adequate sleep and rest. Occasionally, you may be given medicinesto help you sleep. depression requires treatment because it can last several months or longer if it is not treated. Treatment may include individual or group therapy, medicine, or both to address any social,physiological, and psychological factors that may play a role in the depression. Regular exercise, a healthy diet, rest, and social support may also be strongly recommended. psychosis is more serious and needs treatment right away. Hospitalization is often needed. HOME CARE INSTRUCTIONS Get as much rest as you can. Exercise regularly. Some women find yoga and walking to be beneficial. Eat a balanced and nourishing diet. Do little things that you enjoy. Have a cup of tea, take a bubble bath, read your favorite magazine, or listen to your favorite music. Avoid alcohol. Ask for help with chair inspector, cooking, grocery shopping, or running errands as needed. Do nottry to do everything. Talk to people close to you about how you are feeling. Get support from your partner, family members, and friends. Try to stay positive in how you think. Think about the things you are grateful for. Do not spend a lot of time alone. Only take wobr-ztm-sylzqnq or prescription medicine as directed by your health care provider. Keep all your appointments. Let your health care provider know if you have any concerns. SEEK MEDICAL CARE IF: You are having a reaction to or problems with your medicine. SEEK IMMEDIATE MEDICAL CARE IF: You have suicidal feelings. You think you may harm yourself or someone else. MAKE SURE YOU: Understand these instructions. Will watch your condition. Will get help right away if you are not doing well or get worse. Resource: [facility] Patient Information 2015 [facility]. This information is not intended to replace advicegiven to you by your health care provider. Make sure you discuss any questions you have with your health care provider. 03/30/2022 06:59:16 and Mastitis and Mastitis Mastitis is inflammation of the breast tissue. It can occur in women who are . This can make painful. Mastitis will sometimes go away on its own, especially if it is not caused by an infection (non-infectious mastitis). Your health care provider will help determine if medical treatment is needed. Treatment may be needed if the condition is caused by a bacterial infection (infectious mastitis). What are the causes? This condition is often associated with a blocked milkduct, which can happen when too much milk builds up in the breast. Causes of excess milk in the breast can include: Poor latch-on. If your baby is not latched onto the breast properly, he or she may not empty your breast completely while . Allowing too much time to pass between feedings. Wearing a bra or other clothing that is too tight. This puts extra pressure on the milk ducts so milk does not flow through them as it should. Milk remaining in the breast because it is overfilled (engorged). Stress and fatigue. Mastitis can also be caused by a bacterial infection. Bacteria may enter the breast tissue through cuts, cracks, or openings in the skin near the nipple area. Cracks in the skin are often caused whenyour baby does not latch on properly to the breast. What are the signs or symptoms? Symptoms of this condition include: Swelling, redness, tenderness, and pain in an area of the breast. This usually affects the upper part of the breast, toward the armpit region. In most cases, it affects only one breast. In some cases, it may occur on both breasts at the same time and affect a larger portion of breast tissue. Swelling of the glands under the arm on the same side. Fatigue, headache, and flu-like muscle aches. Fever. Rapid pulse. Symptoms usually last 2 to 5 days. Breast pain and redness are at their worst on day 2 and day 3, and they usually go away by day 5. If an infection is left to progress, a collection of pus (abscess)may develop. How is this diagnosed? This condition can be diagnosed based on your symptoms and a physical exam. You may also have tests, such as: Blood tests to determine if your body is fighting a bacterial infection. Mammogram or ultrasound tests to rule out other problems or diseases. Fluid tests. If an abscess has developed, the fluid in the abscess may be removed with a needle. The fluid may be analyzed to determine if bacteria are present. Breast milk may be cultured and tested for bacteria. How is this treated? This condition will sometimes go away on its own. Your health care provider may choose to wait 24 hours after first seeing you to decide whether treatment is needed. If treatment is needed, it may include: Strategies to manage . This includes continuing to breastfeed or pump in order to allow adequate milk flow, using breast massage, and applying heat or cold to the affected area. Self-care such as rest and increased fluid intake. Medicine for pain. Antibiotic medicine to treat a bacterial infection. This is usually taken by mouth. If an abscess has developed, it may be treated by removing fluid with a needle. Follow these instructions at home: Medicines Take wpcu-ujm-izvcquy and prescription medicines only as told by your health care provider. If you were prescribed an antibiotic medicine, take it as told by your health care provider. Do notstop taking the antibiotic even if you start to feel better. General instructions Do not wear a tight or underwire bra. Wear a soft, supportive bra. Increase your fluid intake, especially if you have a fever. Get plenty of rest. For : Continue to empty your breasts as often as possible, either by or using an electric breast pump. This will lower the pressure and the pain that comes with it. Ask your health care provider if changes need to be made to your or pumping routine. Keep your nipples clean and dry. During , empty the first breast completely before going to the other breast. If your baby is not emptying your breasts completely, use a breast pump to empty your breasts. Use breast massage during feeding or pumping sessions. If directed, apply moist heat to the affected area of your breast right before or pumping. Use the heat source that your health care provider recommends. If directed, put ice on the affected area of your breast right after or pumping: ?Put ice in a plastic bag. ?Place a towel between your skin and the bag. ?Leave the ice on for 20 minutes. If you go back to work, pump your breasts while at work to stay in time with your nursing schedule. Do not allow your breasts to become engorged. Contact a health care provider if: You have pus-like discharge from the breast. You have a fever. Your symptoms do not improve within 2 days of starting treatment. Your symptoms return after you have recovered from a breast infection. Get help right away if: Your pain and swelling are getting worse. You have pain that is not controlled with medicine. You have a red line extending from the breast toward your armpit. Summary Mastitis is inflammation of the breast tissue. It is often caused by a blocked milk duct or bacteria. This condition may be treated with hot and cold compresses, medicines, self- care, and certain strategies. If you were prescribed an antibiotic medicine, take it as told by your health care provider. Do notstop taking the antibiotic even if you start to feel better. Continue to empty your breasts as often as possible either by or using an electric breast pump. This information is not intended to replace advice given to you by your health care provider. Make sure you discuss any questions you have with your health care provider. Document Released: 02/19/2006 Document Revised: 07/14/2019 Document Reviewed: 10/26/2017 [employer] Patient Education 2020 [employer] 03/30/2022 06:58:54 Vaginal Delivery Vaginal Delivery Vaginal delivery means that you give by pushing your baby out of your canal (vagina). Ateam of health care providers will help you before, during, and after vaginal delivery. experiences are unique for every woman and every , and experiences vary depending on whereyou choose to give . What happens when I arrive at the center or hospital? Once you are in labor and have been admitted into the hospital or center, your health care provider may: Review your history and any concerns that you have. Insert an IV into one of your veins. This may be used to give you fluids and medicines. Check your blood pressure, pulse, temperature, and heart rate (vital signs). Check whether your bag of water (amniotic sac) has broken (ruptured). Talk with you about your plan and discuss pain control options. Monitoring Your health care provider may monitor your contractions (uterine monitoring) and your baby's heart rate ( monitoring). You may need to be monitored: Often, but not continuously (intermittently). All the time or for long periods at a time (continuously). Continuous monitoring may be needed if: ?You are taking certain medicines, such as medicine to relieve pain or make your contractions stronger. ?You have or labor complications. Monitoring may be done by: Placing a special stethoscope or a handheld monitoring device on your abdomen to check your baby's heartbeat and to check for contractions. Placing monitors on your abdomen (external monitors) to record your baby's heartbeat and the frequency and length of contractions. Placing monitors inside your uterus through your vagina (internal monitors) to record your baby's heartbeat and the frequency, length, and strength of your contractions. Depending on the type of monitor, it may remain in your uterus or on your baby's head until . Telemetry. This is a type of continuous monitoring that can be done with external or internal monitors. Instead of having to stay in bed, you are able to move around during telemetry. Physical exam Your health care provider may perform frequent physical exams. This may include: Checking how and where your baby is positioned in your uterus. Checking your cervix to determine: ?Whether it is thinning out (effacing). ?Whether it is opening up (dilating). What happens during labor and delivery? Normal labor and delivery is divided into the following three stages: Stage 1 This is the longest stage of labor. This stage can last for hours or days. Throughout this stage, you will feel contractions. Contractions generally feel mild, infrequent, and irregular at first. They get stronger, more frequent (about every 2 3 minutes), and more regular as you move through this stage. This stage ends when your cervix is completely dilated to 4 inches (10 cm) and completely effaced. Stage 2 This stage starts once your cervix is completely effaced and dilated and lasts until the delivery of your baby. This stage may last from 20 minutes to 2 hours. This is the stage where you will feel an urge to push your baby out of your vagina. You may feel stretching and burning pain, especially when the widest part of your baby's head passes through the vaginal opening (). Once your baby is delivered, the umbilical cord will be clamped and cut. This usually occurs after waiting a period of 1 2 minutes after delivery. Your baby will be placed on your bare chest (ypah-pu-nlzw contact) in an upright position and covered with a warm blanket. Watch your baby for feeding cues, like rooting or sucking, and help the babyto your breast for his or her first feeding. Stage 3 This stage starts immediately after the of your baby and ends after you deliver the placenta. This stage may take anywhere from 5 to 30 minutes. After your baby has been delivered, you will feel contractions as your body expels the placenta andyour uterus contracts to control bleeding. What can I expect after labor and delivery? After labor is over, you and your baby will be monitored closely until you are ready to go home to ensure that you are both healthy. Your health care team will teach you how to care for yourself and your baby. You and your baby will stay in the same room (rooming in) during your hospital stay. This will encourage early bonding and successful . You may continue to receive fluids and medicines through an IV. Your uterus will be checked and massaged regularly (fundal massage). You will have some soreness and pain in your abdomen, vagina, and the area of skin between your vaginal opening and your anus (perineum). If an incision was made near your vagina (episiotomy) or if you had some vaginal tearing during delivery, cold compresses may be placed on your episiotomy or your tear. This helps to reduce pain and swelling. You may be given a squirt bottle to use instead of wiping when you go to the bathroom. To use the squirt bottle, follow these steps: ?Before you urinate, fill the squirt bottle with warm water. Do not use hot water. ?After you urinate, while you are sitting on the toilet, use the squirt bottle to rinse the area around your urethra and vaginal opening. This rinses away any urine and blood. ?Fill the squirt bottle with clean water every time you use the bathroom. It is normal to have vaginal bleeding after delivery. Wear a sanitary pad for vaginal bleeding and discharge. Summary Vaginal delivery means that you will give by pushing your baby out of your canal (vagina). Your health care provider may monitor your contractions (uterine monitoring) and your baby's heart rate ( monitoring). Your health care provider may perform a physical exam. Normal labor and delivery is divided into three stages. After labor is over, you and your baby will be monitored closely until you are ready to go home. This information is not intended to replace advice given to you by your health care provider. Make sure you discuss any questions you have with your health care provider. Document Released: 08/03/2009 Document Revised: 11/29/2018 Document Reviewed: 11/29/2018 [employer] Patient Education 2020 [employer]. Follow Up Care 03/29/2022 22:04:34 With:CAROLINA RAZA MD Address: [address] [place] [address] [facility] [place] [address]- [phone] When: Unknown Comments:schedule initial as scheduled in 3 weeks [facility] 05-16-2022 Hospital Discharge instructions Patient Education 03/23/2022 16:37:22 7 - Labor and Delivery Outpatient Instructions (CUSTOM) [facility] HOME-GOING INSTRUCTIONS _X_ You are to follow up with your physician in ___ days/weeks. ACTIVITY ___ Bedrest ___Activity as tolerated ___ No work/school for ___ days. ___Other PRESCRIPTION GIVEN ___Yes NAUSEA/VOMITING ___ Take small, frequent amounts of clear liquids. Avoid fruit juices and milk. ___ Increase fluid intake to a minimum of 8 ounces of fluid every hour while awake. ___ Soft diet. Rice, crackers, bananas, Jell-O, cooked carrots, applesauce. ___ [place] diet. Avoid caffeine, chocolate, alcohol, spiced/greasy foods. URINARY TRACT INFECTION ___ Drink 8-12 glasses of water every day. ___ Urinate frequently; do not limit fluids to reduce frequency of urination. ___ Call your physician if burning and frequency with urination returns after taking all your medication. ___ Call your physician if you have a temperature of 100.4 degrees Fahrenheit or higher. ___ Wipe from front to back. SIGNS OF PRE-ECLAMPSIA ___ Severe heartburn. ___ Persistent headache not relieved by Tylenol. ___ Increased in swelling of face, hands and feet. ___ Blurred vision, double vision, or spots in the eyes. ___ Persistent vomiting. ___ *Convulsions or seizures. LABOR ___ Restrict activity. ___ Drink 8-12 glasses of water every day. ___ Urinate frequently ___ Pelvic rest. No sexual intercourse/ Call your physician if you experience: ___ Increase in vaginal discharge, leaking fluid, or vaginal bleeding. ___ More than 4, 5, or 6 contractions in one hour. ___ Burning and frequency with urination. DECREASED MOVEMENT ___ Lie down on your left side, drink some fluids and relax. Count the movements. You need tohave 10 movements in 2 hours. ___ If you do not feel the 10 movements, call your physician. OTHER ___ After an exam you may experience some spotting or discharge. As long as it is not bright red and heavy like a period or continues to leak as if your water broke, it is to be expected. ___ LABOR Call your physician if you experience: ___ Painful uterine contractions every ___ minutes for ___ hours. ___A gush or continuous trickle of watery discharge. COME TO THE HOSPITAL AND CALL PHYSICIAN IF: ___ Your abdomen feels continually firm. ___ *Bleeding is bright red and enough to saturate a pad in one hour or less. *Call 911 or go to the nearest Emergency Room for assistance. Form [id number] D: 10/16 Document Released: 10/25/2006 Document Revised: 10/13/2012 Document Reviewed: 10/25/2006 [facility] Patient Information 2012 [employer]. Follow Up Care 03/23/2022 15:55:45 With:RY HADLEY, CAROLINA Alarcon Address: [address] [place] [address] [facility] [place] [address]- [phone] When: Unknown Comments:Follow-up as needed [facility] 05-09-2022 Hospital Discharge instructions Patient Education 03/16/2022 16:46:15 7 - Labor and Delivery Outpatient Instructions (CUSTOM) [facility] HOME-GOING INSTRUCTIONS _X_ You are to follow up with your physician in ___ days/weeks. ACTIVITY ___ Bedrest __x_Activity as tolerated ___ No work/school for ___ days. ___Other PRESCRIPTION GIVEN ___Yes NAUSEA/VOMITING ___ Take small, frequent amounts of clear liquids. Avoid fruit juices and milk. ___ Increase fluid intake to a minimum of 8 ounces of fluid every hour while awake. ___ Soft diet. Rice, crackers, bananas, Jell-O, cooked carrots, applesauce. ___ [place] diet. Avoid caffeine, chocolate, alcohol, spiced/greasy foods. URINARY TRACT INFECTION ___ Drink 8-12 glasses of water every day. ___ Urinate frequently; do not limit fluids to reduce frequency of urination. ___ Call your physician if burning and frequency with urination returns after taking all your medication. ___ Call your physician if you have a temperature of 100.4 degrees Fahrenheit or higher. ___ Wipe from front to back. SIGNS OF PRE-ECLAMPSIA ___ Severe heartburn. ___ Persistent headache not relieved by Tylenol. ___ Increased in swelling of face, hands and feet. ___ Blurred vision, double vision, or spots in the eyes. ___ Persistent vomiting. ___ *Convulsions or seizures. LABOR ___ Restrict activity. __x_ Drink 8-12 glasses of water every day. ___ Urinate frequently ___ Pelvic rest. No sexual intercourse/ Call your physician if you experience: __x_ Increase in vaginal discharge, leaking fluid, or vaginal bleeding. __x_ More than 4, 5, or 6 contractions in one hour. __x_ Burning and frequency with urination. DECREASED MOVEMENT __x_ Lie down on your left side, drink some fluids and relax. Count the movements. You need to have 10 movements in 2 hours. __x_ If you do not feel the 10 movements, call your physician. OTHER ___x After an exam you may experience some spotting or discharge. As long as it is not bright red and heavy like a period or continues to leak as if your water broke, it is to be expected. ___ LABOR Call your physician if you experience: _x__ Painful uterine contractions every __5_ minutes for _2__ hours. _x__A gush or continuous trickle of watery discharge. COME TO THE HOSPITAL AND CALL PHYSICIAN IF: _x__ Your abdomen feels continually firm. __x_ *Bleeding is bright red and enough to saturate a pad in one hour or less. *Call 911 or go to the nearest Emergency Room for assistance. Form [id number] D: 10/16 Document Released: 10/25/2006 Document Revised: 10/13/2012 Document Reviewed: 10/25/2006 [employer] Patient Information 2012 [employer]. Follow Up Care 03/16/2022 15:54:39 With:OSIEL RUFFIN MD Address: [address] [place] [address] [place] [address]- [phone] When: Unknown Comments:Follow-up as scheduled [facility] 04-25-2022 Hospital Discharge instructions Patient Education 03/02/2022 16:46:10 [facility] (AORN) [place] [facility] HOME-GOING INSTRUCTIONS _X_ You are to follow up with your physician in ___ days/weeks. ACTIVITY ___ Bedrest ___Activity as tolerated ___ No work/school for ___ days. ___Other PRESCRIPTION GIVEN ___Yes NAUSEA/VOMITING ___ Take small, frequent amounts of clear liquids. Avoid fruit juices and milk. ___ Increase fluid intake to a minimum of 8 ounces of fluid every hour while awake. ___ Soft diet. Rice, crackers, bananas, Jell-O, cooked carrots, applesauce. ___ [place] diet. Avoid caffeine, chocolate, alcohol, spiced/greasy foods. URINARY TRACT INFECTION ___ Drink 8-12 glasses of water every day. ___ Urinate frequently; do not limit fluids to reduce frequency of urination. ___ Call your physician if burning and frequency with urination returns after taking all your medication. ___ Call your physician if you have a temperature of 100.4 degrees Fahrenheit or higher. ___ Wipe from front to back. SIGNS OF PRE-ECLAMPSIA ___ Severe heartburn. ___ Persistent headache not relieved by Tylenol. ___ Increased in swelling of face, hands and feet. ___ Blurred vision, double vision, or spots in the eyes. ___ Persistent vomiting. ___ *Convulsions or seizures. LABOR ___ Restrict activity. ___ Drink 8-12 glasses of water every day. ___ Urinate frequently ___ Pelvic rest. No sexual intercourse/ Call your physician if you experience: ___ Increase in vaginal discharge, leaking fluid, or vaginal bleeding. ___ More than 4, 5, or 6 contractions in one hour. ___ Burning and frequency with urination. DECREASED MOVEMENT ___ Lie down on your left side, drink some fluids and relax. Count the movements. You need tohave 10 movements in 2 hours. ___ If you do not feel the 10 movements, call your physician. OTHER ___ After an exam you may experience some spotting or discharge. As long as it is not bright red and heavy like a period or continues to leak as if your water broke, it is to be expected. ___ LABOR Call your physician if you experience: ___ Painful uterine contractions every ___ minutes for ___ hours. ___A gush or continuous trickle of watery discharge. COME TO THE HOSPITAL AND CALL PHYSICIAN IF: ___ Your abdomen feels continually firm. ___ *Bleeding is bright red and enough to saturate a pad in one hour or less. *Call 911 or go to the nearest Emergency Room for assistance. Form D: 10/16 Follow Up Care 03/02/2022 16:16:58 With:CAROLINA RAZA Address: [address] [facility] [place] [address]- [phone] Business (1) When: Unknown [facility] 04-18-2022 Hospital Discharge instructions Patient Education 02/23/2022 16:30:26 [facility] (AORN) [place] [facility]-GOING INSTRUCTIONS _X_ You are to follow up with your physician in ___ days/weeks. ACTIVITY ___ Bedrest ___Activity as tolerated ___ No work/school for ___ days. ___Other PRESCRIPTION GIVEN ___Yes NAUSEA/VOMITING ___ Take small, frequent amounts of clear liquids. Avoid fruit juices and milk. ___ Increase fluid intake to a minimum of 8 ounces of fluid every hour while awake. ___ Soft diet. Rice, crackers, bananas, Jell-O, cooked carrots, applesauce. ___ [place] diet. Avoid caffeine, chocolate, alcohol, spiced/greasy foods. URINARY TRACT INFECTION ___ Drink 8-12 glasses of water every day. ___ Urinate frequently; do not limit fluids to reduce frequency of urination. ___ Call your physician if burning and frequency with urination returns after taking all your medication. ___ Call your physician if you have a temperature of 100.4 degrees Fahrenheit or higher. ___ Wipe from front to back. SIGNS OF PRE-ECLAMPSIA ___ Severe heartburn. ___ Persistent headache not relieved by Tylenol. ___ Increased in swelling of face, hands and feet. ___ Blurred vision, double vision, or spots in the eyes. ___ Persistent vomiting. ___ *Convulsions or seizures. LABOR ___ Restrict activity. ___ Drink 8-12 glasses of water every day. ___ Urinate frequently ___ Pelvic rest. No sexual intercourse/ Call your physician if you experience: ___ Increase in vaginal discharge, leaking fluid, or vaginal bleeding. ___ More than 4, 5, or 6 contractions in one hour. ___ Burning and frequency with urination. DECREASED MOVEMENT ___ Lie down on your left side, drink some fluids and relax. Count the movements. You need tohave 10 movements in 2 hours. ___ If you do not feel the 10 movements, call your physician. OTHER ___ After an exam you may experience some spotting or discharge. As long as it is not bright red and heavy like a period or continues to leak as if your water broke, it is to be expected. ___ LABOR Call your physician if you experience: ___ Painful uterine contractions every ___ minutes for ___ hours. ___A gush or continuous trickle of watery discharge. COME TO THE HOSPITAL AND CALL PHYSICIAN IF: ___ Your abdomen feels continually firm. ___ *Bleeding is bright red and enough to saturate a pad in one hour or less. *Call 911 or go to the nearest Emergency Room for assistance. Form D: 10/16 Follow Up Care 02/23/2022 15:58:31 With:RITA KEE Address: [address] [place] [address]'s [facility] [place] [address]- [phone] Business (1) When: Unknown [facility] 02-25-2022 Hospital Discharge instructions Patient Education 01/02/2022 12:10:18 Vertigo, Unspecified Vertigo (Unknown Cause) In addition to helping with hearing, the inner ear is part of the balance center of your body. Problems with the inner ear can a false feeling of motion. This is called vertigo. Often, it feels as ifyou or the room is spinning. A vertigo attack may cause sudden nausea, vomiting and heavy sweating.Severe vertigo causes a loss of balance and can cause you to fall. During vertigo, small head movements and changes in body position will often make the symptoms worse. You may also have ringing in the ears called tinnitus. An episode of vertigo may last seconds, minutes or hours. Once you are over the first episode, it may never come back. However, symptoms may return off and on. The cause of your vertigo is not yet known. Possible causes of vertigo include: Inflammation of the inner ear Disease of the nerves to the inner ear Movement of calcium particles in the inner ear Poor blood flow to the balance centers of the brain Migraine headaches In older adults, the use of more than one medicine along with some health conditions Home care If symptoms are severe, rest quietly in bed. Change positions very slowly. There is usually one position that will feel best, such as lying on one side or lying on your back with your head slightly raised on pillows. Until you have no symptoms, you are at a higher risk of falling. Let someone help you when you get up. Get rid of home hazards such as loose electrical cords and throw rugs. Don t walk in unfamiliar areas that are not lighted. Use night lights in bathrooms and kitchen areas. Do not drive a car or work with dangerous machinery until symptoms have been gone for at least one week. Take medicine as prescribed to relieve your symptoms. Unless another medicine was prescribed for symptoms of nausea, vomiting, and dizziness, you may use [id number] motion sickness pills. Ask your pharmacist for suggestions. Follow-up care Follow up with your healthcare provider or as directed. If you are referred to a specialist or for testing, make the appointment promptly. When to seek medical advice Call your healthcare provider if any of the following occur: Fever of 100.4 F (38 C) or higher, or as directed by your healthcare provider Vertigo worsens or is not controlled by prescribed medicine Repeated vomiting not relieved by prescribed medicine Severe headache Confusion Weakness of an arm or leg or 1 side of the face Difficulty with speech or vision Loss of consciousness Seizure [id number] [employer]. [address] [place] [address]. All rights reserved. This information is not intended as a substitute for professional medical care. Always follow yourhealthcare professional's instructions. Follow Up Care 01/02/2022 11:31:37 With:MARIANN LA MD Address: [address] [place] [id number]- When:2-4 days [facility] Evaluation + Plan note Future Appointments Appointment Date:09/29/2021 10:00:00 AM Scheduled Provider:CAROLINA RAZA MD Location:[facility] Appointment Type: OV OB Routine Follow Up Future Scheduled Tests Laboratory* Chlamydia trachomatis PCR 08/04/21 * N. gonorrhoeae PCR 08/04/21 * Urine Culture 08/04/21 * Urine Drug Screen 08/04/21 Radiology* US OB < 14 weeks 08/19/21 [facility] Evaluation + Plan note Future Appointments Appointment Date:01/08/2022 08:30:00 AM Scheduled Provider:CAROLINA RAZA MD Location:[facility] Appointment Type: OV OB Routine Follow Up Future Scheduled Tests Laboratory* Urine Culture 08/04/21 * Urine Drug Screen 08/04/21 [facility] Evaluation + Plan note Future Appointments Appointment Date:02/26/2022 08:45:00 AM Scheduled Provider:KELSEY SOLANO Location:[facility] Appointment Type: OV OB Routine Follow Up Future Scheduled Tests Laboratory* Glucose Tolerance Test 3 Hour (AO) 01/06/22 * Urine Culture 08/04/21 * Urine Drug Screen 08/04/21 [facility] Evaluation + Plan note Future Appointments Appointment Date:03/05/2022 09:00:00 AM Scheduled Provider:CAROLINA RAZA MD Location:[facility] Appointment Type: OV OB Routine Follow Up Future Scheduled Tests Laboratory* Glucose Tolerance Test 3 Hour (AO) 01/06/22 * Urine Culture 08/04/21 * Urine Drug Screen 08/04/21 [facility] Evaluation + Plan note Future Appointments Appointment Date:03/19/2022 08:30:00 AM Scheduled Provider:CAROLINA RAZA MD Location:[facility] Appointment Type: OV OB Routine Follow Up Future Scheduled Tests Laboratory* Glucose Tolerance Test 3 Hour (AO) 01/06/22 * Urine Culture 08/04/21 * Urine Drug Screen 08/04/21 [facility] Evaluation + Plan note Future Appointments Appointment Date:03/26/2022 08:30:00 AM Scheduled Provider:CAROLINA RAZA MD Location:[facility] Appointment Type: OV OB Routine Follow Up Future Scheduled Tests Laboratory* Glucose Tolerance Test 3 Hour (AO) 01/06/22 * Urine Culture 08/04/21 * Urine Drug Screen 08/04/21 [facility] Evaluation noteNo assessment information available [facility] Work Phone: [facility] note* Diagnosis Sore throat- Primary Acute pharyngitis At increased risk of exposure to COVID-19 virus documented in this encounter [facility] note* Diagnosis Conjunctivitis of both eyes, unspecified conjunctivitis type- Primary documented in this encounter [facility] note* Diagnosis Sore throat- Primary Acute pharyngitis documented in this encounter [facility] note* Diagnosis URI, acute- Primary Acute upper respiratory infections of unspecified site documented in this encounter [facility] note* Diagnosis Candidiasis of breast- Primary Other candidiasis of other specified sites documented in this encounter [facility] note* Diagnosis Acute right ankle pain [facility] Narrative No data available for this section [facility] Hospital Discharge instructions No data available for this section [facility] Progress note No data available for this section [facility] Reason for referral (narrative)* Diagnostic Procedure Only (Urgent) - Closed Specialty Diagnoses / Procedures Referred By Contac t Referred To Contact XR IMAGING Diagnoses Acute right ankle pain Procedures XR ANKLE GENERAL 3V AP/LAT/OBL RIGHT RADEX ANKLE COMPLETE MINIMUM 3 VIEWS Cass Munson APRN.CNP [address] [place] [address] [place] [id number] Referral ID Status Reason Start Date Expiration Date V isits Requested Visits Authorized [id number] Closed Auto-Generate d Referral 02/06/2024 03/07/2025 1 1 [facility] for visit Narrative* Diagnostic Procedure Only (Urgent) - Closed Specialty Diagnoses / Procedures Referred By Ashley t Referred To Contact XR IMAGING Diagnoses Acute right ankle pain Procedures XR ANKLE GENERAL 3V AP/LAT/OBL RIGHT RADEX ANKLE COMPLETE MINIMUM 3 VIEWS Cass Munson APRN.DOCK GRADER [address] [place] [address] [place] [id number] Referral ID Status Reason Start Date Expiration Date V isits Requested Visits Authorized [id number] Closed Auto-Generate d Referral 02/06/2024 03/07/2025 1 1 [facility] note* KISHORE Spencer: PERFORM Event Display: Patient Summary Documents Authored Date: [id number] [facility] Summary note* KISHORE Spencer: PERFORM Event Display: Patient Summary Documents Authored Date: [id number] [facility] Chief Complaint and Reason for Visit Chief Complaint [place] Advance Directives No Advanced Directives Records Found Advance Directive Response Recorded Date/ Time Living Will No February 14, 2019 12:51am Power of Computer Technician No February 14 9 12:51am Health Concerns Infection Onset Date Last Indicated Resolved Time COVID-19 Rule-Out 07/13/2022 07/13/2022 Infection Onset Date Last Indicated Resolved Time COVID-19 Rule-Out 09/05/2023 09/05/2023 Summary Purpose Family History No Family History Records Found Additional Source Comments Care Team (unrecognized sect ion and content) Nurse Administrator Relationship Specialty Start Date End Date Mariann La [address] [place], [place] [id number] PCP - General Family Practice 10/01/17 Nurse Administrator Relationship Specialty Start Date End Date Mariann La [address] [place], [place] [phone] PCP - General Family Medicine 10/01/17 Nurse Administrator Relationship Specialty Start Date End Date Mariann La [address] [place] [address] PCP - General Family Medicine 10/01/17 Nurse Administrator Relationship Specialty Start Date End Date Mariann La [address] [place] [address] PCP - General Family Medicine 10/01/17 Nurse Administrator Relationship Specialty Start Date End Date Mariann La [address] [place] [address] PCP - General Family Medicine 10/01/17 Nurse Administrator Relationship Specialty Start Date End Date Mariann La [address] [place] [address] PCP - General Family Medicine 10/01/17 Goals (unrecognized section and content) Goals may be documented in a n alternate section Source Comments (unrecognize d section and content) In the event this informatio n is protected by the Federal Confidentiality of Alcohol and Drug Abuse Patient Records regulations: The Federal rules restrict any use of the information to criminally investigate or prosecute any alcohol or drug abuse patient.[facility] Center[facility] the event this information is protected by the Federal Confidentiality of Alcohol and Drug Abuse Patient Records regulations: The Federal rules restrict any use of the information to criminally investigate or prosecute any alcohol or drug abuse patient.[facility] Center[facility] the event this information is protected by the Federal Confidentiality of Alcohol and Drug Abuse Patient Records regulations: The Federal rules restrict any use of the information to criminally investigate or prosecute any alcohol or drug abuse patient.[facility] Center[facility] the event this information is protected by the Federal Confidentiality of Alcohol and Drug Abuse Patient Records regulations: The Federal rules restrict any use of the information to criminally investigate or prosecute any alcohol or drug abuse patient.[facility] CenterIn the event this information is protected by the Federal Confidentiality of Alcohol and Drug Abuse Patient Records regulations: The Federal rules restrict any use of the information to criminally investigate or prosecute any alcohol or drug abuse patient.[facility] Center[facility] the event this information is protected by the Federal Confidentiality of Alcohol and Drug Abuse Patient Records regulations: The Federal rules restrict any use of the information to criminally investigate or prosecute any alcohol or drug abuse patient.[facility] CenterIn the event this information is protected by the Federal Confidentiality of Alcohol and Drug Abuse Patient Records regulations: The Federal rules restrict any use of the information to criminally investigate or prosecute any alcohol or drug abuse patient.[facility] Reason for Visit (unrecogniz ed section and content) Reason Comments Nasal Congestion cough, chills, fatig ue, and sore throat x 3 days Reason Comments Conjunctivitis Pain in both eyes, p ossible pink eye started today Reason Comments Sore Throat x 1 week Reason Comments Sore Throat Fatigue, cough, sob, body aches, no appetite x 3 days Reason Comments Results Reason Comments sore right nipple X > 1 week INFORMATION SOURCE (unrecogn ized section and content) DATE CREATED AUTHOR 09/24/2023 [facility] DATE CREATED AUTHOR AUTHOR'S ORGANIZ ATION 04/27/2025 [facility] DATE CREATED AUTHOR AUTHOR'S ORGANIZ ATION 07/27/2025 [facility] FOR RECORDS PERTAINING TO PATIENTS WHO ARE OR HAVE BEEN ENROLLED IN A CHEMICAL DEPENDENCY/SUBSTANCEABUSE PROGRAM, SOME INFORMATION MAY BE OMITTED. This clinical summary was aggregated from multiple sources. Caution should be exercised in using it in the provision of clinical care. This summary normalizes information from multiple sources, and as a consequence, information in this document may materially change the coding, format and clinical context of patient data. In addition, data may be omitted in some cases. CLINICAL DECISIONS SHOULD BE BASED ON THE PRIMARY CLINICAL RECORDS. [employer] [facility] provides no warranty or guarantee of the accuracy or completeness of information in this document.
== END 2025-09-11 23:59 | disposition home or self-care (01) ==
LOC: MTRAD 17:14
PROVIDERS: PCP Family Medicine; Referring Provider Family Medicine; Visit Provider Family Medicine
DX: M25.561 Pain in right knee (principal)
CPT/HCPCS: 73564